=== PATIENT | female | born 1975 | race Hispanic/Latino ===

== ENCOUNTER 2017-12-01 17:04 | Emergency (ER) | payer BC ==
[2017-12-01] MEDS ORDERED: LIDOCAINE 1% MPF 5 ML VIAL ONE (17:57)
--- NOTE | 2017-12-01 18:20 | ER ---
Nurse's Notes 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 Transition of care: patient was not received from another setting of care. Complicating Factors: There are no complicating factors for this patient. Onset of symptoms was December 01, 2017. Care prior to arrival: None. 17:15 Method Of Arrival: Ambulatory 17:15 Acuity: EILEEN 4 hb Triage Assessment: 17:40 General: Appears in no apparent distress. rk2 17:40 General: Behavior is calm, cooperative. Pain: Complains of pain in 2nd finger left rk2 hand. Neuro: Level of Consciousness is alert, obeys commands, Oriented to person, place, time, situation. Respiratory: Reports Airway is patent Respiratory effort is even, unlabored. Derm: Skin is pink, warm \T\ dry. Injury Description: Laceration sustained to left hand. 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 - Social history:: Smoking status: Patient/guardian denies using tobacco. Screenin:40 Abuse screen: Denies threats or abuse. rk2 17:40 Nutritional screening: No deficits noted. Tuberculosis screening: No symptoms or risk rk2 factors identified. Fall Risk None identified. Assessment: 17:40 Injury Description: Laceration is clean, not bleeding. rk2 17:40 Musculoskeletal: No deficits noted. rk2 Vital Signs: 17:13 BP 178 / 99; Pulse 88; Resp 16; Temp 98.1; Pulse Ox 96% on R/A; Weight 98.88 kg; Height hb 5 ft. (152.40 cm); Pain 6/10; 17:13 Body Mass Index 42.57 (98.88 kg, 152.40 cm) hb ED Course: 17:06 Patient arrived in ED. as 17:15 Arm band placed on right wrist. hb 17:16 Triage completed. hb 17:27 Yousif Johnson PA is PHCP. jr8 17:27 Willi Raymond MD is Attending Physician. jr8 17:38 Shruti Talbert, SYMONE is Primary Nurse. rk2 17:40 Patient has correct armband on for positive identification. Bed in low position. Call rk2 light in reach. 18:48 No provider procedures requiring assistance completed. Patient did not have IV access rk2 during this emergency room visit. 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 Exp: rk2 01/18/2020. Lot #: [id number]. } Route: IM; Site: right deltoid; Outcome: 18:19 Discharge ordered by . jr8 18:48 Discharged to home ambulatory. rk2 18:48 Condition: good 18:48 Discharge instructions given to patient. 19:08 Patient left the ED. rk2 Signatures: Ofelia Ma as Yousif Johnson PA PA [facility] Sarah Contreras, RN RN Shruti Talbert, SYMONE RN rk2
--- NOTE | 2017-12-01 18:20 | EDPHYS ---
Physician Documentation [facility] Name: Alesia De Souza Age: 42 yrs Sex: Female : 1975 Arrival Date: 12/01/2017 Time: 17:06 Bed 20 Private MD: ED Physician Willi Raymond HPI: 12/01 17:37 This 42 yrs old Female presents to ER via Ambulatory with complaints of jr8 Laceration - Finger. 17:37 Onset: The symptoms/episode began/occurred acutely, today. Associated signs and jr8 symptoms: The patient has no apparent associated signs or symptoms. Severity of symptoms: At their worst the symptoms were mild, in the emergency department the symptoms are unchanged. The patient has not experienced similar symptoms in the past. The patient has not recently seen a physician. Patient stated that she accidently cut finger . 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 - Social history:: Smoking status: Patient/guardian denies using tobacco. ROS: 17:37 Eyes: Negative for injury, pain, redness, and discharge, ENT: Negative for injury, jr8 pain, and discharge, Neck: Negative for injury, pain, and swelling, Cardiovascular: Negative for chest pain, palpitations, and edema, Respiratory: Negative for shortness of breath, cough, wheezing, and pleuritic chest pain, Abdomen/GI: Negative for abdominal pain, nausea, vomiting, diarrhea, and constipation, Back: Negative for injury and pain, MS/Extremity: Negative for injury and deformity, Neuro: Negative for headache, weakness, numbness, tingling, and seizure. 17:37 Skin: Positive for laceration(s), of the left index finger. Exam: 17:37 Cardiovascular: Regular rate and rhythm with a normal S1 and S2. No gallops, murmurs, jr8 or rubs. Normal PMI, no JVD. No pulse deficits. Respiratory: Lungs have equal breath sounds bilaterally, clear to auscultation and percussion. No rales, rhonchi or wheezes noted. No increased work of breathing, no retractions or nasal flaring. MS/ Extremity: Pulses equal, no cyanosis. Neurovascular intact. Full, normal range of motion. Neuro: Awake and alert, GCS 15, oriented to person, place, time, and situation. Cranial nerves II-XII grossly intact. Motor strength 5/5 in all extremities. Sensory grossly intact. Cerebellar exam normal. Normal gait. 17:37 Skin: injury, laceration(s), the wound is approximately 2 cm(s), with a depth of .5 cm(s), of the left index finger, that can be described as no foreign body, irregular, with mild bleeding. Vital Signs: 17:13 BP 178 / 99; Pulse 88; Resp 16; Temp 98.1; Pulse Ox 96% on R/A; Weight 98.88 kg; Height hb 5 ft. (152.40 cm); Pain 6/10; 17:13 Body Mass Index 42.57 (98.88 kg, 152.40 cm) hb Laceration: 18:17 Wound Repair of 2cm ( 0.8in ) subcutaneous laceration to left index finger. Irregularly jr8 shaped.. Minimal bleeding noted.. Distal neuro/vascular/tendon intact. Anesthesia: Local anesthetic administered with 2 mls of 1% lidocaine. Wound prep: Extensive cleansing with hibiclenz, Wound explored extensively. Skin closed with 8 4-0 Prolene using interrupted sutures and sterile technique. Patient tolerated well. MDM: 17:27 Patient medically screened. jr8 18:17 Data reviewed: vital signs, nurses notes, and as a result, I will discharge patient. jr8 Data interpreted: Pulse oximetry: on room air is 96 %. Interpretation: normal. Counseling: I had a detailed discussion with the patient and/or guardian regarding: the historical points, exam findings, and any diagnostic results supporting the discharge/admit diagnosis, the need for outpatient follow up, a family practitioner, to return to the emergency department if symptoms worsen or persist or if there are any questions or concerns that arise at home. 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 Exp: rk2 01/18/2020. Lot #: [id number]. } Route: IM; Site: right deltoid; Disposition: 12/01/17 18:19 Discharged to Home. Impression: Laceration without foreign body of finger without damage to nail. - Condition is Stable. - Discharge Instructions: Laceration Care, Adult. - Medication Reconciliation Form, Thank You Letter, Antibiotic Education, Prescription Opioid Use form. - Follow up: Private Physician; When: 7 - 10 days; Reason: Wound Recheck, Recheck today's complaints, Continuance of care, Staple/Suture removal, Re-evaluation by your physician. - Problem is new. - Symptoms have improved. Addendum: 12/03/2017 07:56 Co-signature as Attending Physician, Willi Raymond MD I agree with the assessment and c redding plan of care. Signatures: Willi Raymond MD MD cha Roszak, Josh, PA PA jr8 Sarah Contreras RN Shruti Dobbins RN RN rk2
[2017-12-01] MEDS ORDERED: TETANUS & DIPHTHERIA TOX,ADULT 0.5 ML VIAL ONE (18:53)
[2017-12-01 19:19] VITALS: BP 178/99; TEMP 98.1; O2SAT 96
== END 2017-12-01 19:08 | disposition home or self-care (01) ==
LOC: ER 17:04
PROC: 0JQK0ZZ Repair Left Hand Subcutaneous Tissue and Fascia, Open Approach (ICD-10-PCS; principal; 2017-12-01)
DX: S61.211A Laceration without foreign body of left index finger without damage to nail, initial encounter (principal); I10 Essential (primary) hypertension; E11.9 Type 2 diabetes mellitus without complications; W45.8XXA Other foreign body or object entering through skin, initial encounter; Y93.9 Activity, unspecified; Y92.009 Unspecified place in unspecified non-institutional (private) residence as the place of occurrence of the external cause
CPT/HCPCS: 90714; 99283

== ENCOUNTER 2018-06-22 10:16 | Emergency (ER) | payer BC, SELFPAY ==
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
[2018-06-22 12:29] VITALS: TEMP 98.7; O2SAT 100
[2018-06-22 12:30] VITALS: BP 125/85
== END 2018-06-22 12:24 | disposition home or self-care (01) ==
LOC: ER 10:16
DX: S43.402A Unspecified sprain of left shoulder joint, initial encounter (principal); V43.52XA Car driver injured in collision with other type car in traffic accident, initial encounter; Y93.9 Activity, unspecified; Y92.410 Unspecified street and highway as the place of occurrence of the external cause; E11.9 Type 2 diabetes mellitus without complications; I10 Essential (primary) hypertension
CPT/HCPCS: 99283

== ENCOUNTER 2018-08-06 07:32 | Day surgery (SDC) | payer BC ==
[2018-08-06 07:48] LABS: Specific Gravity >= 1.030 (1.005-1.030)
[2018-08-06] MEDS ORDERED: NA CHLORIDE 0.9% 1,000 ML ONE ×2 (07:52→10:28)
[2018-08-06] MEDS ORDERED: FENTANYL CITR 250 MCG/5 ML ONE (08:02)
[2018-08-06] MEDS ORDERED: ROCURONIUM 50 MG/5 ML VIAL IV ONE (08:02)
[2018-08-06] MEDS ORDERED: LIDOCAINE 2% MPF 5 ML VIAL ONE (08:02)
[2018-08-06] MEDS ORDERED: PROPOFOL 200 MG/20 ML VIAL IV ONE (08:02)
[2018-08-06] MEDS ORDERED: ONDANSETRON HCL 40 MG/20 ML VIAL ONE (08:03)
[2018-08-06] MEDS ORDERED: MIDAZOLAM HCL 2 MG/2 ML INJ ONE (08:03)
[2018-08-06] MEDS: CEFAZOLIN/SWI 2gm 2 GM/20 ML SYR IV SCH ×2 (08:14→08:40)
[2018-08-06] MEDS ORDERED: FENTANYL CITR 100 MCG/2 ML ONE (10:36)
[2018-08-06] MEDS ORDERED: KETOROLAC 30 MG/ML INJ ONE (10:38)
[2018-08-06] MEDS ORDERED: HYDROCODONE/APAP 5/325 MG TAB ONE (12:32)
[2018-08-06] MEDS ORDERED: ONDANSETRON 4 MG/2 ML VIAL ONE (12:32)
[2018-08-06 13:27] VITALS: BP 154/84; TEMP 97.6; O2SAT 100
--- NOTE | 2018-08-13 13:05 | OP ---
Date of Procedure: 08/06/2018 Surgeon: Carla Yo MD Harness Maker: Paulie. Preoperative Diagnoses: Heavy menstrual bleeding, bloating, and desired sterilization. Postoperative Diagnoses: Heavy menstrual bleeding, bloating, desired sterilization, extensive omenta l adhesions, bladder adhesions and omental adhesions to the anterior abdominal wall as well as the en tire uterus. Procedures Performed: Diagnostic hysteroscopy followed by endometrial ablation, incomplete ablation with hydrothermal ablation system, but ablation was completed with the help of the NovaSure device. Then, diagnostic laparoscopy, extensive lysis of adhesions, which took more than 50% of the case, and then bilateral salpingectomy. Estimated Blood Loss: Minimal. Complications: No complications. Drains: No drains. Specimens: bilateral tube . Condition: The patient's condition stable. Findings: There were extensive bowel adhesions, omental adhesions anterior abdominal wall and laterally to the omentum and right round ligament omentum to the left adne xa. After all the adhesions were taken down, the tubes were removed completely. ablation, the cervix was extremely elongated , which was about the length of the cavity . Description Of Procedure: After informed consent was verified, she was taken back to the OR, placed in a supine fashion on the operating table. General anesthesia was given. She was placed in a dorsa l lithotomy position using Babatunde stirrups. Pelvic exam performed and abdomen, vulva, vagina, and per ineum were prepped and draped in a sterile fashion. 2 g of Ancef were given preop and SCDs were star geoff. Speculum was placed to expose the cervix both anteriorly and posteriorly, difficulty finding the cerv ix . Anterior lip was grasped with 2 Allis clamps, I was able to pull help of 2 Dasilva speculums and was introduced. The entire length of the cavity was well visualized, however, the HTA sheath entered all the way to the . There was no further lengt h for the HTA sheath to pass through. After priming the device, cavity integrity test was done 4 fidel es by making different adjustments, clamping the cervix. There was no evidence of any leak at any po int. However, once on the fourth attempt after adjusting the device in the uterus, I was able to do the 1 minute heating cycle, . So, once the machine shut off for the third time, we did cav ity integrity test and with drainage of fluid and the procedure was aborted. NovaSure device was taken and a stitch with 0 Vicryl was placed in a [id number] fashion on the _ helpful to keep the occlusion for the NovaSure device. The device was then introduced, amando nded to 11 cm. The cervix was measured directly with the help of the scope to 5.5 cm. Cavity length was set at 5.5 cm. The width of the cavity appeared to be very narrow and with 2 different deployme nts, the cavity only opened to 2 cm with the max 61 butler of power, time 1 minute 56 seconds for abla tion. Once removed and deployed and checked and there was good renetta on the mesh. Diagnostic hysteroscopy was performed. There was good and the scope was removed. Diagnos tic VCare was introduced and fixed in place. The Dukes was placed and drained. This area was draped . A 1 cm infraumbilical incision was made with a scalpel using open laparoscopy technique. Fascia was incised and peritoneum was entered after tagged. 0-Vicryl sutures were placed. S retractors were pl aced entering into the patient's left next to the umbilicus. Once this was obtained, gas was insufflated. Site of entry was checked and was unremarkable. There were adhesions from the ante rior posterior wall. A 5 mm left lower quadrant port was placed without any problems. en, after taking all the adhesions tubes. The tubes were removed 5 mm right lo wer quadrant incision was placed with retraction. Once thorough irrigation and suction done thorough irrigation and suction were performed o f desufflation. Gas was removed. Gas was removed through the abdominal cavity. Then, the stitch wa s closed as well. Then, we went on to finish the diagnostic laparoscopy. After everything was done, there were Vicryl sutures to close the small incision 0 Vicryl suture and subc utaneous incisions closed with the help of 4-0 Monocryl. Dukes, VCare removed. Instrumen t, needle, and sponge counts were done and were correct. At the end of the case, the patient tolerat ed the procedure well. EBL was minimal. She will follow up with me in 1 week. SANJEEV/LISETH Voice ID: [id number] Report ID: [id number]
== END 2018-08-06 13:25 | disposition home or self-care (01) ==
LOC: OR 07:32
PROVIDERS: ATTEND Obstetrics & Gynecology
PROC: 0DNU4ZZ Release Omentum, Percutaneous Endoscopic Approach (ICD-10-PCS; 2018-08-06)
PROC: 0UT74ZZ Resection of Bilateral Fallopian Tubes, Percutaneous Endoscopic Approach (ICD-10-PCS; 2018-08-06)
PROC: 0U5B8ZZ Destruction of Endometrium, Via Natural or Artificial Opening Endoscopic (ICD-10-PCS; principal; 2018-08-06 08:30)
DX: N92.0 Excessive and frequent menstruation with regular cycle (principal); Z30.2 Encounter for sterilization; K66.0 Peritoneal adhesions (postprocedural) (postinfection); N32.89 Other specified disorders of bladder; R14.0 Abdominal distension (gaseous); I10 Essential (primary) hypertension; Z82.49 Family history of ischemic heart disease and other diseases of the circulatory system; Z82.62 Family history of osteoporosis
CPT/HCPCS: 81025; 82962; 88302; J0690; J2250; J2405; J2704; J3010; J7030

== ENCOUNTER 2020-08-08 02:17 | Emergency (ER) | payer BC ==
--- OUTSIDE RECORDS SUMMARY | 2020-08-08 02:19 | XMS REPORT | Continuity of Care Document ---
:1975 Author Organization [facility] t Address [address] [place] [address] Care Team Providers Name Role Phone DR SADIQ Attending Clinician Unavailable Summer RN Attending Clinician Unavailable Pob1, [facility] Attending Clinician Unavailable DR SADIQ Admitting Clinician Unavailable Problems This patient has no known problems. Allergies, Adverse Reactions, Alerts This patient has no known allergies or adverse reactions. Medications This patient has no known medications. Procedures This patient has no known procedures. Encounters Start End Encounter Admission Attending Care Care Encounter Source Date/Time Date/Time Type Type Clinicians Facility Department ID 2020-07-30 2020-07-30 Outpatient Johanny [facility]ABC[facility] [id number] 06:30[facility]00 [facility] 2020-01-17 2020-01-17 Telephone DARRION Wheeler [id number] 00:00:00 00:00:00 Vanda BECK [id number] [facility] [id number] 2020-01-16 2020-01-16 Urgent Pob1, Acute [facility] [id number] 15:27:32 15:47:32 [facility] [id number] [place] [id number] [facility] [phone] nal 0[address] One Results Test Description Test Time Test Comments Results Result Comments Source GLUCOMETER GLUCOSE- LAB USE ONLY 2020-07-30 07:30:00 Test Item Value Reference Range Interpretation Comme nts GLUCOMETER (test code = GMG) 167 mg/dL 70-100 H Meter ID: [id number]: [id number] BACILIO KRISHNAN GLUCOMETER GLUCOSE- LAB USE [id number] 07:30:00 Test Item Value Reference Range Interpretation Comments GLUCOMETER (test code = 178 mg/dL 70-100 H Mete r ID: GMG) [id number] tor: [id number] BECKI SID URINE MONOCLONALFB2020-07-30 04:32:00 Test Item Value Reference Range Interpretation Comments PREG UR (test code = PGU) NEGATIVE NEGATIVE
[2020-08-08] MEDS ORDERED: ONDANSETRON 4 MG/2 ML VIAL ONE (02:47)
[2020-08-08] MEDS ORDERED: MORPHINE 4 MG/ML SYR ONE (02:47)
[2020-08-08] MEDS ORDERED: NA CHLORIDE 0.9% 1,000 ML ONE (02:47)
[2020-08-08] MEDS ORDERED: FAMOTIDINE 20 MG/2 ML VIAL IV ONE (02:47)
[2020-08-08 03:03] LABS: Urine Blood NEGATIVE (NEG); Urine Glucose NEGATIVE (NEG); Urine Protein NEGATIVE (NEG); Urine pH 8.5 (5.0-7.0)
[2020-08-08 03:17] LABS: Basophils % 0.6 % (0-1.3); Hematocrit 38.2 % (36.0-45.0); Lymphocytes % 38.5 % (15.3-44.8); MPV 9.2 fL (7.6-11.3); RBC Red Blood Cell Count 4.39 M/uL (3.86-4.86)
[2020-08-08 03:39] LABS: ALT/SGPT 51 U/L (12-78); AST/SGOT 37 U/L (15-37); Albumin 3.4 g/dL (3.4-5.0); Alkaline Phosphatase 124 U/L (45-117); BUN Blood Urea Nitrogen 9 mg/dL (7-18); Bicarbonate 28 mmol/L (21-32); Bilirubin Direct < 0.1 mg/dL (0-0.2); Bilirubin Total 0.2 mg/dL (0.2-1.0); Glucose Level 151 mg/dL (74-106); Lipase 212 U/L (73-393); Potassium 3.4 mmol/L (3.5-5.1); Protein, Total 8.6 g/dL (6.4-8.2); Sodium Level 138 mmol/L (136-145); Troponin (Emerg Dept Use Only) < 0.02 ng/mL (0.0-0.045)
--- NOTE | 2020-08-08 06:00 | EDPHYS ---
Physician Documentation [facility] Name: Alesia De Souza Age: 45 yrs Sex: Female : 1975 Arrival Date: 08/08/2020 Time: 02:18 Bed 5 Private MD: Wenceslao Garland R ED Physician Arden Adrian HPI: 08/08 02:35 This 45 yrs old Female presents to ER via Ambulatory with complaints of mh7 Abdominal Pain. 02:35 The patient presents with abdominal pain in the epigastric area. Onset: The mh7 symptoms/episode began/occurred 2 day(s) ago. 02:36 The symptoms do not radiate. Associated signs and symptoms:. mh7 02:37 Associated signs and symptoms: Pertinent positives: nausea, Pertinent negatives: mh7 anorexia, blood in stools, chest pain, constipation, diarrhea, dysuria, fever, headache, hematuria, palpitations, shortness of breath, vaginal discharge, vomiting, vomiting blood. The symptoms are described as intermittent, vague, waxing/waning. Modifying factors: The symptoms are alleviated by nothing, the symptoms are aggravated by nothing. Severity of pain: At its worst the pain was moderate last night, in the emergency department the pain is unchanged. 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 - Social history:: Smoking status: Patient reports the use of cigarette tobacco products, denies chronic smoking, but will smoke occasionally, Patient uses alcohol, occasionally. Patient/guardian denies using street drugs. ROS: 02:37 Constitutional: Negative for fever, chills, and weight loss, Eyes: Negative for injury, mh7 pain, redness, and discharge, ENT: Negative for injury, pain, and discharge, Neck: Negative for injury, pain, and swelling, Cardiovascular: Negative for chest pain, palpitations, and edema, Respiratory: Negative for shortness of breath, cough, wheezing, and pleuritic chest pain, Back: Negative for injury and pain, : Negative for injury, bleeding, discharge, and swelling, MS/Extremity: Negative for injury and deformity, Skin: Negative for injury, rash, and discoloration, Neuro: Negative for headache, weakness, numbness, tingling, and seizure, Psych: Negative for depression, anxiety, suicide ideation, homicidal ideation, and hallucinations, Allergy/Immunology: Negative for hives, rash, and allergies, Endocrine: Negative for neck swelling, polydipsia, polyuria, polyphagia, and marked weight changes, Hematologic/Lymphatic: Negative for swollen nodes, abnormal bleeding, and unusual bruising. Exam: 02:37 Head/Face: Normocephalic, atraumatic. Eyes: Pupils equal round and reactive to light, mh7 extra-ocular motions intact. Lids and lashes normal. Conjunctiva and sclera are non-icteric and not injected. Cornea within normal limits. Periorbital areas with no swelling, redness, or edema. Neck: Trachea midline, no thyromegaly or masses palpated, and no cervical lymphadenopathy. Supple, full range of motion without nuchal rigidity, or vertebral point tenderness. No Meningismus. Chest/axilla: Normal chest wall appearance and motion. Nontender with no deformity. No lesions are appreciated. Cardiovascular: Regular rate and rhythm with a normal S1 and S2. No gallops, murmurs, or rubs. Normal PMI, no JVD. No pulse deficits. Respiratory: Lungs have equal breath sounds bilaterally, clear to auscultation and percussion. No rales, rhonchi or wheezes noted. No increased work of breathing, no retractions or nasal flaring. 02:37 Back: No spinal tenderness. No costovertebral tenderness. Full range of motion. Skin: Warm, dry with normal turgor. Normal color with no rashes, no lesions, and no evidence of cellulitis. MS/ Extremity: Pulses equal, no cyanosis. Neurovascular intact. Full, normal range of motion. Neuro: Awake and alert, GCS 15, oriented to person, place, time, and situation. Cranial nerves II-XII grossly intact. Motor strength 5/5 in all extremities. Sensory grossly intact. Cerebellar exam normal. Normal gait. Psych: Awake, alert, with orientation to person, place and time. Behavior, mood, and affect are within normal limits. 02:37 Constitutional: The patient appears in no acute distress, alert, awake, uncomfortable. 02:37 Abdomen/GI: Inspection: obese Bowel sounds: normal, in all quadrants, Palpation: moderate abdominal tenderness, in the epigastric area, right upper quadrant and left upper quadrant, Rectal exam: the exam is deferred, because of patient request, Indicators: McBurney's point is not tender, Suresh's sign is negative, Rovsing's sign is negative, Obturator sign is negative, Psoas sign is negative, Liver: no appreciated palpable abnormalities, Hernia: not appreciated. Vital Signs: 02:25 BP 169 / 106; Pulse 71; Resp 19; Pulse Ox 99% ; Weight 94.8 kg; Height 5 ft. (152.40 rr5 cm); Pain 10/10; 02:31 Temp 97.7; ea 03:30 BP 161 / 95; Pulse 70; Resp 17; Pulse Ox 99% ; Pain 3/10; rr5 04:20 BP 136 / 70; Pulse 73; Resp 16; Pulse Ox 100% ; rr5 05:00 BP 145 / 85; Pulse 79; Resp 16; Pulse Ox 98% ; rr5 05:43 BP 114 / 69; Pulse 71; Resp 18; Pulse Ox 99% ; rr5 06:07 BP 116 / 62; Pulse 70; Resp 16; Pulse Ox 99% ; rr5 02:25 Body Mass Index 40.82 (94.80 kg, 152.40 cm) rr5 MDM: 05:56 Differential diagnosis: bowel obstruction, diverticulitis, gastritis, non-specific abd mh7 pain, pancreatitis, Peritonitis. Data reviewed: vital signs, nurses notes, lab test result(s), cardiac enzymes, CBC, electrolytes, urinalysis, EKG, radiologic studies, CT scan. Data interpreted: Pulse oximetry: on room air is 99 %. Interpretation: normal. Counseling: I had a detailed discussion with the patient and/or guardian regarding: the historical points, exam findings, and any diagnostic results supporting the discharge/admit diagnosis, lab results, radiology results, the need for outpatient follow up, to return to the emergency department if symptoms worsen or persist or if there are any questions or concerns that arise at home. Response to treatment: the patient's symptoms have resolved after treatment, the patient's blood pressure is in an acceptable range, mental status has returned to baseline, the patient no longer shows bradycardia, the patient is not short of breath, the patient is not tachycardic, the patient's pain is gone, the patient's temperature has normalized. 06:[address] [facility] 08/08 02:30 Order name: Basic Metabolic Panel; Complete Time: 04:07 [facility] 08/08 02:30 Order name: CBC with Diff; Complete Time: 03:26 [facility] 08/08 02:30 Order name: Hepatic Function; Complete Time: 04:07 [facility] 08/08 02:30 Order name: Lipase; Complete Time: 04:07 [facility] 08/08 02:30 Order name: Troponin (emerg Dept Use Only); Complete Time: 04:07 [facility] 08/08 02:59 Order name: Urine --Ancillary (enter results); Complete Time: 03:14 [facility] 08/08 02:30 Order name: IV Saline Lock; Complete Time: 02:34 [facility] 08/08 02:59 Order name: Urine Dipstick--Ancillary (enter results); Complete Time: 03:14 [facility] 08/08 04:09 Order name: CT Abd/Pelvis - IV Contrast Only [facility] 08/08 04:09 Order name: CT Chest For PE Angio [facility] 08/08 02:30 Order name: Labs collected and sent; Complete Time: 02:34 [facility] 08/08 02:30 Order name: Urine Dipstick-Ancillary (obtain specimen); Complete Time: 02:41 [facility] 08/08 02:30 Order name: Urine Test (obtain specimen); Complete Time: 02:41 [facility] Administered Medications: 02:40 Drug: NS 0.9% 1000 ml Route: IV; Rate: 1000 ml; Site: left antecubital; rr5 04:00 Follow up: Response: No adverse reaction; IV Status: Completed infusion; IV Intake: rr5 1000ml 02:40 Drug: Zofran (Ondansetron) 4 mg Route: IVP; Site: left antecubital; rr5 03:40 Follow up: Response: No adverse reaction rr5 02:42 Drug: Pepcid 20 mg Route: IVP; Site: left antecubital; rr5 03:40 Follow up: Response: No adverse reaction rr5 02:45 Drug: morphine 4 mg Route: IVP; Site: left antecubital; rr5 03:45 Follow up: Response: No adverse reaction; Pain is decreased; RASS: Alert and Calm (0) rr5 Disposition: 08/08/20 06:00 Discharged to Home. Impression: Upper abdominal pain, unspecified, Diverticulosis. - Condition is Stable. - Discharge Instructions: Diverticulosis, Abdominal Pain, Adult, [id number]. - Prescriptions for Zofran ODT 4 mg Oral tablet,disintegrating - place 1 tablet by TRANSLINGUAL route every 8 hours As needed; 6 tablet. Bentyl 20 mg Oral Tablet - take 1 tablet by ORAL route every 6 hours As needed; 20 tablet. Pepcid 20 mg Oral Tablet - take 1 tablet by ORAL route every 12 hours for 5 days; 10 tablet. - Medication Reconciliation Form, Thank You Letter, Antibiotic Education, Prescription Opioid Use form. - Follow up: Private Physician; When: 1 - 2 days; Reason: Worsening of condition, Recheck today's complaints, Continuance of care, Re-evaluation by your physician. - Problem is new. - Symptoms have improved. Signatures: Dispatcher [employer] EDJoseph Nagel RN RN rr5 Arden Adrian MD MD mh7 Corrections: (The following items were deleted from the chart) 06:08 06:00 08/08/2020 06:00 Discharged to Home. Impression: Upper abdominal pain, rr5 unspecified; Diverticulosis. Condition is Stable. Forms are Medication Reconciliation Form, Thank You Letter, Antibiotic Education, Prescription Opioid Use. Follow up: Private Physician; When: 1 - 2 days; Reason: Worsening of condition, Recheck today's complaints, Continuance of care, Re-evaluation by your physician. Problem is new. Symptoms have improved. mh7
--- NOTE | 2020-08-08 06:00 | ER ---
Nurse's Notes [facility] Name: Alesia De Souza Age: 45 yrs Sex: Female : 1975 Arrival Date: 08/08/2020 Time: 02:18 Bed 5 Private MD: Wenceslao Garland R Diagnosis: Upper abdominal pain, unspecified;Diverticulosis Presentation: 08/08 02:25 Chief complaint: Patient states: I have this epigastric pain started couple of days rr5 ago. I took kishan seltzer and milk of magnesia but it did not work it got worse and worse. 02:25 Coronavirus screen: Client denies travel out of the [place] in the last 14 days. At this rr5 time, the client does not indicate any symptoms associated with coronavirus-19. Ebola Screen: Patient negative for fever greater than or equal to 101.5 degrees Fahrenheit, and additional compatible Ebola Virus Disease symptoms Patient denies exposure to infectious person. Patient denies travel to an Ebola-affected area in the 21 days before illness onset. Initial Sepsis Screen: Does the patient meet any 2 criteria? No. Patient's initial sepsis screen is negative. Does the patient have a suspected source of infection? No. Patient's initial sepsis screen is negative. Risk Assessment: Do you want to hurt yourself or someone else? Patient reports no desire to harm self or others. Onset of symptoms was August 08, 2020. 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 - Social history:: Smoking status: Patient reports the use of cigarette tobacco products, denies chronic smoking, but will smoke occasionally, Patient uses alcohol, occasionally. Patient/guardian denies using street drugs. Screenin:20 Abuse screen: Denies threats or abuse. Denies injuries from another. Nutritional rr5 screening: No deficits noted. Tuberculosis screening: No symptoms or risk factors identified. Fall Risk IV access (20 points). Total Johnson Fall Scale indicates No Risk (0-24 pts). Assessment: 02:20 General: Appears in no apparent distress. uncomfortable, Behavior is calm, cooperative, rr5 appropriate for age. 02:20 Pain: Complains of pain in epigastric area Pain radiates to back Pain currently is 10 rr5 out of 10 on a pain scale. Quality of pain is described as aching, Pain began gradually, Is intermittent. Neuro: Level of Consciousness is awake, alert, obeys commands, Oriented to person, place, time, situation. Cardiovascular: Capillary refill < 3 seconds Patient's skin is warm and dry. Respiratory: Airway is patent Respiratory effort is even, labored, Respiratory pattern is regular, symmetrical. GI: Reports upper abdominal pain, Patient currently denies nausea, vomiting. : No signs and/or symptoms were reported regarding the genitourinary system. EENT: No signs and/or symptoms were reported regarding the EENT system. Derm: Skin is intact, is healthy with good turgor, Skin temperature is warm. Musculoskeletal: Circulation, motion, and sensation intact. Capillary refill < 3 seconds. 03:30 Reassessment: Patient appears in no apparent distress at this time. Patient is alert, rr5 oriented x 3, equal unlabored respirations, skin warm/dry/pink. awaiting for results. 04:30 Reassessment: Patient appears in no apparent distress at this time. Patient is alert, rr5 oriented x 3, equal unlabored respirations, skin warm/dry/pink. awaiting for review Patient states symptoms have improved. 05:44 Reassessment: Patient appears in no apparent distress at this time. Patient is alert, rr5 oriented x 3, equal unlabored respirations, skin warm/dry/pink. resting eyes closed on side lying position breathing spontaneously at room air. 06:07 Reassessment: Patient appears in no apparent distress at this time. Patient is alert, rr5 oriented x 3, equal unlabored respirations, skin warm/dry/pink. discharge instruction given and explained without complaints made. Vital Signs: 02:25 BP 169 / 106; Pulse 71; Resp 19; Pulse Ox 99% ; Weight 94.8 kg; Height 5 ft. (152.40 rr5 cm); Pain 10/10; 02:31 Temp 97.7; ea 03:30 BP 161 / 95; Pulse 70; Resp 17; Pulse Ox 99% ; Pain 3/10; rr5 04:20 BP 136 / 70; Pulse 73; Resp 16; Pulse Ox 100% ; rr5 05:00 BP 145 / 85; Pulse 79; Resp 16; Pulse Ox 98% ; rr5 05:43 BP 114 / 69; Pulse 71; Resp 18; Pulse Ox 99% ; rr5 06:07 BP 116 / 62; Pulse 70; Resp 16; Pulse Ox 99% ; rr5 02:25 Body Mass Index 40.82 (94.80 kg, 152.40 cm) rr5 ED Course: 02:18 Patient arrived in ED. am2 02:18 Wenceslao Garland MD is Private Physician. am2 02:18 Joseph Moore RN is Primary Nurse. rr5 02:18 Arden Adrian MD is Attending Physician. mh7 02:20 Patient has correct armband on for positive identification. Bed in low position. Call rr5 light in reach. Pulse ox on. NIBP on. 02:29 Triage completed. rr5 02:30 Inserted saline lock: 20 gauge in left antecubital area, using aseptic technique. Blood ds4 collected. 02:31 Arm band placed on right wrist. rr5 04:00 No provider procedures requiring assistance completed. Patient maintains SpO2 rr5 saturation greater than 95% on room air. 04:57 CT Abd/Pelvis - IV Contrast Only In Process Unspecified. EDMS 04:57 CT Chest For PE Angio In Process Unspecified. EDMS 06:08 IV discontinued, intact, bleeding controlled, No redness/swelling at site. Pressure rr5 dressing applied. Administered Medications: 02:40 Drug: NS 0.9% 1000 ml Route: IV; Rate: 1000 ml; Site: left antecubital; rr5 04:00 Follow up: Response: No adverse reaction; IV Status: Completed infusion; IV Intake: rr5 1000ml 02:40 Drug: Zofran (Ondansetron) 4 mg Route: IVP; Site: left antecubital; rr5 03:40 Follow up: Response: No adverse reaction rr5 02:42 Drug: Pepcid 20 mg Route: IVP; Site: left antecubital; rr5 03:40 Follow up: Response: No adverse reaction rr5 02:45 Drug: morphine 4 mg Route: IVP; Site: left antecubital; rr5 03:45 Follow up: Response: No adverse reaction; Pain is decreased; RASS: Alert and Calm (0) rr5 Intake: 04:00 IV: 1000ml; Total: 1000ml. rr5 Outcome: 06:00 Discharge ordered by MD. hinojosa 06:08 Discharged to home ambulatory. rr5 06:08 Condition: improved 06:08 Discharge instructions given to patient, Instructed on discharge instructions, follow up and referral plans. medication usage, Demonstrated understanding of instructions, follow-up care, medications, Prescriptions given X 3. 06:08 Patient left the ED. rr5 Signatures: Dispatcher [employer] EDMS Darrel Robert ds4 Alexandra Morgan am2 Deedee Ledesma, Joseph Mott RN, ea, RN RN rr5 Arden Adrian MD MD 7
[2020-08-08 08:54] VITALS: TEMP 97.7
[2020-08-08 09:05] VITALS: O2SAT 99
[2020-08-08 09:06] VITALS: BP 116/62
--- NOTE | 2020-08-09 09:56 | RAD REPORT ---
EXAM DESCRIPTION: CT - Chest For Pe Angio - 08/08/2020 5:32 am CLINICAL HISTORY: Pain. COMPARISON: None. TECHNIQUE: Axial CT imaging of the thorax utilizing intravenous contrast. Reformatted multiplanar im ages obtained including reconstructed maximum intensity projection images. This exam was performed according to our departmental dose-optimization program which includes automa geoff exposure control, adjustment of the mA and/or kV according to patient size and/or use of iterativ e reconstruction technique FINDINGS: PULMONARY ARTERIES: Normal caliber main pulmonary artery. There is no pulmonary artery filling defect to suggest embolism. HEART/GREAT VESSELS: Heart is normal in size. Normal caliber thoracic aorta. There is a bovine b ranch pattern of the arch vessels. MEDIASTINUM/TK: No adenopathy. Normal central airways. Normal esophagus. LUNGS/PLEURA: Lungs are clear. No pneumothorax. No pleural fluid. Lung volumes are low. CHEST WALL/SOFT TISSUES: Unremarkable thyroid. No axillary adenopathy. The sternum is intact. Mild thoracic spondylosis. UPPER ABDOMEN: There is moderate fatty liver infiltration. Unremarkable spleen, pancreas, and imag ed stomach. Left adrenal gland appears normal. IMPRESSION: 1. No pulmonary embolism. No acute cardia pulmonary finding. 2. Moderate fatty liver infiltration. 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 The interpreting r adiologist is fully responsible for the content of the report.
--- NOTE | 2020-08-09 10:49 | RAD REPORT ---
EXAM DESCRIPTION: CT - Abdomen Pelvis W Contrast - 08/08/2020 6:58 am CLINICAL HISTORY: Epigastric pain for 2 to 3 days. COMPARISON: CT abdomen and pelvis with contrast 11/14/2016. TECHNIQUE: Axial CT imaging of the abdomen and pelvis performed with intravenous contrast. Reformatt ed coronal and sagittal images reviewed. A dose reduction technique was utilized with automated exposure control according to patient size. FINDINGS: Clear lung bases. Heart is normal in size. Liver is enlarged to greater than 22 cm. No liver mass or biliary dilatation. Gallbladder has bee n resected. Normal spleen. There is fatty atrophy of the pancreas. Unremarkable adrenal glands and kidneys. Normal caliber aorta and inferior vena cava. No retroperitoneal lymphadenopathy. M esenteric vessels appear normal. Unremarkable stomach. Small bowel loops are unremarkable. Normal appendix in the right lower quad rant. Numerous fluid levels within the ascending and transverse colon. Mild descending and sigmoi d colon diverticulosis. No diverticulitis. No ascites or free air. No mesenteric adenopathy. Normal appearance of the bladder and uterus. Small left ovarian follicles. There is a 3.2 cm righ t ovarian follicle. No pelvic free fluid or adenopathy. Moderate lower thoracic spondylosis. No rmal lumbosacral alignment. Intact bony pelvis. Normal hips. IMPRESSION: 1. Marked hepatomegaly with moderate steatosis. 2. Fluid levels within the colon suggestive of mild enteritis. 3. Mild descending and sigmoid colon diverticulosis without diverticulitis. 4. 3.2 cm right ovarian follicle. Electronically signed by: Dayana Rousseau DO 08/08/2020 5:45 AM LABORER [employer]ROLE[employer] REFINERY Due to temporary technical issues with the PACS/Fluency reporting system, reports are being signed by the in house radiologist without review as a courtesy to ensure prompt reporting. The interpreting r adiologist is fully responsible for the content of the report.
== END 2020-08-08 06:08 | disposition home or self-care (01) ==
LOC: ER 02:17
DX: K57.30 Diverticulosis of large intestine without perforation or abscess without bleeding (principal); I10 Essential (primary) hypertension; E11.9 Type 2 diabetes mellitus without complications; Z72.0 Tobacco use
CPT/HCPCS: 96361; 93005; 85025; 80048; 36415; 81025; 80076; 81003; 84484; 83690; 71275; 74177; 96375; 96374; 99284; Q9967; J7030; J2405

== ENCOUNTER 2020-08-10 01:12 | Emergency (ER) | payer BC ==
[2020-08-10] MEDS ORDERED: LIDOCAINE VISCOUS 2% SOLN 15 ML UDC PO ONE (01:13)
--- OUTSIDE RECORDS SUMMARY | 2020-08-10 01:13 | XMS REPORT | Continuity of Care Document ---
:1975 Author Organization [facility] t Address [address] [place] [address] Care Team Providers Name Role Phone DR SADIQ Attending Clinician Unavailable Summer RN Attending Clinician Unavailable Pob1, [facility] Attending Clinician Unavailable DR [...] Department ID 2020-07-30 2020-07-30 Outpatient Johanny [facility]ABCOCK [facility] [id number] 06[facility]30[facility]00 [facility] 2020-01-17 2020-01-17 Telephone DARRION Wheeler [id number] 00:00:00 00:00:00 Vanda BECK [id number] [facility] [id number] 2020-01-16 2020-01-16 Urgent Pob1, Acute [facility] [id number] 15:27:32 15:47:32 [facility] [id number] [place] [id number] [facility] [phone] nal 0[address] One Results Test Description Test Time Test Comments Results Result Comments Source GLUCOMETER GLUCOSE- LAB USE ONLY 2020-07-30 07:30:00 Test Item Value Reference Range Interpretation Comme nts GLUCOMETER (test code = GMG) 167 mg/dL 70-100 H Meter ID: [id number]: [id number] BACILIO KRISHNAN GLUCOMETER GLUCOSE- LAB USE [id number] 07:30:00 Test Item Value Reference Range Interpretation Comments GLUCOMETER (test code = 178 mg/dL 70-100 H Mete r ID: GMG) [id number] tor: [id number] BECKI SID URINE MONOCLONALFB2020-07-30 04:32:00 Test Item Value Reference Range Interpretation Comments PREG UR (test code = PGU) NEGATIVE NEGATIVE
[2020-08-10] MEDS ORDERED: ONDANSETRON 4 MG/2 ML VIAL ONE (02:23)
[2020-08-10] MEDS ORDERED: HYDROMORPHONE HCL 1 MG/ML INJ ONE (02:23)
[2020-08-10] MEDS ORDERED: MAGNES/ALUMIN/SIMET 30ML UCUP ONE (02:23)
[2020-08-10] MEDS ORDERED: FAMOTIDINE 20 MG/2 ML VIAL IV ONE (02:23)
[2020-08-10 02:44] LABS: Absolute Lymphocytes (CBC) 3.5 K/uL (0.7-4.9); Hematocrit 36.7 % (36.0-45.0); Lymphocytes % 32.9 % (15.3-44.8); MPV 9.1 fL (7.6-11.3); RBC Red Blood Cell Count 4.22 M/uL (3.86-4.86)
[2020-08-10 02:54] LABS: ALT/SGPT 53 U/L (12-78); AST/SGOT 36 U/L (15-37); Albumin 3.2 g/dL (3.4-5.0); Alkaline Phosphatase 113 U/L (45-117); BUN Blood Urea Nitrogen 13 mg/dL (7-18); Bicarbonate 26 mmol/L (21-32); Bilirubin Direct < 0.1 mg/dL (0-0.2); Bilirubin Total 0.2 mg/dL (0.2-1.0); Glucose Level 194 mg/dL (74-106); Lipase 267 U/L (73-393); Potassium 3.9 mmol/L (3.5-5.1); Sodium Level 137 mmol/L (136-145)
[2020-08-10] MEDS ORDERED: CEFTRIAXONE/SWI 1gm 1 GM/10 ML SYR ONE (03:11)
[2020-08-10] MEDS ORDERED: METRONIDAZOLE 500mg IVPB 500 MG/100 ML BAG IV ONE (03:11)
[2020-08-10] MEDS ORDERED: NA CHLORIDE 0.9% 1,000 ML ONE (03:42)
--- NOTE | 2020-08-10 04:36 | EDPHYS ---
Physician Documentation [facility] Name: Alesia De Souza Age: 45 yrs Sex: Female : 1975 Arrival Date: 08/10/2020 Time: 01:14 Bed 4 Private MD: ED Physician Fredrick Vazquez HPI: 08/10 02:16 This 45 yrs old Female presents to ER via Ambulatory with complaints of abd ma2 pain. 02:16 The patient or guardian reports chest pain that is located primarily in the upper ma2 abdomin. Onset: gradually, 1 week(s) ago. Associated signs and symptoms: Pertinent negatives: cough, dizziness, lower extremity pain, nausea, syncope, vomiting. Severity of pain: At its worst the pain was moderate in the emergency department the pain is unchanged. 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 - Social history:: Smoking status: unknown Patient/guardian denies using alcohol, street drugs, The patient lives with family. - Family history:: not pertinent. ROS: 02:16 Constitutional: Negative for fever, chills, and weight loss. ma2 02:16 All other systems are negative. Exam: 02:16 Constitutional: This is a well developed, well nourished patient who is awake, alert, ma2 and in no acute distress. Head/Face: Normocephalic, atraumatic. Eyes: Pupils equal round and reactive to light, extra-ocular motions intact. Lids and lashes normal. Conjunctiva and sclera are non-icteric and not injected. Cornea within normal limits. Periorbital areas with no swelling, redness, or edema. ENT: Nares patent. No nasal discharge, no septal abnormalities noted. Tympanic membranes are normal and external auditory canals are clear. Oropharynx with no redness, swelling, or masses, exudates, or evidence of obstruction, uvula midline. Mucous membranes moist. Neck: Trachea midline, no thyromegaly or masses palpated, and no cervical lymphadenopathy. Supple, full range of motion without nuchal rigidity, or vertebral point tenderness. No Meningismus. Chest/axilla: Normal chest wall appearance and motion. Nontender with no deformity. No lesions are appreciated. Cardiovascular: Regular rate and rhythm with a normal S1 and S2. No gallops, murmurs, or rubs. Normal PMI, no JVD. No pulse deficits. Respiratory: Lungs have equal breath sounds bilaterally, clear to auscultation and percussion. No rales, rhonchi or wheezes noted. No increased work of breathing, no retractions or nasal flaring. Abdomen/GI: Soft, non-tender, with normal bowel sounds. No distension or tympany. No guarding or rebound. No evidence of tenderness throughout. Skin: Warm, dry with normal turgor. Normal color with no rashes, no lesions, and no evidence of cellulitis. MS/ Extremity: Pulses equal, no cyanosis. Neurovascular intact. Full, normal range of motion. Neuro: Awake and alert, GCS 15, oriented to person, place, time, and situation. Cranial nerves II-XII grossly intact. Motor strength 5/5 in all extremities. Sensory grossly intact. Cerebellar exam normal. Normal gait. Vital Signs: 01:20 BP 193 / 90; Pulse 80; Resp 20; Temp 98.6; Pulse Ox 99% on R/A; rr5 01:20 Weight 94.8 kg; Height 5 ft. 2 in. (157.48 cm); Pain 10/10; rr5 02:30 BP 139 / 71; Pulse 68; Resp 18; Pulse Ox 95% on R/A; wh 03:24 BP 133 / 75; Pulse 84; Resp 19; Pulse Ox 99% ; rr5 04:46 BP 121 / 80; Pulse 80; Resp 16; Pulse Ox 99% ; rr5 01:20 Body Mass Index 38.23 (94.80 kg, 157.48 cm) rr5 MDM: 01:18 Patient medically screened. ma2 02:16 Differential diagnosis: gastroesophageal reflux disease (GERD), pancreatitis, pleurisy, ma2 pneumonia. Data reviewed: vital signs, nurses notes. Counseling: I had a detailed discussion with the patient and/or guardian regarding: the historical points, exam findings, and any diagnostic results supporting the discharge/admit diagnosis, the presence of at least one elevated blood pressure reading (>120/80) during this emergency department visit. 04:33 ED course: ct shows simple diverticulitis, she was here 2 days ago and was given ma2 prescription of antibiotics, however she did not take them as she was getting dental work and was told to stay npo, npw patient feels better, all symptoms resolved, vs wnl and blood work wnl . 08/10 02:09 Order name: Basic Metabolic Panel; Complete Time: 03:37 ma2 08/10 02:09 Order name: CBC with Diff; Complete Time: 03:37 ma2 08/10 02:09 Order name: Hepatic Function; Complete Time: 03:37 ma2 08/10 02:09 Order name: Lipase; Complete Time: 03:37 ma2 08/10 02:09 Order name: CT Abd/Pelvis - IV Contrast Only ma2 08/10 01:43 Order name: EKG - Nurse/Tech; Complete Time: 01:43 rr5 08/10 02:09 Order name: IV Saline Lock; Complete Time: 02:16 ma2 08/10 02:09 Order name: Labs collected and sent; Complete Time: 02:16 ma2 Administered Medications: 02:13 Drug: GI Cocktail without - (Maalox Suspension 30 ml, Lidocaine Liquid 2 % 15 rr5 ml) Route: PO; 03:22 Follow up: Response: No adverse reaction; Pain is decreased 02:14 Drug: Pepcid 20 mg Route: IVP; Site: left antecubital; rr5 03:22 Follow up: Response: No adverse reaction 02:15 Drug: Zofran (Ondansetron) 4 mg Route: IVP; Site: left antecubital; rr5 03:23 Follow up: Response: No adverse reaction 02:16 Drug: NS 0.9% 1000 ml Route: IV; Rate: 1 bolus; Site: left antecubital; rr5 03:23 Follow up: Response: No adverse reaction; IV Status: Completed infusion 02:18 Drug: Dilaudid 1 mg {Note: rass 0.} Route: IVP; Site: left antecubital; rr5 03:23 Follow up: Response: No adverse reaction; Pain is decreased; RASS: Alert and Calm (0) 03:20 Drug: Rocephin 1 grams Route: IV; Rate: calculated rate; Site: left antecubital; 03:45 Follow up: Response: No adverse reaction; IV Status: Completed infusion; IV Intake: [id number] 03:22 Drug: Flagyl 500 mg Volume: 100 ml; Route: IVPB; Rate: 200 ml/hr; Infused Over: 30 wh mins; Site: left antecubital; 04:05 Follow up: Response: No adverse reaction; IV Status: Completed infusion; IV Intake: rr5 100ml Disposition: 08/10/20 04:35 Discharged to Home. Impression: Diverticulitis of intestine, part unspecified, without perforation or abscess without bleeding. - Condition is Stable. - Discharge Instructions: Diverticulitis. - Prescriptions for Zofran 4 mg Oral Tablet - take 1 tablet by ORAL route every 12 hours As needed; 20 tablet. Pepcid 20 mg Oral Tablet - take 1 tablet by ORAL route once daily for 10 days; 10 tablet. - Medication Reconciliation Form, Thank You Letter, Antibiotic Education, Prescription Opioid Use form. - Follow up: Private Physician; When: Tomorrow; Reason: Continuance of care. Signatures: Dispatcher [employer] EDMS Tootie Blanco Frerdick Vazquez MD MD ma2 Joseph Moore RN RN rr5 Corrections: (The following items were deleted from the chart) 04:47 04:35 08/10/2020 04:35 Discharged to Home. Impression: Diverticulitis of intestine, rr5 part unspecified, without perforation or abscess without bleeding. Condition is Stable. Prescriptions for Zofran 4 mg Oral Tablet - take 1 tablet by ORAL route every 12 hours As needed; 20 tablet, Pepcid 20 mg Oral Tablet - take 1 tablet by ORAL route once daily for 10 days; 10 tablet. and Forms are Medication Reconciliation Form, Thank You Letter, Antibiotic Education, Prescription Opioid Use. Follow up: Private Physician; When: Tomorrow; Reason: Continuance of care. uday
--- NOTE | 2020-08-10 04:36 | ER ---
Nurse's Notes [facility] Name: Alesia De Souza Age: 45 yrs Sex: Female : 1975 Arrival Date: 08/10/2020 Time: 01:14 Bed 4 Private MD: Diagnosis: Diverticulitis of intestine, part unspecified, without perforation or abscess without bleeding Presentation: 08/10 01:20 Chief complaint: Patient states: having this chest pain going to my back. the pain is rr5 same as before when I came here. 01:20 Coronavirus screen: Client denies travel out of the [place] in the last 14 days. At this rr5 time, the client does not indicate any symptoms associated with coronavirus-19. Ebola Screen: Patient negative for fever greater than or equal to 101.5 degrees Fahrenheit, and additional compatible Ebola Virus Disease symptoms Patient denies exposure to infectious person. Patient denies travel to an Ebola-affected area in the 21 days before illness onset. 01:20 Method Of Arrival: Ambulatory rr5 01:20 Initial Sepsis Screen: Does the patient meet any 2 criteria? No. Patient's initial rr5 sepsis screen is negative. Does the patient have a suspected source of infection? No. Patient's initial sepsis screen is negative. Risk Assessment: Do you want to hurt yourself or someone else? Patient reports no desire to harm self or others. 01:20 Acuity: EILEEN 3 rr5 01:20 Onset of symptoms was August 09, 2020 at 18:00. 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 - Social history:: Smoking status: unknown Patient/guardian denies using alcohol, street drugs, The patient lives with family. - Family history:: not pertinent. Screenin:19 Abuse screen: Denies threats or abuse. Denies injuries from another. Nutritional rr5 screening: No deficits noted. Tuberculosis screening: No symptoms or risk factors identified. Fall Risk IV access (20 points). Total Johnson Fall Scale indicates No Risk (0-24 pts). Assessment: 01:30 General: Appears in no apparent distress. uncomfortable, Behavior is calm, cooperative, wh appropriate for age. Pain: Complains of pain in right upper quadrant and left upper quadrant Pain does not radiate. Pain began 2-3 days ago. Neuro: Level of Consciousness is awake, alert, obeys commands, Oriented to person, place, time, situation, Appropriate for age. Cardiovascular: Heart tones S1 S2. Respiratory: Airway is patent Respiratory effort is even, unlabored, Respiratory pattern is regular, symmetrical, Breath sounds are clear bilaterally. GI: Abdomen is flat, non-distended, Abd is soft and non tender X 4 quads. Reports upper abdominal pain. : No signs and/or symptoms were reported regarding the genitourinary system. EENT: No signs and/or symptoms were reported regarding the EENT system. Derm: Skin is intact, is healthy with good turgor, Skin is pink, warm \T\ dry. normal. Musculoskeletal: Circulation, motion, and sensation intact. 02:25 Reassessment: Patient appears in no apparent distress at this time. No changes from previously documented assessment. Patient and/or family updated on plan of care and expected duration. Pain level reassessed. Patient is alert, oriented x 3, equal unlabored respirations, skin warm/dry/pink. 03:24 Reassessment: Patient appears in no apparent distress at this time. Patient is alert, rr5 oriented x 3, equal unlabored respirations, skin warm/dry/pink. back from CTscan. 03:40 Reassessment: Patient appears in no apparent distress at this time. Patient is alert, rr5 oriented x 3, equal unlabored respirations, skin warm/dry/pink. awaiting for CT result Patient states feeling better. Patient states symptoms have improved. 04:45 Reassessment: Patient appears in no apparent distress at this time. Patient is alert, rr5 oriented x 3, equal unlabored respirations, skin warm/dry/pink. discharge instruction given and explained without complaints made Patient states feeling better. Patient states symptoms have improved. Vital Signs: 01:20 BP 193 / 90; Pulse 80; Resp 20; Temp 98.6; Pulse Ox 99% on R/A; rr5 01:20 Weight 94.8 kg; Height 5 ft. 2 in. (157.48 cm); Pain 10/10; rr5 02:30 BP 139 / 71; Pulse 68; Resp 18; Pulse Ox 95% on R/A; wh 03:24 BP 133 / 75; Pulse 84; Resp 19; Pulse Ox 99% ; rr5 04:46 BP 121 / 80; Pulse 80; Resp 16; Pulse Ox 99% ; rr5 01:20 Body Mass Index 38.23 (94.80 kg, 157.48 cm) rr5 ED Course: 01:14 Patient arrived in ED. cl3 01:17 Joseph Moore, RN is Primary Nurse. rr5 01:18 Fredrick Vazquez MD is Attending Physician. ma2 01:30 Patient maintains SpO2 saturation greater than 95% on room air. wh 01:30 EKG done, by ED staff, reviewed by Fredrick Vazquez MD. rr5 01:30 Patient has correct armband on for positive identification. Placed in gown. Bed in low wh position. Call light in reach. Side rails up X 1. stitcher set up operator automatic on. Pulse ox on. NIBP on. 01:34 Inserted saline lock: 20 gauge in left antecubital area, using aseptic technique. Blood jb5 collected. 01:40 Triage completed. rr5 01:40 Arm band placed on right wrist. rr5 03:43 CT Abd/Pelvis - IV Contrast Only In Process Unspecified. EDMS 04:46 No provider procedures requiring assistance completed. IV discontinued, intact, rr5 bleeding controlled, No redness/swelling at site. Pressure dressing applied. Administered Medications: 02:13 Drug: GI Cocktail without - (Maalox Suspension 30 ml, Lidocaine Liquid 2 % 15 rr5 ml) Route: PO; 03:22 Follow up: Response: No adverse reaction; Pain is decreased 02:14 Drug: Pepcid 20 mg Route: IVP; Site: left antecubital; rr5 03:22 Follow up: Response: No adverse reaction 02:15 Drug: Zofran (Ondansetron) 4 mg Route: IVP; Site: left antecubital; rr5 03:23 Follow up: Response: No adverse reaction 02:16 Drug: NS 0.9% 1000 ml Route: IV; Rate: 1 bolus; Site: left antecubital; rr5 03:23 Follow up: Response: No adverse reaction; IV Status: Completed infusion 02:18 Drug: Dilaudid 1 mg {Note: rass 0.} Route: IVP; Site: left antecubital; rr5 03:23 Follow up: Response: No adverse reaction; Pain is decreased; RASS: Alert and Calm (0) 03:20 Drug: Rocephin 1 grams Route: IV; Rate: calculated rate; Site: left antecubital; 03:45 Follow up: Response: No adverse reaction; IV Status: Completed infusion; IV Intake: [id number] 03:22 Drug: Flagyl 500 mg Volume: 100 ml; Route: IVPB; Rate: 200 ml/hr; Infused Over: 30 wh mins; Site: left antecubital; 04:05 Follow up: Response: No adverse reaction; IV Status: Completed infusion; IV Intake: rr5 100ml Intake: 03:45 IV: 10ml; Total: 10ml. rr5 04:05 IV: 100ml; Total: 110ml. rr5 Outcome: 04:35 Discharge ordered by . ma2 04:46 Discharged to home ambulatory. rr5 04:46 Condition: stable 04:46 Discharge instructions given to patient, Instructed on discharge instructions, follow up and referral plans. medication usage, Demonstrated understanding of instructions, follow-up care, medications, Prescriptions given X 2. 04:47 Patient left the ED. rr5 Signatures: Dispatcher [employer] EDMS Portia Dixon jbTootie Oliver Fredrick Vazquez MD MD ma2 Joseph Moore, RN RN rr5 Bela Nunn cl3
[2020-08-10 04:58] VITALS: TEMP 98.6
[2020-08-10 05:01] VITALS: O2SAT 99
[2020-08-10 05:03] VITALS: BP 121/80
--- NOTE | 2020-08-10 13:28 | RAD REPORT ---
EXAM DESCRIPTION: CT - Abdomen Pelvis W Contrast - 08/10/2020 6:52 am CLINICAL HISTORY: ABD PAIN TECHNIQUE: Contiguous axial images obtained through the abdomen and pelvis following the uneventful administration of IV contrast. Coronal and sagittal reformatted images were provided. This exam was performed according to our departmental dose-optimization program, which includes autom ated exposure control, adjustment of the mA and/or kV according to patient size and/or use of iterati ve reconstruction technique. COMPARISON: 08/08/2020 FINDINGS: Lung bases: Clear Liver: The liver is enlarged and diffusely low in density compatible with steatosis. Gallbladder and biliary system: Prior cholecystectomy. Pancreas: Mild fatty replacement of the pancreas. Spleen: Unremarkable Adrenals: Unremarkable Kidneys: Normal renal cortical enhancement. Punctate calculi bilaterally. No hydronephrosis. Bowel: Duodenal diverticulum. Colonic diverticula are present. Subtle infiltrative changes adjacent t o a diverticulum at the proximal sigmoid colon. No obstruction. Appendix: Normal caliber appendix. No findings to suggest acute appendicitis. Urinary bladder: The urinary bladder is partially decompressed Reproductive: 3.5 cm right ovarian cyst, similar to the prior. The uterus and left ovary are unremark able as visualized. Lymph nodes: No pathologically enlarged lymph nodes. Peritoneum: No focal fluid collection. No free air. Vessels: No abdominal aortic aneurysm. Abdominal wall: Small fat-containing periumbilical hernia.. Bones: Multilevel spondylosis. No acute fracture. IMPRESSION: 1. Questionable early acute diverticulitis at the proximal sigmoid colon. 2. Other findings as above. Electronically signed by: Risa Ferrell MD 08/10/2020 3:56 AM SUPERVISOR CLAIMS Due to temporary technical issues with the PACS/Fluency reporting system, reports are being signed by the in house radiologists without review as a courtesy to insure prompt reporting. The interpreting radiologist is fully responsible for the content of the report.
--- NOTE | 2020-08-11 06:09 | EKG ---
Test Date: 2020-08-10 Test Time: 01:23:30 Seed Technician: CORINE MEASUREMENT RESULTS: Intervals: Rate: 67 IL: 140 QRSD: 88 QT: 406 QTc: 429 [place]ama: P: 39 IL: 140 QRS: 2 T: 49 INTERPRETIVE STATEMENTS: Normal sinus rhythm Cannot rule out Anterior infarct, age undetermined Abnormal ECG Compared to ECG 08/08/2020 02:25:17 Sinus bradycardia no longer present Myocardial infarct finding still present Electronically Signed On 08-11-20 06:08:58 PRIMARY CARE MD by Leonardo Mccoy
== END 2020-08-10 04:47 | disposition home or self-care (01) ==
LOC: ER 01:12
DX: K57.32 Diverticulitis of large intestine without perforation or abscess without bleeding (principal); I10 Essential (primary) hypertension; E11.9 Type 2 diabetes mellitus without complications
CPT/HCPCS: 93005; 85025; 80048; 36415; 80076; 83690; 74177; Q9967; J1170; J0696; J7030; J2405; 96361; 96365; 96375; 99285

== ENCOUNTER 2020-08-11 18:16 | Emergency (ER) | payer BC ==
--- OUTSIDE RECORDS SUMMARY | 2020-08-11 18:19 | XMS REPORT | Continuity of Care Document ---
:1975 Author Organization [facility] t Address [address] [place] [address] Care Team Providers Name Role Phone DR SADIQ Attending Clinician Unavailable Summer RN Attending Clinician Unavailable Pob1, [facility] Attending Clinician Unavailable DR SADIQ [...] Department ID 2020-07-30 2020-07-30 Outpatient Johanny BABCOCK [facility] [id number] 04:00:00 06:30:00 [facility] 2020-01-17 2020-01-17 Telephone DARRION Wheeler [id number] 00:00:00 00:00:00 Vanda BECK [id number] [facility] [id number] 2020-01-16 2020-01-16 Urgent Pob1, Acute [facility] [id number] 15:27:32 15:47:32 [facility] [id number] [place] [id number] [phone] [address] Results Test Description Test Time Test Comments Results Result Comments Source GLUCOMETER GLUCOSE- LAB USE ONLY 2020-07-30 07:30:00 Test Item Value Reference Range Interpretation Comme nts GLUCOMETER (test code = GMG) 167 mg/dL 70-100 H Meter ID: [id number]: [id number] BACILIO KRISHNAN GLUCOMETER GLUCOSE- LAB USE [id number] 07:30:00 Test Item Value Reference Range Interpretation Comments GLUCOMETER (test code = 178 mg/dL 70-100 H Mete r ID: [id number]) [id number] tor: [id number] BECKI SID URINE MONOCLONALFB2020-07-30 04:32:00 Test Item Value Reference Range Interpretation Comments PREG UR (test code = PGU) NEGATIVE NEGATIVE
[2020-08-11] MEDS ORDERED: MAGNES/ALUMIN/SIMET 30ML UCUP ONE (20:32)
[2020-08-11] MEDS ORDERED: LIDOCAINE VISCOUS 2% SOLN 15 ML UDC ONE (20:32)
[2020-08-11] MEDS ORDERED: FAMOTIDINE 20 MG/2 ML VIAL IV ONE (20:32)
[2020-08-11 20:49] LABS: Absolute Lymphocytes (CBC) 3.3 K/uL (0.7-4.9); Basophils % 1.1 % (0-1.3); Hematocrit 37.7 % (36.0-45.0); Lymphocytes % 34.4 % (15.3-44.8); RBC Red Blood Cell Count 4.36 M/uL (3.86-4.86)
[2020-08-11 21:03] LABS: ALT/SGPT 57 U/L (12-78); AST/SGOT 46 U/L (15-37); Albumin 3.6 g/dL (3.4-5.0); Alkaline Phosphatase 111 U/L (45-117); BUN Blood Urea Nitrogen 10 mg/dL (7-18); Bicarbonate 30 mmol/L (21-32); Bilirubin Direct < 0.1 mg/dL (0-0.2); Bilirubin Total 0.3 mg/dL (0.2-1.0); Glucose Level 117 mg/dL (74-106); Lipase 117 U/L (73-393); Potassium 3.5 mmol/L (3.5-5.1); Protein, Total 8.7 g/dL (6.4-8.2); Sodium Level 137 mmol/L (136-145)
--- NOTE | 2020-08-11 22:14 | ER ---
Nurse's Notes [facility] Name: Alesia De Souza Age: 45 yrs Sex: Female : 1975 Arrival Date: 08/11/2020 Time: 18:17 Bed 8 Private MD: Wenceslao Garland R Diagnosis: Diverticulitis Presentation: 08/11 18:20 Chief complaint: Patient states: Chest pain started Sunday afternoon. Was here Sunday ca1 at 0200 in the morning, they gave me Pepcid, Zofran, Morphine. Then I went home, was fine Sunday. At Sunday at 0100, chest pain came back here in the ER. and they gave me the same medication. This pain started at 1100 this morning, same type of pain. It's like pressure and martinez in the middle of my chest and goes to the back and feels like something is choking me and hard to breathe. Denies fever, reports sweaty and clammy with the pain this morning. Reports occasional cough with the chest pain. Coronavirus screen: Client denies travel out of the [place] in the last 14 days. At this time, the client does not indicate any symptoms associated with coronavirus-19. Ebola Screen: Patient negative for fever greater than or equal to 101.5 degrees Fahrenheit, and additional compatible Ebola Virus Disease symptoms Patient denies exposure to infectious person. Patient denies travel to an Ebola-affected area in the 21 days before illness onset. No symptoms or risks identified at this time. Initial Sepsis Screen: Does the patient meet any 2 criteria? No. Patient's initial sepsis screen is negative. Does the patient have a suspected source of infection? No. Patient's initial sepsis screen is negative. Risk Assessment: Do you want to hurt yourself or someone else? Patient reports no desire to harm self or others. Onset of symptoms was August 11, 2020. 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 - Social history:: Smoking status: Patient reports the use of cigarette tobacco products, denies chronic smoking, but will smoke occasionally. Screenin:45 Abuse screen: Denies threats or abuse. Denies injuries from another. Nutritional rv screening: No deficits noted. Tuberculosis screening: No symptoms or risk factors identified. Fall Risk None identified. Assessment: 20:00 General: Appears comfortable, Behavior is calm, cooperative. rv 20:00 Pain: Complains of pain in back and chest Pain does not radiate. Pain Pain began 2-3 rv days ago. Neuro: Level of Consciousness is awake, alert, obeys commands, Oriented to person, place, time, situation. Cardiovascular: Patient's skin is warm and dry. Rhythm is regular. Respiratory: Airway is patent Respiratory effort is even, unlabored, Breath sounds are clear bilaterally. GI: Reports diarrhea. Derm: Skin is intact. 22:21 Reassessment: Patient and/or family updated on plan of care and expected duration. Pain ea level reassessed. Patient is alert, oriented x 3, equal unlabored respirations, skin warm/dry/pink. Discharge instruction given to patient, verbalized the understanding of instruction. Pt left ED ambulatory accompanied by family. Pt tolerating well. Patient states feeling better. Vital Signs: 18:20 BP 147 / 90; Pulse 73; Resp 18 S; Temp 97.9(TE); Pulse Ox 99% on R/A; Weight 94.8 kg ca1 (R); Height 5 ft. 0 in. (152.40 cm); Pain 6/10; 20:46 BP 126 / 67; Pulse 76; Resp 16; Pulse Ox 97% on R/A; rv 22:21 BP 126 / 76; Pulse 76; Resp 18; Pulse Ox 98% ; ea 18:20 Body Mass Index 40.82 (94.80 kg, 152.40 cm) ca1 ED Course: 18:17 Patient arrived in ED. ag5 18:18 Wenceslao Garland MD is Private Physician. ag5 18:25 Triage completed. ca1 18:26 Arm band placed on right wrist. ca1 18:42 EKG completed in triage. Results shown to MD. ca1 19:22 Mack Abdi, RN is Primary Nurse. rv 19:23 Arden Adrian MD is Attending Physician. mh7 20:10 Initial lab(s) drawn, by me, sent to lab. Inserted saline lock: 20 gauge in right rv forearm, using aseptic technique. Blood collected. 20:39 Chest Single View XRAY In Process Unspecified. EDMS 20:45 Patient has correct armband on for positive identification. Placed in gown. Bed in low rv position. Call light in reach. Side rails up X 1. quality assurance monitor on. Pulse ox on. NIBP on. 20:45 Patient maintains SpO2 saturation greater than 95% on room air. rv 22:12 Peyman Mendez MD is Referral Physician. 7 22:20 IV discontinued, intact, bleeding controlled, No redness/swelling at site. Pressure ea dressing applied. 22:20 No provider procedures requiring assistance completed. ea Administered Medications: 20:25 Drug: GI Cocktail without - (Maalox Suspension 30 ml, Lidocaine Liquid 2 % 15 ea ml) Route: PO; 21:21 Follow up: Response: No adverse reaction ea 20:25 Drug: Pepcid 20 mg Route: IVP; Site: right antecubital; ea 21:21 Follow up: Response: No adverse reaction ea Outcome: 22:12 Discharge ordered by . 7 22:21 Discharged to home ambulatory, with family. ea 22:21 Condition: stable 22:21 Discharge instructions given to patient, Instructed on discharge instructions, follow up and referral plans. medication usage, Demonstrated understanding of instructions, follow-up care, medications, Prescriptions given X 2. 22:22 Patient left the ED. rv Signatures: Dispatcher [employer] EDDE Deedee Ledesma RN RN ea Vicente, Ronaldo, SYMONE ASHBY rv Bria Villa RN RN ca1 Gaskin, Ajare ag5 Arden Adrian MD MD [facility]
--- NOTE | 2020-08-11 22:14 | EDPHYS ---
Physician Documentation [facility] Name: Alesia De Souza Age: 45 yrs Sex: Female : 1975 Arrival Date: 08/11/2020 Time: 18:17 Bed 8 Private MD: Wenceslao Garland R ED Physician Arden Adrian HPI: 08/11 20:12 This 45 yrs old Female presents to ER via Ambulatory with complaints of Chest mh7 Pain, Back Pain, Breathing Difficulty. 20:14 The patient presents with abdominal pain in the epigastric area. Onset: The mh7 symptoms/episode began/occurred 3 day(s) ago. 20:15 The symptoms radiate to back. mh7 20:15 Associated signs and symptoms: Pertinent positives: constipation, Pertinent negatives: mh7 nausea and vomiting, anorexia, blood in stools, chest pain, diarrhea, dysuria, fever, headache, hematuria, nausea, palpitations, shortness of breath, vaginal discharge, vomiting, vomiting blood. The symptoms are described as burning, intermittent, waxing/waning. Modifying factors: The symptoms are alleviated by nothing, the symptoms are aggravated by nothing. Severity of pain: At its worst the pain was moderate today, in the emergency department the pain has improved markedly. The patient has experienced similar episodes in the past, several times. The patient has been recently seen at the [facility] Emergency Department, this week. 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 - Social history:: Smoking status: Patient reports the use of cigarette tobacco products, denies chronic smoking, but will smoke occasionally. ROS: 20:15 Constitutional: Negative for fever, chills, and weight loss, Eyes: Negative for injury, mh7 pain, redness, and discharge, ENT: Negative for injury, pain, and discharge, Neck: Negative for injury, pain, and swelling, Cardiovascular: Negative for chest pain, palpitations, and edema, Respiratory: Negative for shortness of breath, cough, wheezing, and pleuritic chest pain, : Negative for injury, bleeding, discharge, and swelling, MS/Extremity: Negative for injury and deformity, Skin: Negative for injury, rash, and discoloration, Neuro: Negative for headache, weakness, numbness, tingling, and seizure, Psych: Negative for depression, anxiety, suicide ideation, homicidal ideation, and hallucinations, Allergy/Immunology: Negative for hives, rash, and allergies, Endocrine: Negative for neck swelling, polydipsia, polyuria, polyphagia, and marked weight changes, Hematologic/Lymphatic: Negative for swollen nodes, abnormal bleeding, and unusual bruising. Exam: 18:50 ECG was reviewed by the Attending Physician. kdr 20:15 Constitutional: This is a well developed, well nourished patient who is awake, alert, mh7 and in no acute distress. Head/Face: Normocephalic, atraumatic. Eyes: Pupils equal round and reactive to light, extra-ocular motions intact. Lids and lashes normal. Conjunctiva and sclera are non-icteric and not injected. Cornea within normal limits. Periorbital areas with no swelling, redness, or edema. Neck: Trachea midline, no thyromegaly or masses palpated, and no cervical lymphadenopathy. Supple, full range of motion without nuchal rigidity, or vertebral point tenderness. No Meningismus. Chest/axilla: Normal chest wall appearance and motion. Nontender with no deformity. No lesions are appreciated. Cardiovascular: Regular rate and rhythm with a normal S1 and S2. No gallops, murmurs, or rubs. Normal PMI, no JVD. No pulse deficits. Respiratory: Lungs have equal breath sounds bilaterally, clear to auscultation and percussion. No rales, rhonchi or wheezes noted. No increased work of breathing, no retractions or nasal flaring. 20:15 Back: No spinal tenderness. No costovertebral tenderness. Full range of motion. Skin: Warm, dry with normal turgor. Normal color with no rashes, no lesions, and no evidence of cellulitis. MS/ Extremity: Pulses equal, no cyanosis. Neurovascular intact. Full, normal range of motion. Neuro: Awake and alert, GCS 15, oriented to person, place, time, and situation. Cranial nerves II-XII grossly intact. Motor strength 5/5 in all extremities. Sensory grossly intact. Cerebellar exam normal. Normal gait. Psych: Awake, alert, with orientation to person, place and time. Behavior, mood, and affect are within normal limits. 20:15 Abdomen/GI: Inspection: obese Bowel sounds: normal, in all quadrants, Palpation: mild abdominal tenderness, in the epigastric area, Rectal exam: the exam is deferred, because of patient request, Indicators: McBurney's point is not tender, Suresh's sign is negative, Rovsing's sign is negative, Obturator sign is negative, Psoas sign is negative, Liver: no appreciated palpable abnormalities, Hernia: not appreciated. Vital Signs: 18:20 BP 147 / 90; Pulse 73; Resp 18 S; Temp 97.9(TE); Pulse Ox 99% on R/A; Weight 94.8 kg ca1 (R); Height 5 ft. 0 in. (152.40 cm); Pain 6/10; 20:46 BP 126 / 67; Pulse 76; Resp 16; Pulse Ox 97% on R/A; rv 22:21 BP 126 / 76; Pulse 76; Resp 18; Pulse Ox 98% ; ea 18:20 Body Mass Index 40.82 (94.80 kg, 152.40 cm) ca1 MDM: 22:10 Differential diagnosis: bowel obstruction, cholecystitis, Cholelithiasis, mh7 diverticulitis, gastritis, gastroesophageal reflux disease, non-specific abd pain, pancreatitis, Pyelonephritis, Ureterolithiasis, urinary tract infection. Data reviewed: vital signs, nurses notes, old medical records, lab test result(s), cardiac enzymes, CBC, electrolytes, urinalysis, EKG, radiologic studies, plain films. Data interpreted: Pulse oximetry: on room air is 97 %. Interpretation: normal. Counseling: I had a detailed discussion with the patient and/or guardian regarding: the historical points, exam findings, and any diagnostic results supporting the discharge/admit diagnosis, lab results, radiology results, the need for outpatient follow up, to return to the emergency department if symptoms worsen or persist or if there are any questions or concerns that arise at home. Response to treatment: the patient's symptoms have resolved after treatment, the patient's blood pressure is in an acceptable range, mental status has returned to baseline, the patient no longer shows bradycardia, the patient is not short of breath, the patient is not tachycardic, the patient's pain is gone, the patient's temperature has normalized, the patient's condition has returned to base line, the patient is now symptom free, patient is well hydrated. 22:12 Patient medically screened. [facility] 08/11 19:53 Order name: Basic Metabolic Panel; Complete Time: 21:16 [facility] 08/11 19:53 Order name: CBC with Diff; Complete Time: 20:53 [facility] 08/11 19:53 Order name: Hepatic Function; Complete Time: 21:16 [facility] 08/11 19:53 Order name: Lipase; Complete Time: 21:16 [facility] 08/11 22:06 Order name: Urine --Ancillary (enter results) [facility] 08/11 22:06 Order name: Urine Dipstick--Ancillary (enter results) [facility] 08/11 18:36 Order name: EKG; Complete Time: 18:37 [facility] 08/11 18:36 Order name: EKG - Nurse/Tech; Complete Time: 18:36 [facility] 08/11 19:53 Order name: IV Saline Lock; Complete Time: 20:09 [facility] 08/11 19:53 Order name: Labs collected and sent; Complete Time: 20:10 [facility] 08/11 19:53 Order name: Urine Dipstick-Ancillary (obtain specimen); Complete Time: 20:09 [facility] 08/11 20:13 Order name: Chest Single View XRAY [facility] EC:50 Rate is 70 beats/min. Rhythm is regular, Sinus Rhythm with No ectopy. QRS [place] is kdr Normal. [place] interval is normal. QRS interval is normal. QT interval is normal. No Q waves. Clinical impression: Normal ECG. Administered Medications: 20:25 Drug: GI Cocktail without - (Maalox Suspension 30 ml, Lidocaine Liquid 2 % 15 ea ml) Route: PO; 21:21 Follow up: Response: No adverse reaction ea 20:25 Drug: Pepcid 20 mg Route: IVP; Site: right antecubital; ea 21:21 Follow up: Response: No adverse reaction ea Disposition: 08/11/20 22:12 Discharged to Home. Impression: Diverticulitis. - Condition is Stable. - Discharge Instructions: Diverticulitis, [id number]. - Prescriptions for Flagyl 500 mg Oral Tablet - take 1 tablet by ORAL route every 8 hours for 10 days; 30 tablet. Cipro 500 mg Oral Tablet - take 1 tablet by ORAL route every 12 hours for 10 days; 20 tablet. - Medication Reconciliation Form, Thank You Letter, Antibiotic Education, Prescription Opioid Use form. - Follow up: Private Physician; When: 1 - 2 days; Reason: Worsening of condition, Recheck today's complaints, Continuance of care, Re-evaluation by your physician. Follow up: Peyman Mendez MD; When: 1 - 2 days; Reason: Worsening of condition, Recheck today's complaints. - Problem is an ongoing problem. - Symptoms have improved. Signatures: Dispatcher [employer] EDMS Vikas Suazo MD MD [facility] Deedee Ledesma RN RN ea Vicente, Ronaldo, RN RN rv Acob, Cheryl, RN RN ca1 Holmes, Maurice, MD MD mh7 Corrections: (The following items were deleted from the chart) 22:22 22:12 08/11/2020 22:12 Discharged to Home. Impression: Diverticulitis. Condition is rv Stable. Forms are Medication Reconciliation Form, Thank You Letter, Antibiotic Education, Prescription Opioid Use. Follow up: Private Physician; When: 1 - 2 days; Reason: Worsening of condition, Recheck today's complaints, Continuance of care, Re-evaluation by your physician. Follow up: Peyman Menedz; When: 1 - 2 days; Reason: Worsening of condition, Recheck today's complaints. Problem is an ongoing problem. Symptoms have improved. mh7
[2020-08-11 23:21] LABS: Urine Blood NEGATIVE (NEG); Urine Glucose NEGATIVE (NEG); Urine Protein NEGATIVE (NEG)
--- NOTE | 2020-08-12 06:08 | EKG ---
Test Date: 2020-08-11 Test Time: 18:38:13 Janitor And Cleaner: OSIRIS MEASUREMENT RESULTS: Intervals: Rate: 70 [place]: 136 QRSD: 88 QT: 404 QTc: 436 [place]: P: 32 [place]: 136 QRS: 42 T: 30 INTERPRETIVE STATEMENTS: Normal sinus rhythm Normal ECG Compared to ECG 08/10/2020 01:23:30 Myocardial infarct finding no longer present Electronically Signed On 08-12-20 06:07:17 MINIATURE SET BUILDER by Leonardo Mccoy
--- NOTE | 2020-08-12 07:16 | RAD REPORT ---
EXAM DESCRIPTION: RAD - Chest Single View - 08/11/2020 8:42 pm CLINICAL HISTORY: hypertensive, chest pain, cough COMPARISON: May 2008 portable chest, August 08, 2020 CT chest TECHNIQUE: AP portable chest image was obtained 08/11/2020 8:42 pm . FINDINGS: No focal mass or consolidation. Heart and vasculature are normal. No measurable pleural ef fusion and no pneumothorax. No acute bony abnormality seen. No acute aortic findings suspected. IMPRESSION: No acute cardiopulmonary process.
== END 2020-08-11 22:22 | disposition home or self-care (01) ==
LOC: ER 18:16
DX: K57.92 Diverticulitis of intestine, part unspecified, without perforation or abscess without bleeding (principal); I10 Essential (primary) hypertension; E11.9 Type 2 diabetes mellitus without complications; F17.210 Nicotine dependence, cigarettes, uncomplicated
CPT/HCPCS: 36415; 71045; 80048; 80076; 81003; 81025; 83690; 85025; 93005; 96374; 99285

== ENCOUNTER 2021-02-07 14:08 | Emergency (ER) | payer BC ==
--- OUTSIDE RECORDS SUMMARY | 2021-02-07 14:10 | XMS REPORT | Continuity of Care Document ---
:1975 [facility] t Address [address] [place] [address] Care Team Providers Name Role Phone DR SADIQ Attending Clinician Unavailable Summer RN Attending Clinician Unavailable Pob1, Care [facility] Attending Clinician Unavailable DR SADIQ Admitting [...] Department ID 2020-07-30 2020-07-30 Outpatient Johanny BABCOCK Johanny [facility] [id number] 04:00:00 06:30:00 [facility] 2020-01-17 2020-01-17 Telephone DARRION Wheeler [id number] 00:00:00 00:00:00 Vanda BECK [id number] [facility] [id number] [id number] 2020-01-16 2020-01-16 Urgent Pob1, Acute [facility] [id number] 15:27:32 15:47:32 [facility] [id number] [place] [id number] [facility] [phone] [address] [address] Results Test Description Test Time Test Comments Results Result Comments Source GLUCOMETER GLUCOSE- LAB USE ONLY 2020-07-30 07:30:00 Test Item Value Reference Range Interpretation Comme nts GLUCOMETER (test code = GMG) 167 mg/dL 70-100 H Meter ID: [id number]: [id number] BACILIO KRISHNAN GLUCOMETER GLUCOSE- LAB USE [id number] 07:30:00 Test Item Value Reference Range Interpretation Comments GLUCOMETER (test code = 178 mg/dL 70-100 H Mete r ID: GMG) [id number] tor: [id number] BECKI SID URINE MONOCLONALFB2020-07-30 04:32:00 Test Item Value Reference Range Interpretation Comments PREG UR (test code = PGU) NEGATIVE NEGATIVE
--- NOTE | 2021-02-07 15:18 | RAD REPORT ---
EXAM DESCRIPTION: RAD - Chest Pa And Lat (2 Views) - 02/07/2021 2:47 pm CLINICAL HISTORY: chest burning, cough COMPARISON: Portable August 2020 TECHNIQUE: Frontal and lateral views of the chest were obtained. FINDINGS: The lungs are clear of a peripheral mass or consolidation. No findings considered suspicio us for bacterial pneumonia. Perihilar interstitial markings are increased compared to the prior study. This is more pronounced in the left infrahilar region. Mild peribronchial thickening changes are seen. Trachea is midline. Hea rt size is normal and central vasculature is within normal limits. No pleural effusion or pneumothor ax seen. No acute bony finding noted. No aortic abnormality. IMPRESSION: Mild viral infiltrate pattern is seen. No focal consolidation to suspect bacterial pneumonia.
[2021-02-07] MEDS ORDERED: IBUPROFEN 200 MG TAB PO ONE (17:16)
[2021-02-07] MEDS ORDERED: HYDROCODONE/CHLORPHEN 5 ML/OSYR ONE (17:16)
[2021-02-07 18:26] LABS: SARS-COV-2 RT PCR NEGATIVE (NEGATIVE)
--- NOTE | 2021-02-07 19:27 | ER ---
Nurse's Notes [facility] Name: Alesia De Souza Age: 45 yrs Sex: Female : 1975 Arrival Date: 02/07/2021 Time: 14:12 Bed 15 Private MD: Diagnosis: Bronchitis, not specified as acute or chronic Presentation: 02/07 14:17 Chief complaint: Patient states: Cough, feels hot, tired, fatigue since Sunday night. ll1 Chest started burning with deep breathing yesterday. No N/V/D. No appetite. Coronavirus screen: Client denies travel out of the [place] in the last 14 days. chills, congestion, cough unrelated to allergies, difficulty breathing, fatigue, fever, headache, muscle pain, runny nose, shaking with chills, shortness of breath, Client presents with at least one sign or symptom that may indicate coronavirus-19. Standard/surgical mask placed on the client. Ebola Screen: Patient denies travel to an Ebola-affected area in the 21 days before illness onset. Initial Sepsis Screen: Does the patient meet any 2 criteria? HR > 90 bpm. No. Patient's initial sepsis screen is negative. Does the patient have a suspected source of infection? Yes: Productive cough/pneumonia. Risk Assessment: Do you want to hurt yourself or someone else? Patient reports no desire to harm self or others. Onset of symptoms was February 05, 2021. 14:17 Method Of Arrival: Ambulatory ll1 14:17 Acuity: EILEEN 3 ll1 MEDICAL LEADER: 19:46 LMP N/A - Post-menopause jm8 Historical: - Allergies: 14:20 No Known Allergies; ll1 - PMHx: 14:13 Diabetes - NIDDM; Hypertension; ll1 - PSHx: 14:13 ; Cholecystectomy; ll1 14:20 Tubal ligation; ll1 - Immunization history:: Client reports receiving the 2nd dose of the Covid vaccine, Flu vaccine is not up to date. - Social history:: Smoking status: Patient reports the use of cigarette tobacco products, denies chronic smoking, but will smoke occasionally. Screenin:04 Abuse screen: Denies threats or abuse. Nutritional screening: No deficits noted. vg1 Tuberculosis screening: No symptoms or risk factors identified. Fall Risk No fall in past 12 months (0 pts). No secondary diagnosis (0 pts). No IV (0 pts). Ambulatory Aid- None/Bed Rest/Nurse Assist (0 pts). Gait- Normal/Bed Rest/Wheelchair (0 pts) Mental Status- Oriented to own ability (0 pts). Total Johnson Fall Scale indicates No Risk (0-24 pts). Assessment: 14:21 Reassessment: Received VO from Dr Cannon for CXR. sv 17:02 General: Appears in no apparent distress. comfortable, Behavior is calm, cooperative. vg1 Pain: Complains of pain in head and body Pain currently is 6 out of 10 on a pain scale. Pain began 2-3 days ago. Neuro: Level of Consciousness is awake, alert, obeys commands, Oriented to person, place, time, situation. Cardiovascular: Patient's skin is warm and dry. Respiratory: Airway is patent Respiratory effort is even, unlabored. GI: Patient currently denies diarrhea, nausea, vomiting. : No signs and/or symptoms were reported regarding the genitourinary system. EENT: No signs and/or symptoms were reported regarding the EENT system. Derm: Skin is intact, is healthy with good turgor. Musculoskeletal: Circulation, motion, and sensation intact. 18:00 Reassessment: Patient appears in no apparent distress at this time. No changes from vg1 previously documented assessment. Patient and/or family updated on plan of care and expected duration. Pain level reassessed. Patient is alert, oriented x 3, equal unlabored respirations, skin warm/dry/pink. Vital Signs: 14:17 BP 156 / 87; Pulse 92; Resp 20; Temp 98.1; Pulse Ox 96% ; Weight 92.99 kg; Height 5 ft. ll1 0 in. (152.40 cm); Pain 7/10; 17:04 BP 139 / 69; Pulse 92; Resp 20; Pulse Ox 97% on R/A; vg1 18:01 BP 129 / 60; Pulse 93; Resp 14; Pulse Ox 97% ; vg1 19:46 BP 145 / 63; Pulse 84; Resp 16; Pulse Ox 97% on R/A; jm8 14:17 Body Mass Index 40.04 (92.99 kg, 152.40 cm) ll1 ED Course: 14:12 Patient arrived in ED. bp1 14:13 Arm band placed on. ll1 14:19 Triage completed. ll1 14:46 Chest Pa And Lat (2 Views) XRAY In Process Unspecified. EDMS 16:10 Patient placed in an exam room, on a stretcher. ll1 16:15 Hitesh Suggs NP is PHCP. pm1 16:15 Av Cannon MD is Attending Physician. pm1 16:38 Fang Amaro, RN is Primary Nurse. vg1 17:04 Patient has correct armband on for positive identification. Bed in low position. Call 1 light in reach. Side rails up X 1. 18:23 Flu Sent. sv 18:23 COVID-19 : Document "Date of Symptom Onset" if Symptomatic. Sent. sv 19:46 No provider procedures requiring assistance completed. Patient did not have IV access jm8 during this emergency room visit. Administered Medications: 17:01 Drug: Tussionex Pennkinetic ER (chlorpheniramine-hydrocodone) 5 ml Route: PO; vg1 19:46 Follow up: Response: No adverse reaction jm8 17:02 Drug: Ibuprofen 600 mg Route: PO; vg1 19:45 Follow up: Response: No adverse reaction 8 Outcome: 19:27 Discharge ordered by MD. pm1 19:47 Discharged to home ambulatory, with family. jm8 19:47 Condition: good 19:47 Discharge instructions given to patient, family, Instructed on discharge instructions, follow up and referral plans. medication usage, Demonstrated understanding of instructions, follow-up care, medications. 19:47 Patient left the ED. jm8 Signatures: Dispatcher [employer] EDVT Mai Guajardo RN RN Hitesh Suggs NP EMERGENCY ROOM SPECIALIST pm1 Fang Amaro, SYMONE ASHBY 1 Radha Nunn RN RN 1 Marilu Cox Joseph RN RN jm8
--- NOTE | 2021-02-07 19:27 | EDPHYS ---
Physician Documentation [facility] Name: Alesia De Souza Age: 45 yrs Sex: Female : 1975 Arrival Date: 02/07/2021 Time: 14:12 Bed 15 Private MD: ED Physician Av Cannon HPI: 02/07 16:23 This 45 yrs old Female presents to ER via Ambulatory with complaints of Chest pm1 Burn, Fever, Cough. 16:23 The patient or guardian reports cough, with no sputum. Onset: The symptoms/episode pm1 began/occurred 2 day(s) ago. Severity of symptoms: in the emergency department the symptoms are actually worse. Modifying factors: The symptoms are alleviated by nothing, the symptoms are aggravated by nothing. Associated signs and symptoms: Pertinent positives: chest pain, fever, Pertinent negatives: shortness of breath. The patient has not recently seen a physician. multiple family members in her house have similar symptoms. They all tested negative for covid and flu. 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 - Social history:: Smoking status: Patient reports the use of cigarette tobacco products, denies chronic smoking, but will smoke occasionally. ROS: 16:23 Eyes: Negative for injury, pain, redness, and discharge, ENT: Negative for injury, pm1 pain, and discharge, Neck: Negative for injury, pain, and swelling. 16:23 Abdomen/GI: Negative for abdominal pain, nausea, vomiting, diarrhea, and constipation, Back: Negative for injury and pain, MS/Extremity: Negative for injury and deformity, Skin: Negative for injury, rash, and discoloration, Neuro: Negative for headache, weakness, numbness, tingling, and seizure. 16:23 Constitutional: Positive for body aches, fever, Negative for poor PO intake. 16:23 Cardiovascular: Positive for chest pain, with cough. 16:23 Respiratory: Positive for cough, Negative for shortness of breath, sputum production, wheezing. Exam: 16:23 Constitutional: This is a well developed, well nourished patient who is awake, alert, pm1 and in no acute distress. Head/Face: Normocephalic, atraumatic. 16:23 Back: No spinal tenderness. No costovertebral tenderness. Full range of motion. Skin: Warm, dry with normal turgor. Normal color with no rashes, no lesions, and no evidence of cellulitis. MS/ Extremity: Pulses equal, no cyanosis. Neurovascular intact. Full, normal range of motion. 16:23 Eyes: Exam is negative for acute changes, Extraocular movements: no acute changes, Conjunctiva: normal. 16:23 ENT: Exam is negative for External ear(s): are unremarkable, Ear canal(s): are normal, TM's: are normal, Mouth: Lips: normal, Oral mucosa: normal, pink and intact, moist. 16:23 Cardiovascular: Rate: normal, Rhythm: regular, Pulses: no pulse deficits are appreciated, Edema: is not appreciated. 16:23 Respiratory: Exam negative for acute changes, respiratory distress, shortness of breath, Breath sounds: are clear throughout. 16:23 Neuro: Exam negative for acute changes, Orientation: is normal, Mentation: is normal, Motor: is normal, moves all fours. Vital Signs: 14:17 BP 156 / 87; Pulse 92; Resp 20; Temp 98.1; Pulse Ox 96% ; Weight 92.99 kg; Height 5 ft. ll1 0 in. (152.40 cm); Pain 7/10; 17:04 BP 139 / 69; Pulse 92; Resp 20; Pulse Ox 97% on R/A; vg1 18:01 BP 129 / 60; Pulse 93; Resp 14; Pulse Ox 97% ; vg1 19:46 BP 145 / 63; Pulse 84; Resp 16; Pulse Ox 97% on R/A; jm8 14:17 Body Mass Index 40.04 (92.99 kg, 152.40 cm) ll1 MDM: 16:24 Patient medically screened. pm1 19:25 Data reviewed: vital signs. Data interpreted: Pulse oximetry: on room air is 97 %. pm1 Interpretation: normal. Counseling: I had a detailed discussion with the patient and/or guardian regarding: the historical points, exam findings, and any diagnostic results supporting the discharge/admit diagnosis, lab results, radiology results, the need for outpatient follow up, to return to the emergency department if symptoms worsen or persist or if there are any questions or concerns that arise at home. 19:29 ED course: [employer] aware reviewed. Last narcotic prescription 08/2020. pm1 02/07 16:23 Order name: COVID-19 : Document "Date of Symptom Onset" if Symptomatic. pm1 02/07 16:23 Order name: Flu pm1 02/07 16:23 Order name: Strep; Complete Time: 18:00 pm1 02/07 17:59 Order name: Throat Culture EDMS 02/07 14:21 Order name: Chest Pa And Lat (2 Views) XRAY; Complete Time: 16:15 sv 02/07 18:26 Order name: COVID-19/FLU A+B; Complete Time: 18:34 EDMS Administered Medications: 17:01 Drug: Tussionex Pennkinetic ER (chlorpheniramine-hydrocodone) 5 ml Route: PO; vg1 19:46 Follow up: Response: No adverse reaction [facility] 17:02 Drug: Ibuprofen 600 mg Route: PO; vg1 19:45 Follow up: Response: No adverse reaction jm8 Disposition: 02/08 19:09 Co-signature as Attending Physician, Av Cannon MD. rn Disposition: 02/07/21 19:27 Discharged to Home. Impression: Bronchitis, not specified as acute or chronic. - Condition is Stable. - Discharge Instructions: Acute Bronchitis, Adult, How to Use an Inhaler. - Prescriptions for Medrol (Tim) 4 mg Oral Tablets, Dose Pack - take 1 tablet by ORAL route as directed - follow package instructions; 1 packet. Albuterol Sulfate 90 mcg/actuation - inhale 1-2 puff by INHALATION route every 4-6 hours; 1 Inhaler. Guaifenesin AC 10- 100 mg/5 mL Oral Liquid - take 10 milliliter by ORAL route every 4 hours As needed; 240 milliliter. - Medication Reconciliation Form, Thank You Letter, Antibiotic Education, Prescription Opioid Use, Work release form form. - Follow up: Emergency Department; When: As needed; Reason: Worsening of condition. Follow up: Private Physician; When: 2 - 3 days; Reason: Recheck today's complaints, Continuance of care, Re-evaluation by your physician. - Problem is new. - Symptoms have improved. Signatures: Dispatcher [employer] [facility] Av Cannon MD MD rn Hitesh Suggs, GLOBAL ANALYTICS HEAD GLOBAL ANALYTICS HEAD pm1 Fang Amaro RN RN vg1 Radha Nunn RN RN ll1 Gary Muhammad RN RN jm8 Corrections: (The following items were deleted from the chart) 02/07 17:32 16:24 CORONAVIRUS ordered. [facility] 17:32 16:24 Influenza Screen (A ordered. [facility] 19:47 19:27 02/07/2021 19:27 Discharged to Home. Impression: Bronchitis, not specified as jm8 acute or chronic. Condition is Stable. Forms are Medication Reconciliation Form, Thank You Letter, Antibiotic Education, Prescription Opioid Use. Follow up: Emergency Department; When: As needed; Reason: Worsening of condition. Follow up: Private Physician; When: 2 - 3 days; Reason: Recheck today's complaints, Continuance of care, Re-evaluation by your physician. Problem is new. Symptoms have improved. pm1
[2021-02-07 20:11] VITALS: TEMP 98.1
[2021-02-07 20:12] VITALS: O2SAT 97
[2021-02-07 20:15] VITALS: BP 145/63
== END 2021-02-07 19:47 | disposition home or self-care (01) ==
LOC: ER 14:08
DX: J40 Bronchitis, not specified as acute or chronic (principal); I10 Essential (primary) hypertension; F17.210 Nicotine dependence, cigarettes, uncomplicated; Z20.822 Contact with and (suspected) exposure to COVID-19
CPT/HCPCS: 87070; 87081; 0240U; 71046; 99284

== ENCOUNTER 2021-02-21 20:06 | Emergency (ER) | payer BC ==
[2021-02-21 20:45] LABS: Absolute Lymphocytes (CBC) 2.9 K/uL (0.7-4.9); Basophils % 0.9 % (0-1.3); Hematocrit 33.4 % (36.0-45.0); Lymphocytes % 32.2 % (15.3-44.8); MPV 9.3 fL (7.6-11.3); RBC Red Blood Cell Count 3.86 M/uL (3.86-4.86)
[2021-02-21 20:58] LABS: Protime INR 0.94
[2021-02-21 21:10] LABS: ALT/SGPT 37 U/L (12-78); AST/SGOT 20 U/L (15-37); Albumin 2.9 g/dL (3.4-5.0); Alkaline Phosphatase 144 U/L (45-117); BUN Blood Urea Nitrogen 12 mg/dL (7-18); Bicarbonate 26 mmol/L (21-32); Bilirubin Direct < 0.1 mg/dL (0-0.2); Bilirubin Total 0.1 mg/dL (0.2-1.0); Glucose Level 286 mg/dL (74-106); NT PRO-BNP 32 pg/mL (<125); Potassium 3.6 mmol/L (3.5-5.1); Protein, Total 7.1 g/dL (6.4-8.2); Sodium Level 138 mmol/L (136-145); Troponin (Emerg Dept Use Only) < 0.02 ng/mL (0.0-0.045)
--- NOTE | 2021-02-21 21:12 | RAD REPORT ---
EXAM DESCRIPTION: RAD - Chest Single View - 02/21/2021 8:42 pm CLINICAL HISTORY: CHEST PAIN COMPARISON: Two view chest February 07 TECHNIQUE: AP portable chest image was obtained 02/21/2021 8:42 pm . FINDINGS: Lungs are clear. Heart and vasculature are normal. No measurable pleural effusion and no p neumothorax. No acute bony abnormality seen. No acute aortic findings suspected. IMPRESSION: No acute cardiopulmonary process.
--- NOTE | 2021-02-21 22:45 | EDPHYS ---
Physician Documentation [facility] Name: Alesia De Souza Age: 45 yrs Sex: Female : 1975 Arrival Date: 02/21/2021 Time: 20:11 Bed 19 Private MD: ED Physician Earle Leon HPI: 02/22 07:10 This 45 yrs old Female presents to ER via Ambulatory with complaints of tw4 Palpitations, Chest Pain. 07:10 The patient presents with a history of irregular heart beat. Context: The symptoms tw4 occur at rest. Onset: The symptoms/episode began/occurred today. Duration: The patient or guardian reports multiple episodes, that are intermittent, that wax and wane, the episodes last approximately 10 second(s). Modifying factors: The symptoms are aggravated by nothing. The symptoms are alleviated by nothing. Severity of symptoms: At their worst the symptoms were moderate in the emergency department the symptoms are unchanged. The patient has experienced similar episodes in the past, a few times. 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 - Social history:: Smoking status: Patient reports the use of cigarette tobacco products, denies chronic smoking, but will smoke occasionally. ROS: 02/22 07:10 Constitutional: Negative for fever, chills, and weight loss, Eyes: Negative for injury, tw4 pain, redness, and discharge, Respiratory: Negative for shortness of breath, cough, wheezing, and pleuritic chest pain, Abdomen/GI: Negative for abdominal pain, nausea, vomiting, diarrhea, and constipation. MS/Extremity: Negative for injury and deformity, Skin: Negative for injury, rash, and discoloration, Neuro: Negative for headache, weakness, numbness, tingling, and seizure. Cardiovascular: Positive for chest pain, Negative for edema, orthopnea, palpitations, paroxysmal nocturnal dyspnea. Exam: 07:10 Constitutional: This is a well developed, well nourished patient who is awake, alert, tw4 and in no acute distress. Head/Face: Normocephalic, atraumatic. Chest/axilla: Normal chest wall appearance and motion. Nontender with no deformity. No lesions are appreciated. Cardiovascular: Regular rate and rhythm with a normal S1 and S2. No gallops, murmurs, or rubs. Normal PMI, no JVD. No pulse deficits. Respiratory: Lungs have equal breath sounds bilaterally, clear to auscultation and percussion. No rales, rhonchi or wheezes noted. No increased work of breathing, no retractions or nasal flaring. Abdomen/GI: Soft, non-tender, with normal bowel sounds. No distension or tympany. No guarding or rebound. No evidence of tenderness throughout. Back: No spinal tenderness. No costovertebral tenderness. Full range of motion. Skin: Warm, dry with normal turgor. Normal color with no rashes, no lesions, and no evidence of cellulitis. MS/ Extremity: Pulses equal, no cyanosis. Neurovascular intact. Full, normal range of motion. Neuro: Awake and alert, GCS 15, oriented to person, place, time, and situation. Cranial nerves II-XII grossly intact. Motor strength 5/5 in all extremities. Sensory grossly intact. Cerebellar exam normal. Normal gait. Vital Signs: 02/21 20:17 BP 122 / 70; Pulse 74; Resp 18; Temp 98.2; Pulse Ox 100% ; Weight 90.72 kg; Height 5 vg1 ft. 1 in. (154.94 cm); Pain 0/10; 22:45 BP 120 / 68; Pulse 70; Resp 18; Pulse Ox 98% ; ea 20:17 Body Mass Index 37.79 (90.72 kg, 154.94 cm) vg1 MDM: 20:35 Patient medically screened. tw4 02/22 07:11 Data reviewed: vital signs, nurses notes. Data interpreted: Pulse oximetry: tw4 Interpretation: normal. Counseling: I had a detailed discussion with the patient and/or guardian regarding: the historical points, exam findings, and any diagnostic results supporting the discharge/admit diagnosis. Special discussion: I discussed with the patient/guardian in detail that at this point there is no indication for admission to the hospital. It is understood, however, that if the symptoms persist or worsen the patient needs to return immediately for re-evaluation. 02/21 20:20 Order name: Basic Metabolic Panel 02/21 20:20 Order name: CBC with Diff; Complete Time: 22:39 02/21 22:39 Interpretation: Normal except: HGB 11.6; HCT 33.4. 02/21 20:20 Order name: LFT's 02/21 20:20 Order name: Magnesium; Complete Time: 22:39 02/21 22:39 Interpretation: Within normal limits: MG 2.0. 02/21 20:20 Order name: NT PRO-BNP; Complete Time: 22:39 02/21 22:39 Interpretation: Within normal limits: NT PRO-BNP 32. 02/21 20:20 Order name: PT-INR; Complete Time: 22:39 02/21 20:20 Order name: Troponin (emerg Dept Use Only); Complete Time: 22:39 02/21 22:40 Interpretation: Within normal limits: TROPED < 0.02. 02/21 20:20 Order name: XRAY Chest (1 view); Complete Time: 22:39 02/21 20:20 Order name: EKG; Complete Time: 20:21 02/21 20:20 Order name: Cardiac monitoring; Complete Time: 21:08 02/21 20:20 Order name: EKG - Nurse/Tech; Complete Time: 21:08 02/21 20:20 Order name: IV Saline Lock; Complete Time: 21:08 02/21 20:21 Order name: Basic Metabolic Panel; Complete Time: 22:39 EDMS 02/21 22:39 Interpretation: Normal except: GLUC 286; GFR 75. 02/21 20:21 Order name: Liver (Hepatic) Function; Complete Time: 22:39 EDMS 02/21 22:39 Interpretation: Normal except: ALK 144; BILIT 0.1; ALB 2.9; GLOB 4.2; A/G 0.7. [facility] 02/21 20:20 Order name: Labs collected and sent; Complete Time: 21:08 02/21 20:20 Order name: O2 Per Protocol; Complete Time: 21:08 ea 02/21 20:20 Order name: O2 Sat Monitoring; Complete Time: : ea EC:10 Rhythm is regular. QRS [place] is Normal. CT interval is normal. QRS interval is normal. tw4 QT interval is normal. No Q waves. T waves are Normal. No ST changes noted. Clinical impression: Normal ECG. Interpreted by me. Reviewed by me. Administered Medications: No medications were administered Disposition: 02/21/21 22:44 Discharged to Home. Impression: Palpitations. - Condition is Stable. - Discharge Instructions: Holter Monitoring, Palpitations. - Medication Reconciliation Form, Thank You Letter, Antibiotic Education, Prescription Opioid Use form. - Follow up: Private Physician; When: Upon discharge from the Emergency Department; Reason: Recheck today's complaints, Continuance of care, Re-evaluation by your physician. Follow up: Leonardo Mccoy MD; When: Upon discharge from the Emergency Department; Reason: Recheck today's complaints, Continuance of care, Re-evaluation by your physician. Follow up: Nasir Germain MD; When: Upon discharge from the Emergency Department; Reason: Recheck today's complaints, Continuance of care, Re-evaluation by your physician. - Problem is new. - Symptoms have improved. Signatures: Dispatcher [employer] EDDeedee Gay, RN RN Earle Gaspar MD MD tw4 Fang Amaro RN RN vg1 Corrections: (The following items were deleted from the chart) 02/21 22:48 22:44 02/21/2021 22:44 Discharged to Home. Impression: Palpitations. Condition is tw4 Stable. Forms are Medication Reconciliation Form, Thank You Letter, Antibiotic Education, Prescription Opioid Use. Follow up: Private Physician; When: Upon discharge from the Emergency Department; Reason: Recheck today's complaints, Continuance of care, Re-evaluation by your physician. Problem is new. Symptoms have improved. tw4 22:52 22:48 02/21/2021 22:44 Discharged to Home. Impression: Palpitations. Condition is ea Stable. Discharge Instructions: Holter Monitoring, Palpitations. Forms are Medication Reconciliation Form, Thank You Letter, Antibiotic Education, Prescription Opioid Use. Follow up: Private Physician; When: Upon discharge from the Emergency Department; Reason: Recheck today's complaints, Continuance of care, Re-evaluation by your physician. Follow up: Leonardo Mccoy; When: Upon discharge from the Emergency Department; Reason: Recheck today's complaints, Continuance of care, Re-evaluation by your physician. Follow up: Nasir Germain; When: Upon discharge from the Emergency Department; Reason: Recheck today's complaints, Continuance of care, Re-evaluation by your physician. Problem is new. Symptoms have improved. tw4
--- NOTE | 2021-02-21 22:45 | ER ---
Nurse's Notes [facility] Name: Alesia De Souza Age: 45 yrs Sex: Female : 1975 Arrival Date: 02/21/2021 Time: 20:11 Bed 19 Private MD: Diagnosis: Palpitations Presentation: 02/21 20:17 Chief complaint: Patient states: "Chest pain began yesterday afternoon, it comes and vg1 goes and I feel my heart fluttering at times too." Pt c/o Shortness of breath on exertion as well. Coronavirus screen: Client denies travel out of the [place] in the last 14 days. Ebola Screen: Patient negative for fever greater than or equal to 101.5 degrees Fahrenheit, and additional compatible Ebola Virus Disease symptoms. Initial Sepsis Screen: Does the patient meet any 2 criteria? No. Patient's initial sepsis screen is negative. Does the patient have a suspected source of infection? No. Patient's initial sepsis screen is negative. Risk Assessment: Do you want to hurt yourself or someone else? Patient reports no desire to harm self or others. Onset of symptoms was February 20, 2021. 20:17 Method Of Arrival: Ambulatory vg1 20:17 Acuity: EILEEN 3 vg1 Triage Assessment: 20:20 General: Appears in no apparent distress. comfortable, Behavior is calm, cooperative. vg1 Pain: Denies pain. Cardiovascular: Patient's skin is warm and dry. 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 - Social history:: Smoking status: Patient reports the use of cigarette tobacco products, denies chronic smoking, but will smoke occasionally. Screenin:06 Abuse screen: Denies threats or abuse. Nutritional screening: No deficits noted. ea Tuberculosis screening: No symptoms or risk factors identified. Fall Risk None identified. Assessment: 20:20 General: Appears in no apparent distress. Behavior is calm, cooperative, appropriate ea for age. Pain: Complains of pain in chest. Neuro: Level of Consciousness is awake, alert, obeys commands, Oriented to person, place, time. Cardiovascular: Patient's skin is warm and dry. Respiratory: Airway is patent Respiratory effort is even, unlabored, Respiratory pattern is regular, symmetrical. Derm: Skin is pink, warm \\T\\ dry. 21:34 Reassessment: Patient and/or family updated on plan of care and expected duration. Pain ea level reassessed. Patient is alert, oriented x 3, equal unlabored respirations, skin warm/dry/pink. 22:22 Reassessment: Patient and/or family updated on plan of care and expected duration. Pain ea level reassessed. Patient is alert, oriented x 3, equal unlabored respirations, skin warm/dry/pink. Vital Signs: 20:17 BP 122 / 70; Pulse 74; Resp 18; Temp 98.2; Pulse Ox 100% ; Weight 90.72 kg; Height 5 vg1 ft. 1 in. (154.94 cm); Pain 0/10; 22:45 BP 120 / 68; Pulse 70; Resp 18; Pulse Ox 98% ; ea 20:17 Body Mass Index 37.79 (90.72 kg, 154.94 cm) vg1 ED Course: 20:11 Patient arrived in ED. cf2 20:15 EKG done, by ED staff. mb4 20:19 Triage completed. vg1 20:19 Deedee Ledesma, RN is Primary Nurse. ea 20:20 Arm band placed on. vg1 20:35 Earle Leon MD is Attending Physician. tw4 20:42 XRAY Chest (1 view) In Process Unspecified. EDMS 21:06 Inserted saline lock: 20 gauge in left antecubital area, using aseptic technique. Blood ea collected. Patient maintains SpO2 saturation greater than 95% on room air. 21:07 Patient has correct armband on for positive identification. Bed in low position. Call ea light in reach. monitor worker on. Pulse ox on. NIBP on. 22:48 Leonardo Mccoy MD is Referral Physician. tw4 22:48 Nasir Germain MD is Referral Physician. tw4 22:51 No provider procedures requiring assistance completed. IV discontinued, intact, john paul bleeding controlled, No redness/swelling at site. Pressure dressing applied. Administered Medications: No medications were administered Outcome: :44 Discharge ordered by . [facility] 22:51 Discharged to home ambulatory, with family. john paul 22:51 Condition: stable 22:51 Discharge instructions given to patient, Instructed on discharge instructions, follow up and referral plans. Demonstrated understanding of instructions, follow-up care. 22:52 Patient left the ED. ea Signatures: Dispatcher [employer] EDDeedee Gay, RN RN Earle Gaspar MD MD tw4 Lissett Contreras mb4 Baljinder Martin 2 Fang Amaro, RN RN vg1
--- NOTE | 2021-02-22 10:27 | EKG ---
Test Date: 2021-02-21 Test Time: 20:16:56 Paraplanner: STACEY MEASUREMENT RESULTS: Intervals: Rate: 72 RI: 142 QRSD: 94 QT: 388 QTc: 424 Reading: P: 33 RI: 142 QRS: 5 T: 30 INTERPRETIVE STATEMENTS: Normal sinus rhythm Possible Inferior infarct, age undetermined Abnormal ECG Compared to ECG 08/11/2020 18:38:13 Myocardial infarct finding now present Electronically Signed On 02-22-21 10:25:40 CDT by Leonardo Mccoy
== END 2021-02-21 22:52 | disposition home or self-care (01) ==
LOC: ER 20:06
DX: R00.2 Palpitations (principal); F17.210 Nicotine dependence, cigarettes, uncomplicated; I10 Essential (primary) hypertension; E11.9 Type 2 diabetes mellitus without complications
CPT/HCPCS: 36415; 71045; 80048; 80076; 83735; 83880; 84484; 85025; 85610; 93005; 99285

== ENCOUNTER 2021-05-25 01:40 | Emergency (ER) | payer BC ==
--- OUTSIDE RECORDS SUMMARY | 2021-05-25 01:43 | XMS REPORT | Continuity of Care Document ---
:1975 Author Organization [facility] t Address [address] [place] [address] Care Team Providers Name Role Phone Jose R CONTRERAS, R Primary Care Physician Shreya ASHBY, T Attending Clinician Unavailable Only, Db Test Attending Clinician Unavailable Ebrahim COMPLEX MANAGER Attending Clinician DR SADIQ Attending Clinician Unavailable Summer ASHBY Attending Clinician Unavailable Pob[facility], [facility] Attending Clinician Unavailable DR SADIQ Admitting Clinician Unavailable Payers Payer Name Policy Type Policy Number Effective Date Expiration Date S ource Problems Condition Condition Condition Status Onset Resolution Last Treating Co mments Source Name Details Category Date Date Treatment Clinician Date No known No known Disease Unive rs active active ity of problems problems [facility] Allergies, Adverse Reactions, Alerts This patient has no known allergies or adverse reactions. Social History Social Habit Start Date Stop Date Quantity Comments Source Exposure to Not sure [facility] SARS-CoV-2 (event) [facility] Tobacco use and 2021-02-21 2021-02-21 Never used [facility] exposure 00:00:00 00:00:00 [facility] Sex Ass[birth year] [facility] 00:00:00 00:00:00 [facility] Smoking Status Start Date Stop Date Source Light tobacco smoker 2021-02-21 00:00:00 [facility] ity [facility] Medications Ordered Filled Start Stop Current Ordering Indication Dosage Frequency Signature Comments Components Source Medication Medication Date Date Medication? Clinician (SIG) Name Name losartan-hy Yes Univer s drochloroth 5-08 ity of iazide 00:00: [place] 100-25 mg 00 Medical per tablet Branch metFORMIN 2019-0 Yes [facility] 500 mg 5-08 ity of tablet 00:00: [facility] pravastatin 0 Yes Univer s 40 mg 5-08 ity of tablet 00:00: [facility] losartan-hy 2019-0 Yes Univer s drochloroth 5-08 ity of iazide 00:00: [place] 100-25 mg 00 Medical per tablet Branch metFORMIN 2019-0 Yes [facility] 500 mg 5-08 ity of tablet 00:00: [facility] pravastatin 0 Yes Univer s 40 mg 5-08 ity of tablet 00:00: [place] [facility] Procedures This patient has no known procedures. Encounters Start End Encounter Admission Attending Care Care Encounter Source Date/Time Date/Time Type Type Clinicians Facility Department ID 2021-05-12 2021-05-12 Letter DARRION Cash [id number] [facility] 00:00:00 00:00:00 (Out) Linda BECK [id number] it y of HOSPITAL [id number] Robert as [id number] [facility] [address] 2021-05-10 2021-05-10 Laboratory Only, Ang Db Test [facility] 1.2.8 [id number] [facility] 11:29:32 11:39:32 [facility] [id number] ity of [place] [id number] Robert as Tan?Blea [id number] Al [address] [facility] 2020-07-30 2020-07-30 Outpatient Johanny BABCOCK [facility] [id number] 04:00:00 06:30:00 YASMIN [facility] 2020-01-17 2020-01-17 Telephone DARRION Wheeler [id number] 00:00:00 00:00:00 Vanda BECK [id number] [facility] [id number] 2020-01-16 2020-01-16 Urgent Pob1, Acute [facility] [id number] 15:27:32 15:47:32 [facility] [id number] [place] [id number] [place] [id number] nal [address] One Results Test Description Test Time Test Comments Results Result Comments Source GLUCOMETER GLUCOSE- LAB USE ONLY 2020-07-30 07:30:00 Test Item Value Reference Range Interpretation Comme nts GLUCOMETER (test code = GMG) 167 mg/dL 70-100 H Meter ID: [id number]: [id number] BACILIO ARIELLA GLUCOMETER GLUCOSE- LAB USE [id number] 07:30:00 Test Item Value Reference Range Interpretation Comments GLUCOMETER (test code = 178 mg/dL 70-100 H Mete r ID: GMG) [id number] tor: [id number] BECKI SID URINE MONOCLONALFB2020-07-30 04:32:00 Test Item Value Reference Range Interpretation Comments PREG UR (test code = PGU) NEGATIVE NEGATIVE
[2021-05-25 02:27] LABS: Urine Blood 3+ (Negative); Urine Glucose 2+ (Negative); Urine Protein 1+ (Negative); Urine Specific Gravity 1.025 (1.005-1.030); Urine pH 5.5 (5.0-7.0)
[2021-05-25 02:56] LABS: Absolute Lymphocytes (CBC) 1.3 K/uL (0.7-4.9); Barbiturates NEGATIVE (NEGATIVE); Basophils % 0.7 % (0-1.3); Benzodiazepines NEGATIVE (NEGATIVE); Cocaine POSITIVE (NEGATIVE); Hematocrit 40.1 % (36.0-45.0); Lymphocytes % 18.2 % (15.3-44.8); METHAMPHETAM POSITIVE (NEGATIVE); MPV 8.9 fL (7.6-11.3); Methadone NEGATIVE (NEGATIVE); Opiates NEGATIVE (NEGATIVE); Phencyclidine NEGATIVE (NEGATIVE); RBC Red Blood Cell Count 4.51 M/uL (3.86-4.86); THC Cannibis NEGATIVE (NEGATIVE)
[2021-05-25 02:57] LABS: Protime INR 0.95
[2021-05-25 03:02] LABS: ALT/SGPT 44 U/L (12-78); AST/SGOT 28 U/L (15-37); Albumin 3.6 g/dL (3.4-5.0); Alkaline Phosphatase 115 U/L (45-117); BUN Blood Urea Nitrogen 9 mg/dL (7-18); Bicarbonate 22 mmol/L (21-32); Bilirubin Direct < 0.1 mg/dL (0-0.2); Bilirubin Total 0.2 mg/dL (0.2-1.0); Glucose Level 293 mg/dL (74-106); Potassium 3.3 mmol/L (3.5-5.1); Protein, Total 8.5 g/dL (6.4-8.2); Sodium Level 139 mmol/L (136-145)
[2021-05-25 03:17] LABS: Urine Specific Gravity/Preg 1.025 (1.005-1.030)
[2021-05-25 03:42] LABS: Creatine Phosphokinase 56 U/L (26-192); Troponin (Emerg Dept Use Only) < 0.02 ng/mL (0.0-0.045)
--- NOTE | 2021-05-25 05:04 | ER ---
Nurse's Notes [facility] Name: Alesia De Souza Age: 46 yrs Sex: Female : 1975 Arrival Date: 05/25/2021 Time: 01:41 Bed 19 Private MD: Diagnosis: Alcohol use, unspecified with intoxication;Methamphetamine Abuse;Cocaine Abuse Presentation: 05/25 01:42 Chief complaint: EMS states: EMS stated they were called to patient's residence and wg found her dressed in the bathtub. said the patient had drank a "bottle of whisky" in a short period of time. Stated patient doesn't normally drink. Pt is diabetic and EMS obtained a BG of 335. Pt vomited x2 and was mostly unresponsive. 22gIV NS in L hand. to come to ED. Initial Sepsis Screen: Does the patient meet any 2 criteria? No. Patient's initial sepsis screen is negative. Does the patient have a suspected source of infection? No. Patient's initial sepsis screen is negative. Risk Assessment: Do you want to hurt yourself or someone else? Unable to obtain. Onset of symptoms was May 25, 2021 at 01:00. 01:42 Method Of Arrival: EMS: [facility] 01:42 Acuity: EILEEN 3 02:34 Coronavirus screen:. Ebola Screen: Patient negative for fever greater than or equal to bc5 101.5 degrees Fahrenheit, and additional compatible Ebola Virus Disease symptoms Patient denies exposure to infectious person. Patient denies travel to an Ebola-affected area in the 21 days before illness onset. No symptoms or risks identified at this time. 02:47 Risk Assessment: Do you want to hurt yourself or someone else? Patient reports no bc5 desire to harm self or others. Triage Assessment: 01:46 General: Appears unkempt, well developed, well nourished, Behavior is Pt responsive to verbal stimuli. otherwise sleeping and incoherent. . Pain: Unable to use pain scale. EENT: No deficits noted. Neuro: No deficits noted. Cardiovascular: No deficits noted. Respiratory: No deficits noted. GI: Pt is actively vomiting undigested food. : No deficits noted. Derm: No deficits noted. Musculoskeletal: No deficits noted. Historical: - Allergies: 01:46 No Known Allergies; wg - PMHx: 01:46 Diabetes - NIDDM; Hypertension; wg - Immunization history:: Client reports having NOT received the Covid vaccine. - Social history:: Smoking status: unknown. Screenin:32 Abuse screen: Denies threats or abuse. Denies injuries from another. Nutritional bc5 screening: No deficits noted. Tuberculosis screening: No symptoms or risk factors identified. Fall Risk No fall in past 12 months (0 pts). No secondary diagnosis (0 pts). Ambulatory Aid- None/Bed Rest/Nurse Assist (0 pts). Gait- Normal/Bed Rest/Wheelchair (0 pts) Mental Status- Oriented to own ability (0 pts). Assessment: 02:34 Reassessment: Pt responsive to voice and follows simple commands, straight cathed bc5 patient using sterile technique pt tolerated well. 05:21 Reassessment: attempted to call x 2 to pick paitnet up, No answer and not bc5 accpeting voicemail at this time. Vital Signs: 01:42 BP 117 / 74; Pulse 94; Resp 24; Temp 96.9; Pulse Ox 96% on R/A; Weight 90.72 kg; Height 5 ft. 3 in. (160.02 cm); 03:21 BP 102 / 63; Pulse 82; Resp 15; Pulse Ox 96% on R/A; Pain 0/10; bc5 05:17 BP 131 / 90; Pulse 87; Resp 18; Temp 97.8(O); Pulse Ox 98% on R/A; Pain 0/10; bc5 01:42 Body Mass Index 35.43 (90.72 kg, 160.02 cm) ED Course: 01:41 Patient arrived in ED. wg 01:43 Arden Adrian MD is Attending Physician. [facility] 01:46 Triage completed. 01:46 Arm band placed on right wrist. wg 01:53 Sharlene Palacio, SYMONE is Primary Nurse. bc5 02:30 Acetaminophen Sent. bc5 02:30 Basic Metabolic Panel Sent. bc5 02:30 CBC with Diff Sent. bc5 02:33 No provider procedures requiring assistance completed. Inserted saline lock: 22 gauge bc5 in right hand, using aseptic technique. 02:34 Patient has correct armband on for positive identification. Fall risk band placed. bc5 Placed in gown. Bed in low position. Call light in reach. Side rails up X2. 02:36 CT Head C Spine In Process Unspecified. EDMS 02:44 documentation writer on. Pulse ox on. NIBP on. bc5 06:26 IV discontinued, intact, bleeding controlled, No redness/swelling at site. bc5 Administered Medications: 02:30 Drug: NS 0.9% 1000 ml Route: IV; Rate: 1000 ml; Site: right hand; bc5 05:05 Follow up: IV Status: Completed infusion bc5 Outcome: 02:33 Condition: stable bc5 05:03 Discharge ordered by . [facility] 06:26 Discharged to home ambulatory, with friend. bc5 06:26 Discharge instructions given to patient, Instructed on discharge instructions, follow up and referral plans. 06:28 Patient left the ED. bc5 Signatures: Dispatcher [employer] Arden Ramirez MD MD [facility] Juan C Montes, RN Sharlene Palacio RN RN 5 Corrections: (The following items were deleted from the chart) 05:53 05:17 BP 131 / 90; Pulse 87bpm; Resp 88bpm; Pulse Ox 98% RA; Temp 97.8F Oral; Pain bc5 0/10; bc5
--- NOTE | 2021-05-25 05:04 | EDPHYS ---
Physician Documentation [facility] Name: Alesia De Souza Age: 46 yrs Sex: Female : 1975 Arrival Date: 05/25/2021 Time: 01:41 Bed 19 Private MD: ED Physician Arden Adrian HPI: 05/25 01:50 This 46 yrs old Female presents to ER via EMS with complaints of Alcohol mh7 Intoxication. Altered Mental Status. 01:50 The patient presents with decreased mental status, decreased responsiveness. Onset: The mh7 symptoms/episode began/occurred today. Possible causes: alcohol, Drinking alcohol tonight. Associated signs and symptoms: Pertinent negatives: shortness of breath, vomiting, weakness. Current symptoms: In the emergency department the patient's symptoms are unchanged from the initial presentation, despite EMS interventions. According to EMS, patient family member reported she had drank alcohol tonight and has a decreased responsiveness.. Historical: - Allergies: 01:46 No Known Allergies; wg - PMHx: 01:46 Diabetes - NIDDM; Hypertension; wg - Immunization history:: Client reports having NOT received the Covid vaccine. - Social history:: Smoking status: unknown. ROS: 01:50 Unable to obtain ROS due to altered mental status. mh7 Exam: 01:50 Head/Face: Normocephalic, atraumatic. Eyes: Pupils equal round and reactive to light, mh7 extra-ocular motions intact. Lids and lashes normal. Conjunctiva and sclera are non-icteric and not injected. Cornea within normal limits. Periorbital areas with no swelling, redness, or edema. ENT: Nares patent. No nasal discharge, no septal abnormalities noted. Tympanic membranes are normal and external auditory canals are clear. Oropharynx with no redness, swelling, or masses, exudates, or evidence of obstruction, uvula midline. Mucous membranes moist. Neck: Trachea midline, no thyromegaly or masses palpated, and no cervical lymphadenopathy. Supple, full range of motion without nuchal rigidity, or vertebral point tenderness. No Meningismus. Chest/axilla: Normal chest wall appearance and motion. Nontender with no deformity. No lesions are appreciated. Cardiovascular: Regular rate and rhythm with a normal S1 and S2. No gallops, murmurs, or rubs. Normal PMI, no JVD. No pulse deficits. Respiratory: Lungs have equal breath sounds bilaterally, clear to auscultation and percussion. No rales, rhonchi or wheezes noted. No increased work of breathing, no retractions or nasal flaring. Abdomen/GI: Soft, non-tender, with normal bowel sounds. No distension or tympany. No guarding or rebound. No evidence of tenderness throughout. Back: No spinal tenderness. No costovertebral tenderness. Full range of motion. Skin: Warm, dry with normal turgor. Normal color with no rashes, no lesions, and no evidence of cellulitis. MS/ Extremity: Pulses equal, no cyanosis. Neurovascular intact. Full, normal range of motion. 01:50 Constitutional: The patient appears Somnolent but arousable to verbal stimuli 01:50 Neuro: Orientation: unable to test, the patient is clinically intoxicated, Mentation: unable to test, the patient is clinically intoxicated, Memory: unable to test, the patient is clinically intoxicated, Cranial nerves: unable to test, the patient is clinically intoxicated, Cerebellar function: unable to test, the patient is clinically intoxicated, Motor: unable to test, the patient is clinically intoxicated, Sensation: unable to test, the patient is clinically intoxicated, Gait: not tested. seizure activity, is not displayed by the patient, Abnormal movements: there are no abnormal movements. Vital Signs: 01:42 BP 117 / 74; Pulse 94; Resp 24; Temp 96.9; Pulse Ox 96% on R/A; Weight 90.72 kg; Height 5 ft. 3 in. (160.02 cm); 03:21 BP 102 / 63; Pulse 82; Resp 15; Pulse Ox 96% on R/A; Pain 0/10; bc5 05:17 BP 131 / 90; Pulse 87; Resp 18; Temp 97.8(O); Pulse Ox 98% on R/A; Pain 0/10; bc5 01:42 Body Mass Index 35.43 (90.72 kg, 160.02 cm) wg MDM: 05:01 Differential Diagnosis: CVA, electrolyte abnormality, alcohol intoxication, mh7 hypoglycemia, intracranial bleed, overdose, UTI, volume depletion. Data reviewed: vital signs, nurses notes, EMS record, lab test result(s), cardiac enzymes, CBC, drug level(s), alcohol, electrolytes, urinalysis, urine drug screen, UPT: negative EKG, radiologic studies, CT scan. Data interpreted: Pulse oximetry: on room air is 96 %. Interpretation: normal. Counseling: I had a detailed discussion with the patient and/or guardian regarding: the historical points, exam findings, and any diagnostic results supporting the discharge/admit diagnosis, lab results, radiology results, the need for outpatient follow up, to return to the emergency department if symptoms worsen or persist or if there are any questions or concerns that arise at home. Response to treatment: the patient's symptoms have resolved after treatment, the patient's blood pressure is in an acceptable range, mental status has returned to baseline, the patient no longer shows bradycardia, the patient is not short of breath, the patient is not tachycardic, the patient's pain is gone, the patient's temperature has normalized, the patient is now symptom free, patient is well hydrated. 05:03 Patient medically screened. [facility] 05:04 ED course: No acute distress, vital signs stable, no focal neurological deficits. [facility] Awake, alert, and oriented x 4 and answering questions appropriately. Discussed all test results and findings with the patient. She request to be discharged from the ED at this time.. 05/25 01:49 Order name: Acetaminophen [facility] 05/25 01:49 Order name: Basic Metabolic Panel [facility] 05/25 01:49 Order name: CBC with Diff [facility] 05/25 01:49 Order name: ETOH Level; Complete Time: 03:02 [facility] 05/25 01:49 Order name: Hepatic Function; Complete Time: 03:58 [facility] 05/25 01:49 Order name: PT-INR; Complete Time: 03:00 [facility] 05/25 01:49 Order name: Ptt, Activated; Complete Time: 03:00 [facility] 05/25 01:49 Order name: Salicylate; Complete Time: 03:00 [facility] 05/25 01:49 Order name: Urine Drug Screen; Complete Time: 03:00 [facility] 05/25 01:49 Order name: Acetaminophen Level; Complete Time: 03:58 [facility] 05/25 01:49 Order name: Basic Metabolic Panel; Complete Time: 03:58 [facility] 05/25 01:49 Order name: CBC with Automated Diff; Complete Time: 03:00 [facility] 05/25 02:26 Order name: Urine Dipstick-Ancillary; Complete Time: 02:28 EDMS 05/25 02:27 Order name: Urine --Ancillary (enter results) [facility] 05/25 01:49 Order name: EKG; Complete Time: 01:50 [facility] 05/25 01:49 Order name: EKG - Nurse/Tech; Complete Time: 02:30 [facility] 05/25 01:49 Order name: IV Saline Lock; Complete Time: 01:53 [facility] 05/25 01:49 Order name: Labs collected and sent; Complete Time: 02:30 [facility] 05/25 01:49 Order name: Suicide Screening ([place]) [facility] 05/25 01:49 Order name: Urine Dipstick-Ancillary (obtain specimen); Complete Time: 02:30 [facility] 05/25 01:49 Order name: Urine Test (obtain specimen); Complete Time: 02:30 [facility] 05/25 01:49 Order name: CT Head C Spine [facility] 05/25 02:27 Order name: Urine --Ancillary; Complete Time: 03:28 EDMS 05/25 03:00 Order name: Glucose, Ancillary Testing; Complete Time: 03:02 [facility] 05/25 03:09 Order name: Ketone, Serum; Complete Time: 03:28 [facility] 05/25 03:12 Order name: Creatine Phosphokinase; Complete Time: 03:58 EDMS 05/25 03:12 Order name: Troponin (Emerg Dept Use Only); Complete Time: 03:58 EDMS Administered Medications: 02:30 Drug: NS 0.9% 1000 ml Route: IV; Rate: 1000 ml; Site: right hand; [facility] 05:05 Follow up: IV Status: Completed infusion 5 Disposition Summary: 05/25/21 05:03 Discharge Ordered Location: Home [facility] Problem: new [facility] Symptoms: have improved [facility] Condition: Stable [facility] Diagnosis - Alcohol use, unspecified with intoxication 7 - Methamphetamine Abuse 7 - Cocaine Abuse [facility] Followup: [facility] - With: Private Physician - When: 2 - 3 days - Reason: Worsening of condition, Recheck today's complaints, Continuance of care, Re-evaluation by your physician Discharge Instructions: - Discharge Summary Sheet 7 - Cocaine Use Disorder 7 - Alcohol Intoxication, [id number] 7 - Methamphetamines Use Disorder [facility] Forms: - Medication Reconciliation Form 7 - Thank You Letter mh7 - Antibiotic Education 7 - Prescription Opioid Use [facility] Signatures: Dispatcher [employer] EDMS Arden Adrian MD MD mh7 Juan C Montes RN Sharlene Palacio RN RN bc5 Corrections: (The following items were deleted from the chart) 03:12 03:09 TROPONIN (EMERG DEPT USE ONLY)+C.LAB.BRZ ordered. EDMS EDMS 03:12 03:09 CREATINE PHOSPHOKINASE+C.LAB.BRZ ordered. EDMS EDMS
[2021-05-25 06:40] VITALS: BP 131/90; TEMP 97.8; O2SAT 98
--- NOTE | 2021-05-25 08:14 | EKG ---
Test Date: 2021-05-25 Test Time: 02:01:04 Television Script Writer: GUNNER MEASUREMENT RESULTS: Intervals: Rate: 79 PA: 156 QRSD: 96 QT: 402 QTc: 460 Diggs: P: 64 PA: 156 QRS: 54 T: 30 INTERPRETIVE STATEMENTS: Normal sinus rhythm Normal ECG Compared to ECG 02/21/2021 20:16:56 Myocardial infarct finding no longer present Electronically Signed On 05-25-21 08:14:05 CDT by Leonardo Mccoy
--- NOTE | 2021-05-25 10:58 | RAD REPORT ---
EXAM DESCRIPTION: CT - Head C Spine Mpr Wo Con - 05/25/2021 6:02 am CLINICAL HISTORY: AMS COMPARISON: None available TECHNIQUE: Axial CT of the head obtained from the skull apex to the skull base without contrast. Axi al CT images of the cervical spine obtained from the skull base through the thoracic inlet. Sagittal and coronal reformatted images available. This exam was performed according to our departmental dose- optimization program, which includes automated exposure control, adjustment of the mA and/or kV accor ding to patient size and/or use of iterative reconstruction technique. FINDINGS: CT head: No acute intracranial hemorrhage identified. No mass, mass effect, shift of the midline, abnormal ext ra-axial fluid collection or CT evidence of acute ischemic change identified. The ventricular system is unremarkable. No acute abnormalities of the supratentorial white matter, basal ganglia, cerebell um, or brainstem. The visualized paranasal sinuses and the mastoids are clear. No skull fracture identified. Visual ized orbits and globes are unremarkable. Cervical CT: Straightening of the cervical lordosis may be secondary to patient positioning. The atlantoaxial, a tlantodental, and occipitoatlantal intervals are preserved. No fracture identified. Vertebral body height preserved. Prevertebral soft tissues are unremarkable. Multilevel endplate spondylosis. Mild loss of intervertebral disc height at C5/6 and C6/7. Visualized skull base is intact. No fracture of the visualized facial bones. Visualized mastoid air c ells and paranasal sinuses are well aerated. Visualized thyroid is unremarkable. No cervical lymphadenopathy. No pneumothorax in the visualized lung apices. IMPRESSION: 1. No acute intracranial abnormality. 2. No acute fracture or subluxation of the cervical spine. 3. Mild degenerative change of the cervical spine. Electronically signed by: Junior Matute 05/25/2021 3:00 AM CDT
== END 2021-05-25 06:28 | disposition home or self-care (01) ==
LOC: ER 01:40
DX: F10.929 Alcohol use, unspecified with intoxication, unspecified (principal); F14.10 Cocaine abuse, uncomplicated; F15.10 Other stimulant abuse, uncomplicated; I10 Essential (primary) hypertension; E11.9 Type 2 diabetes mellitus without complications
CPT/HCPCS: 36415; 70450; 72125; 80048; 80076; 80307; 80320; 80329; 81003; 81025; 82010; 82550; 82947; 84484; 85025; 85610; 85730; 93005; 96360; 96361; 99284

== ENCOUNTER 2021-12-15 16:24 | Emergency (ER) | payer BC ==
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
[2021-12-15] MEDS ORDERED: FENTANYL CITR 100 MCG/2 ML ONE (16:50)
[2021-12-15 17:08] LABS: Absolute Lymphocytes (CBC) 1.2 K/uL (0.7-4.9); Hematocrit 38.5 % (36.0-45.0); MPV 8.5 fL (7.6-11.3); RBC Red Blood Cell Count 4.45 M/uL (3.86-4.86)
[2021-12-15 17:40] LABS: Potassium 3.4 mmol/L (3.5-5.1)
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
--- NOTE | 2021-12-15 18:09 | RAD REPORT ---
EXAM DESCRIPTION: CT - C Spine Wo Con - 12/15/2021 5:58 pm COMPARISON: None. TECHNIQUE: Axial 2 mm thick images of the cervical spine were obtained with sagittal and coronal rec onstruction images generated and reviewed. All CT scans are performed using dose optimization technique as appropriate and may include automated exposure control or mA/KV adjustment according to patient size. FINDINGS: Cervical body height and alignment are normal. Slight narrowing of C6-7 disc space noted. No fracture or acute bony abnormality. Mineralization along the posterior longitudinal ligament cause s slight narrowing of the central canal at C4 -C5 and C6. No significant degree of spinal stenosis se en. Findings are similar to comparison. No paraspinal mass or hematoma. Central canal detail is inherently limited on CT imaging. IMPRESSION: Negative CT cervical spine examination for acute or significant finding. No significant changes from May 2021.
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
[2021-12-15] MEDS ORDERED: POTASSIUM 25 MEQ EFFERV TAB ONE (20:13)
[2021-12-15] MEDS ORDERED: ACETAMINOPHEN 500 MG TAB ONE (20:13)
[2021-12-15] MEDS ORDERED: TETANUS & DIPHTHERIA TOX,ADULT 0.5 ML VIAL ONE (20:25)
[2021-12-15 23:41] VITALS: TEMP 98
[2021-12-15 23:45] VITALS: BP 143/88; O2SAT 98
== END 2021-12-15 20:55 | disposition home or self-care (01) ==
LOC: ER 16:24
DX: Z04.71 Encounter for examination and observation following alleged adult physical abuse (principal); S00.83XA Contusion of other part of head, initial encounter; M54.9 Dorsalgia, unspecified; I10 Essential (primary) hypertension; E11.9 Type 2 diabetes mellitus without complications; Z23 Encounter for immunization
CPT/HCPCS: 85025; 80048; 36415; 86900; 86850; 86901; 70450; 71250; 72125; 70486; 76377; 74176; 90471; 90714; 96374; 99284; J3010

== ENCOUNTER 2022-01-23 13:26 | Emergency (ER) | payer BC ==
--- OUTSIDE RECORDS SUMMARY | 2022-01-23 13:30 | XMS REPORT | Continuity of Care Document ---
:1975 Author Organization [facility] t Address [address] [place] [address] Care Team Providers Name Role Phone Jose R CONTRERAS, R Primary Care Physician Adonis CONTRERAS Attending Clinician ADONIS Attending Clinician Unavailable Doctor Unassigned, Name Attending Clinician Unavailable DR SADIQ Attending Clinician Unavailable Sumemr ASHBY Attending Clinician Unavailable Pob[facility], [facility] Attending Clinician Unavailable DR SADIQ Admitting Clinician Unavailable Payers Payer Name Policy Type Policy Number Effective Date Expiration Date S ource Problems Condition Condition Condition Status Onset Resolution Last Treating Co mments Source Name Details Category Date Date Treatment Clinician Date No known No known Disease Unive rs active active ity of problems problems [facility] Allergies, Adverse Reactions, Alerts Allergy Allergy Status Severity Reaction(s) Onset Inactive Treating Comm ents Source Name Type Date Date Clinician NO KNOWN Drug Active Univers ALLERGIE Class ity of S [facility] No Known DA Active [facility] s Social History Social Habit Start Date Stop Date Quantity Comments Source History of tobacco Cigarette Smoker University of use [facility] Alcohol intake 2021-08-26 2021-08-26 Current drinker Unive rsity of 00:00:00 00:00:00 of alcohol [facility] [place] [facility] (finding) [place] Tobacco use and 2020-01-16 2020-01-16 Never used Universit y of exposure 00:00:00 00:00:00 [facility] Cigarettes smoked 2020-01-16 2020-01-16 Univers ity of current (pack per 00:00:00 00:00:00 ) - Reported Branch Cigarette 2020-01-16 2020-01-16 University of pack-years 00:00:00 00:00:00 [facility] Sex Ass[birth year] At [birth year] Universit y of 00:00:00 00:00:00 [facility] Smoking Status Start Date Stop Date Source Light tobacco smoker 2020-01-16 00:00:00 Univers ity of [facility] Medications Ordered Filled Start Stop Current Ordering Indication Dosage Frequency Signature Comments Components Source Medication Medication Date Date Medication? Clinician (SIG) Name Name fluconazole 2021- No [id number] 150mg Take 1 Univers 150 mg -07 -12 tablet by ity of tablet 00:00: 05:59 mouth [place] 00 :00 every 72 Medical ([facility]) hours for 2 doses. fluconazole 2020-09- No [id number] 150mg Take 1 Univers (DIFLUCAN) 2-16 12-21 tablet by ity of 150 mg 00:00: 05:59 mouth [place] tablet 00 :00 every 72 Medical ([facility]) hours for 2 doses. fluconazole 2020-09- No [id number] 150mg Take 1 Univers (DIFLUCAN) 2-16 12-21 tablet by ity of 150 mg 00:00: 05:59 mouth [place] tablet 00 :00 every 72 Medical ([facility]) hours for 2 doses. losartan-hy 2020-0 Yes Univer s drochloroth 5-08 ity of iazide 00:00: [place] 100-25 mg 00 Medical per tablet Branch metFORMIN 2020-0 Yes Univers 500 mg 5-08 ity of tablet 00:00: [place] [facility] pravastatin 2020-0 Yes Univer s 40 mg 5-08 ity of tablet 00:00: [place] 00 [facility] Branch losartan-hy 2020-0 Yes Univer s drochloroth 5-08 ity of iazide 00:00: [place] 100-25 mg 00 Medical per tablet Branch metFORMIN 2020-0 Yes Univers 500 mg 5-08 ity of tablet 00:00: [place] [facility] pravastatin 2020-0 Yes Univer s 40 mg 5-08 ity of tablet 00:00: [facility] Branch losartan-hy 2020-0 Yes Univer s drochloroth 5-08 ity of iazide 00:00: [place] 100-25 mg 00 Medical per tablet Branch metFORMIN 2020-0 Yes Univers 500 mg 5-08 ity of tablet 00:00: [place] 00 Medical Branch pravastatin 2020-0 Yes Univer s 40 mg 5-08 ity of tablet 00:00: [place] 00 Medical Branch losartan-hy 2020-0 Yes Univer s drochloroth 5-08 ity of iazide 00:00: [place] 100-25 mg 00 Medical per tablet Branch metFORMIN 2020-0 Yes Univers 500 mg 5-08 ity of tablet 00:00: [place] 00 [facility] Branch pravastatin 2020-0 Yes Univer s 40 mg 5-08 ity of tablet 00:00: [place] 00 Medical Branch losartan-hy 2020-0 Yes Univer s drochloroth 5-08 ity of iazide 00:00: [place] 100-25 mg 00 Medical per tablet Branch metFORMIN 2020-0 Yes Univers 500 mg 5-08 ity of tablet 00:00: [address] Branch pravastatin 2020-0 Yes Univer s 40 mg 5-08 ity of tablet 00:00: [place] 00 Medical Branch losartan-hy 2020-0 Yes Univer s drochloroth 5-08 ity of iazide 00:00: [place] 100-25 mg 00 Medical per tablet Branch metFORMIN 2020-0 Yes Univers 500 mg 5-08 ity of tablet 00:00: [address] pravastatin 2020-0 Yes Univer s 40 mg 5-08 ity of tablet 00:00: [address] Immunizations Ordered Filled Immunization Date Status Comments [facility] [place] e Immunization Name Name SARS-COV-2 COVID-19 2020-12-30 Completed Unive rsity of PFIZER VACCINE 00:00:00 [facility] SARS-COV-2 COVID-19 2020-12-30 Completed Unive rsity of PFIZER VACCINE 00:00:00 [facility] SARS-COV-2 COVID-19 2020-12-30 Completed Unive rsity of PFIZER VACCINE 00:00:00 [facility] SARS-COV-2 COVID-19 2020-12-30 Completed Unive rsity of PFIZER VACCINE 00:00:00 [facility] SARS-COV-2 COVID-19 2020-12-30 Completed Unive rsity of PFIZER VACCINE 00:00:00 [facility] SARS-COV-2 COVID-19 2020-12-30 Completed Unive rsity of PFIZER VACCINE 00:00:00 [facility] SARS-COV-2 COVID-19 2020-12-09 Completed Unive rsity of PFIZER VACCINE 00:00:00 [facility] SARS-COV-2 COVID-19 2020-12-09 Completed Unive rsity of PFIZER VACCINE 00:00:00 [facility] SARS-COV-2 COVID-19 2020-12-09 Completed Unive rsity of PFIZER VACCINE 00:00:00 [facility] SARS-COV-2 COVID-19 2020-12-09 Completed Unive rsity of PFIZER VACCINE 00:00:00 [facility] SARS-COV-2 COVID-19 2020-12-09 Completed Unive rsity of PFIZER VACCINE 00:00:00 [facility] SARS-COV-2 COVID-19 2020-12-09 Completed Unive rsity of PFIZER VACCINE 00:00:00 [facility] Vital Signs Vital Name Observation Time Observation Value Comments Source BMI 2021-08-25 22:12:00 37.32 kg/m2 [facility] Systolic blood 2021-08-25 22:12:00 113 mm[Hg] Univer sity of pressure [facility] Diastolic blood 2021-08-25 22:12:00 78 mm[Hg] Unive rsity of pressure [facility] Heart rate 2021-08-25 22:12:00 96 /min [facility] Body temperature 2021-08-25 22:12:00 36.83 Hiral [facility] Res[facility] rate 2021-08-25 22:12:00 18 /min [facility] Body height 2021-08-25 22:12:00 152.4 cm [facility] Body weight 2021-08-25 22:12:00 86.682 kg [facility] Height 2020-07-30 04:10:00 152.4 CM Weight 2020-07-30 04:10:00 96.16 KG Height 2020-07-29 13:54:00 152.4 CM Weight 2020-07-29 13:54:00 94.8 KG Procedures Procedure Date / Time Performing Clinician Source Performed PAP SMEAR-LIQUID 2021-08-25 22:29:00 Fish, Sofy [facility] AUTHORIZATION TO RELEASE 2021-08-25 06:01:00 Doctor Unassigned, No [facility] PHI TO [facility] Name Medical Branch EXCISION OF LEFT FOOT 2020-07-30 00:00:00 Hortencia mccoy Medical TENDON OPEN Center Encounters Start End Encounter Admission Attending Care Care Encounter Source Date/Time Date/Time Type Type Clinicians Facility Department ID 2021-12-19 2021-12-19 Telephone Sofy Day ORDOTTY SILSBEE 1.2.840.11 [id number] Univers 00:00:00 00:00:00 [place] [id number] [id number] [id number] [address] 2021-09-16 2021-09-16 Telephone Sofy Day ORDOTTY SILSBEE 1.2.840.11 [id number] Univers 00:00:00 00:00:00 [place] [id number] [id number] [facility] [id number] [address] 2021-09-01 2021-09-01 Telephone Sofy Day [facility] 1.2.840.11 [id number] Univers 00:00:00 00:00:00 [place] [id number] [id number] [id number] [address] 2021-08-25 2021-08-25 Outpatient R SOFY DAY [facility] [id number] Univers 15:30:00 16:43:33 ity of [facility] 2021-08-25 2021-08-25 Office Sofy Day [facility] 1.2.840.114 [id number] Univers 15:30:00 16:43:33 Visit [place] [id number] [id number] [id number] [address] 2021-08-25 2021-08-25 Orders Doctor MAIER [id number] Univers 00:00:00 00:00:00 Only UnassEBONY wheeler [id number] ity of [facility] [id number] Robert as [id number] Medi devin 009 Branch 2020-07-30 2020-07-30 Outpatient Johanny [facility] [id number] [address] [place] 04:00:00 06:30:00 YASMIN Sullivana [facility] 2020-01-17 2020-01-17 Telephone DARRION Wheeler 1.2.840.114 [id number] 00:00:00 00:00:00 Vanda BECK [id number] [facility] [id number] [id number] 2020-01-16 2020-01-16 Urgent Pob1, Acute [facility] 1.2.840.114 [id number] 15:27:32 15:47:32 [facility] [id number] [place] [id number] Professio [id number] nal [address] One Results Test Description Test Time Test Comments Results Result Comments Source GLUCOMETER GLUCOSE- LAB USE ONLY 2020-07-30 07:30:00 Test Item Value Reference Range Interpretation Comme nts GLUCOMETER (test code = GMG) 167 mg/dL 70-100 H Meter ID: [id number]: [id number] BACILIO ARIELLA GLUCOMETER GLUCOSE- LAB USE [id number] 07:30:00 Test Item Value Reference Range Interpretation Comments GLUCOMETER (test code = 178 mg/dL 70-100 H Mete r ID: [id number]) [id number] tor: [id number] BECKI SID URINE MONOCLONALFB2020-07-30 04:32:00 Test Item Value Reference Range Interpretation Comments PREG UR (test code = PGU) NEGATIVE NEGATIVE
--- NOTE | 2022-01-23 17:08 | ER ---
Nurse's Notes [facility] Name: Alesia De Souza Age: 46 yrs Sex: Female : 1975 Arrival Date: 01/23/2022 Time: 13:29 Bed DIS2 Private MD: Wenceslao Garland R Diagnosis: Presentation: 01/23 13:44 Chief complaint: Patient states: Palpitations, weak, shaky, and L hand feels numb since ll1 1115 today. Fingerstick 97 in triage. Given juice and crackers since its low for her (150's normal). Coronavirus screen: Vaccine status: Patient reports receiving the 2nd dose of the covid vaccine. Client denies travel out of the [place] in the last 14 days. cough unrelated to allergies, diarrhea, fatigue, Client presents with at least one sign or symptom that may indicate coronavirus-19. Standard/surgical mask placed on the client. Ebola Screen: Patient denies travel to an Ebola-affected area in the 21 days before illness onset. No acute neurological deficit is noted. Initial Sepsis Screen: Does the patient meet any 2 criteria? No. Patient's initial sepsis screen is negative. Does the patient have a suspected source of infection? No. Patient's initial sepsis screen is negative. Risk Assessment: Do you want to hurt yourself or someone else? Patient reports no desire to harm self or others. Onset of symptoms was January 23, 2022. 13:44 Method Of Arrival: Ambulatory ll1 13:44 Acuity: EILEEN 3 ll1 Triage Assessment: 13:48 General: Appears uncomfortable, Behavior is cooperative, appropriate for age. Pain: ll1 Denies pain. Neuro: Reports numbness in left hand. Cardiovascular: Reports palpitations. Musculoskeletal: Reports weakness in generalized. Stroke Activation: Symptom onset < 3 hours Physician: Stroke Attending; Name: ; Notified At: ; Arrived At: Physician: Chief Stroke Resident; Name: ; Notified At: ; Arrived At: Physician: Stroke Resident; Name: ; Notified At: ; Arrived At: Physician: ED Attending; Name: ; Notified At: ; Arrived At: Physician: ED Resident; Name: ; Notified At: ; Arrived At: Historical: - Allergies: 13:47 No Known Allergies; ll1 - PMHx: 13:47 Diabetes - NIDDM; Hyperlipidemia; Hypertension; RA; ll1 - PSHx: 13:47 Cholecystectomy; section; wart removal; ll1 - Immunization history:: Client reports receiving the 2nd dose of the Covid vaccine, Flu vaccine status is unknown. - Social history:: Smoking status: Patient reports the use of cigarette tobacco products, denies chronic smoking, but will smoke occasionally. Vital Signs: 13:44 BP 113 / 68; Pulse 76; Resp 17; Temp 98.0; Pulse Ox 99% ; Weight 89.36 kg; Height 5 ft. ll1 1 in. (154.94 cm); Pain 7/10; 13:44 Body Mass Index 37.22 (89.36 kg, 154.94 cm) ll1 ED Course: 13:29 Patient arrived in ED. mr 13:29 Wenceslao Garland MD is Private Physician. mr 13:47 Triage completed. ll1 13:48 Arm band placed on. ll1 16:28 Willi Hedrick PA is PHCP. cp 16:28 Willi Raymond MD is Attending Physician. cp 17:06 Radha Nunn RN is Primary Nurse. ll1 Administered Medications: No medications were administered Outcome: 17:07 Patient left the ED. ll1 Signatures: Sirisha Ng mr Willi Hedrick PA PA cp Radha Nunn, RN RN ll1 Corrections: (The following items were deleted from the chart) 13:52 13:44 Coronavirus screen: Vaccine status: Patient reports receiving the 2nd dose of the ll1 covid vaccine. Client denies travel out of the [place] in the last 14 days. cough unrelated to allergies, diarrhea, fatigue, Client presents with at least one sign or symptom that may indicate coronavirus-19. Standard/surgical mask placed on the client. ll1 13:53 13:44 Chief complaint: Patient states: Palpitations, weak, shaky, and L hand feels numb ll1 since 1115 today. ll1
[2022-01-23 17:16] VITALS: BP 113/68; TEMP 98; O2SAT 99
--- NOTE | 2022-01-24 09:35 | EKG ---
Test Date: 2022-01-23 Test Time: 13:46:47 Splicer Apprentice: MARY MEASUREMENT RESULTS: Intervals: Rate: 71 UT: 130 QRSD: 90 QT: 414 QTc: 449 [place]: P: 47 UT: 130 QRS: 75 T: 25 INTERPRETIVE STATEMENTS: Normal sinus rhythm Nonspecific T wave abnormality Abnormal ECG Compared to ECG 05/25/2021 02:01:04 T-wave abnormality now present Electronically Signed On 01-24-22 09:32:24 CDT by Leonardo Mccoy
--- NOTE | 2022-01-24 17:08 | EDPHYS ---
Physician Documentation [facility] Name: Alesia De Souza Age: 46 yrs Sex: Female : 1975 Arrival Date: 01/23/2022 Time: 13:29 Bed DIS2 Private MD: Wneceslao Garland R ED Physician Willi Raymond Historical: - Allergies: 01/23 13:47 No Known Allergies; ll1 - PMHx: 13:47 Diabetes - NIDDM; Hyperlipidemia; Hypertension; RA; ll1 - PSHx: 13:47 Cholecystectomy; section; wart removal; ll1 - Immunization history:: Client reports receiving the 2nd dose of the Covid vaccine, Flu vaccine status is unknown. - Social history:: Smoking status: Patient reports the use of cigarette tobacco products, denies chronic smoking, but will smoke occasionally. Vital Signs: 13:44 BP 113 / 68; Pulse 76; Resp 17; Temp 98.0; Pulse Ox 99% ; Weight 89.36 kg; Height 5 ft. ll1 1 in. (154.94 cm); Pain 7/10; 13:44 Body Mass Index 37.22 (89.36 kg, 154.94 cm) ll1 MDM: 16:55 Patient medically screened. [facility] 17:00 ED course: Patient left ED prior to evaluation by provider. 01/23 14:04 Order name: Glucose, Ancillary Testing EDIL 01/23 13:48 Order name: EKG; Complete Time: 13:49 ll1 01/23 13:48 Order name: EKG - Nurse/Tech ll1 Administered Medications: No medications were administered Disposition Summary: 01/23/22 17:07 Eloped Disposition: post triage evaluation and consult ll1 Reason: unknown ll1 Signatures: Wlili Raymond MD MD cha Page, Corey PA PA Radha Jones, RN RN ll1
== END 2022-01-23 17:07 | disposition left against medical advice (07) ==
LOC: ER 13:26
DX: R00.2 Palpitations (principal); Z53.21 Procedure and treatment not carried out due to patient leaving prior to being seen by health care provider; I10 Essential (primary) hypertension; E78.5 Hyperlipidemia, unspecified; E11.9 Type 2 diabetes mellitus without complications
CPT/HCPCS: 82947; 93005; 99281

== ENCOUNTER 2022-06-02 20:57 | Emergency (ER) | payer BC ==
--- OUTSIDE RECORDS SUMMARY | 2022-06-02 21:00 | XMS REPORT | Continuity of Care Document ---
:1975 Author Organization [facility] t Address [address] [place] [address] Care Team Providers Name Role Phone BURKE ASPEN Chaya Primary Care Physician Unavailable SHERWIN AMBROSE Attending Clinician Unavailable Sofy Day MD Attending Clinician SOFY DAY Attending Clinician Unavailable Doctor Unassigned, [place] Attending Clinician Unavailable DR YASMIN BABCOCK Attending Clinician Unavailable Vanda Wheeler RN Attending Clinician Unavailable [facility] Attending Clinician Unavailable DR YASMIN BABCOCK Admitting Clinician Unavailable Payers Payer Name Policy Type Policy Number Effective Date Expiration Date Jane marcano [facility] [id number] 2017 00:00:00 SELECT Problems Condition Condition Condition Status Onset Resolution Last Treating Co mments Source Name Details Category Date Date Treatment Clinician Date No known No known Disease Unive rs active active ity of problems problems [facility] Allergies, Adverse Reactions, Alerts Allergy Allergy Status Severity Reaction(s) Onset Inactive Treating Comm ents Source Name Type Date Date Clinician No Known DA Active [facility] NO KNOWN Drug Active Univers ALLERGIE Class ity of S [facility] Social History Social Habit Start Date Stop Date Quantity Comments Source History of tobacco Cigarette Smoker University of use [facility] Alcohol intake 2021-08-26 2021-08-26 Current drinker Unive rsity of 00:00:00 00:00:00 of alcohol [facility] [place] Tobacco use and 2020-01-16 2020-01-16 Never used Universit y of exposure 00:00:00 00:00:00 [facility] Cigarettes smoked 2020-01-16 2020-01-16 Univers ity of current (pack per 00:00:00 00:00:00 [facility] ) - Reported Branch Cigarette 2020-01-16 2020-01-16 University of pack-years 00:00:00 00:00:00 [facility] Sex Ass[birth year] At [birth year] Universit y of 00:00:00 00:00:00 [facility] Smoking Status Start Date Stop Date Source Light tobacco smoker 2020-01-16 00:00:[address] [facility] Medications Ordered Filled Start Stop Current Ordering Indication Dosage Frequency Signature Comments Components Source Medication Medication Date Date Medication? Clinician (SIG) Name Name fluconazole 2021- No [id number] 150mg Take 1 Univers 150 mg 09-16-12 tablet by ity of tablet 00:00: 05:59 mouth [place] 00 :00 [facility] 72 [facility] for 2 doses. fluconazole 2020-09- No [id number] 150mg Take 1 Univers (DIFLUCAN) 2-16 12-21 tablet by ity of 150 mg 00:00: 05:59 mouth [place] tablet 00 :00 every 72 Medical ([facility] wo) hours for 2 doses. fluconazole 2020-09- No [id number] 150mg Take 1 Univers (DIFLUCAN) 2-16 12-21 tablet by ity of 150 mg 00:00: 05:59 mouth [place] tablet 00 :00 every 72 [facility] hours for 2 doses. losartan-hy 2020-0 Yes Univer s drochloroth 5-08 ity of iazide 00:00: [place] 100-25 mg 00 Medical per tablet Branch metFORMIN 2020-0 Yes Univers 500 mg 5-08 ity of tablet 00:00: [place] 00 [facility] pravastatin 2020-0 Yes Univer s 40 mg 5-08 ity of tablet 00:00: [place] 00 [facility] losartan-hy 2020-0 Yes Univer s drochloroth 5-08 ity of iazide 00:00: [place] 100-25 mg 00 Medical per tablet Branch metFORMIN 2020-0 Yes Univers 500 mg 5-08 ity of tablet 00:00: [place] [facility] pravastatin 2020-0 Yes Univer s 40 mg 5-08 ity of tablet 00:00: [place] 00 Medical Branch losartan-hy 2020-0 Yes Univer s drochloroth 5-08 ity of iazide 00:00: [place] 100-25 mg 00 Medical per tablet Branch metFORMIN 2020-0 Yes Univers 500 mg 5-08 ity of tablet 00:00: [place] 00 Medical Branch pravastatin 2020-0 Yes Univer s 40 mg 5-08 ity of tablet 00:00: [place] 00 [facility] losartan-hy 2020-0 Yes Univer s drochloroth 5-08 ity of iazide 00:00: [place] 100-25 mg 00 Medical per tablet Branch metFORMIN 2020-0 Yes Univers 500 mg 5-08 ity of tablet 00:00: [place] 00 [facility] pravastatin 2020-0 Yes Univer s 40 mg 5-08 ity of tablet 00:00: [place] 00 Medical Branch losartan-hy 2020-0 Yes Univer s drochloroth 5-08 ity of iazide 00:00: [place] 100-25 mg 00 Medical per tablet Branch metFORMIN 2020-0 Yes Univers 500 mg 5-08 ity of tablet 00:00: [place] 00 Medical Branch pravastatin 2020-0 Yes Univer s 40 mg 5-08 ity of tablet 00:00: [place] 00 Medical Branch losartan-hy 2020-0 Yes Univer s drochloroth 5-08 ity of iazide 00:00: [place] 100-25 mg 00 Medical per tablet Branch metFORMIN 2020-0 Yes Univers 500 mg 5-08 ity of tablet 00:00: [address] Branch pravastatin 2020-0 Yes Univer s 40 mg 5-08 ity of tablet 00:00: [address] Immunizations Ordered Filled Immunization Date Status Comments [facility] e Immunization Name Name SARS-COV-2 COVID-19 2020-12-30 Completed Unive rsity of PFIZER VACCINE 00:00:00 [facility] SARS-COV-2 COVID-19 2020-12-30 Completed Unive rsity of PFIZER VACCINE 00:00:00 [facility] SARS-COV-2 COVID-19 2020-12-30 Completed Unive rsity of PFIZER VACCINE 00:00:00 [facility] SARS-COV-2 COVID-19 2020-12-30 Completed Unive rsity of PFIZER VACCINE 00:00:00 [facility] SARS-COV-2 COVID-19 2020-12-30 Completed Unive rsity of PFIZER VACCINE 00:00:00 [facility] SARS-COV-2 COVID-19 2020-12-30 Completed Unive rsity of PFIZER VACCINE 00:00:00 [facility] SARS-COV-2 COVID-19 2020-12-09 Completed Unive rsity of PFIZER VACCINE 00:00:00 [facility] SARS-COV-2 COVID-19 2020-12-09 Completed Unive rsity of PFIZER VACCINE 00:00:00 [facility] SARS-COV-2 COVID-19 2020-12-09 Completed Unive rsity of PFIZER VACCINE 00:00:00 [facility] SARS-COV-2 COVID-19 2020-12-09 Completed Unive rsity of PFIZER VACCINE 00:00:00 [facility] SARS-COV-2 COVID-19 2020-12-09 Completed Unive rsity of PFIZER VACCINE 00:00:00 [facility] SARS-COV-2 COVID-19 2020-12-09 Completed Unive rsity of PFIZER VACCINE 00:00:00 [facility] Vital Signs Vital Name Observation Time Observation Value Comments Source BMI 2021-08-25 22:12:00 37.32 kg/m2 [facility] Systolic blood 2021-08-25 22:12:00 113 mm[Hg] Univer sity of pressure [facility] Diastolic blood 2021-08-25 22:12:00 78 mm[Hg] Unive rsity of pressure [facility] Heart rate 2021-08-25 22:12:00 96 /min [facility] Body temperature 2021-08-25 22:12:00 36.[address] [facility] Respiratory rate 2021-08-25 22:12:00 18 /min Univ ersity of [facility] Body height 2021-08-25 22:12:00 152.4 cm [facility] Body weight 2021-08-25 22:12:00 86.682 kg [facility] Height 2020-07-30 04:10:00 152.4 CM Weight 2020-07-30 04:10:00 96.16 KG Height 2020-07-29 13:54:00 152.4 CM Weight 2020-07-29 13:54:00 94.8 KG Procedures Procedure Date / Time Performing Clinician Source Performed PAP SMEAR-LIQUID 2021-08-25 22:29:00 Sofy Day [facility] AUTHORIZATION TO RELEASE 2021-08-25 06:01:00 Doctor Unassigned, No [facility] PHI TO [facility] Name [facility] EXCISION OF LEFT FOOT 2020-07-30 00:00:00 Hortencia mccoy [facility] TENDON OPEN Center Encounters Start End Encounter Admission Attending Care Care Encounter Source Date/Time Date/Time Type Type Clinicians Facility Department ID 2022-09-01 2022-09-01 Outpatient Chaya SHERWIN AMBROSE [facility] [id number] Univers 13:00:00 13:00:00 [id number] ity [facility] 2022-09-01 2022-09-01 Outpatient Chaya AMBROSE SHERWIN [facility] [id number] Univers 13:00:00 13:00:00 ity [facility] 2021-12-19 2021-12-19 Telephone AdonisSofy [facility] [id number] Univers 00:00:00 00:00:00 [place] [id number] it y of WOMEN'S [id number] [facility] [id number] [address] 2021-09-16 2021-09-16 Telephone Sofy Day [facility] [id number] Univers 00:00:00 00:00:00 [place] [id number] it y [place] [facility] [id number] [place] [facility] [id number] [address] 2021-09-01 2021-09-01 Telephone Sofy Day [facility] [id number] Univers 00:00:00 00:00:00 [place] [id number] it y of WOMEN'S [id number] [facility] [id number] [address] 2021-08-25 2021-08-25 Outpatient R SOFY DAY [facility] [id number] Univers 15:30:00 16:43:[address] [facility] 2021-08-25 2021-08-25 Office Sofy Day [facility] [id number] Univers 15:30:00 16:43:33 Visit [place] [id number] it y of WOMEN'S [id number] [facility] s HEALTH [id number] [facility] 134 Branch 2021-08-25 2021-08-25 Orders Doctor DARRION [id number] Univers 00:00:00 00:00:00 Only Unassigned, EBONY [id number] ity of [place] [facility] [id number] Robert as [id number] [facility] 009 Branch 2020-07-30 2020-07-30 Outpatient Johanny BABCOCK [facility] [id number]30[facility]00 [facility] 2020-01-17 2020-01-17 Telephone DARRION Wheeler [id number] 00:00:00 00:00:[id number] [facility] [id number] 2020-01-16 2020-01-16 Urgent Pob1, Acute [facility] [id number] 15:27:32 15:47:32 [facility] [id number] [place] [id number] Professio [id number] nal [address] One Results Test Description Test Time Test Comments Results Result Comments Source GLUCOMETER GLUCOSE- LAB USE ONLY 2020-07-30 07:30:00 Test Item Value Reference Range Interpretation Comme nts GLUCOMETER (test code = GMG) 167 mg/dL 70-100 H Meter ID: [id number]: [id number] BACILIO KRISHNAN GLUCOMETER GLUCOSE- LAB USE [id number] 07:30:00 Test Item Value Reference Range Interpretation Comments GLUCOMETER (test code = 178 mg/dL 70-100 H Mete r ID: GMG) [id number] tor: [id number] BECKI SID URINE MONOCLONALFB2020-07-30 04:32:00 Test Item Value Reference Range Interpretation Comments PREG UR (test code = PGU) NEGATIVE NEGATIVE
--- NOTE | 2022-06-02 21:34 | RAD REPORT ---
EXAM DESCRIPTION: RAD - Chest Single View - 06/02/2022 9:28 pm CLINICAL HISTORY: CHEST PAIN Chest pain. COMPARISON: Chest Single View dated 02/21/2021; Chest Pa And Lat (2 Views) dated 02/07/2021; Chest Sin gle View dated 08/11/2020; CHEST SINGLE VIEW dated 06/01/2008 FINDINGS: Portable technique limits examination quality. The lungs are grossly clear. The heart is normal in size. No displaced fractures. IMPRESSION: No acute intrathoracic process suspected.
[2022-06-02] MEDS ORDERED: MIDAZOLAM HCL 2 MG/2 ML INJ ONE (22:00)
[2022-06-02 22:01] LABS: Absolute Lymphocytes (CBC) 2.3 K/uL (0.7-4.9); Lymphocytes % 28.7 % (15.3-44.8); MPV 8.3 fL (7.6-11.3)
[2022-06-02 22:28] LABS: ALT/SGPT 46 U/L (12-78); AST/SGOT 20 U/L (15-37); Albumin 3.3 g/dL (3.4-5.0); Alkaline Phosphatase 122 U/L (45-117); Bilirubin Total 0.2 mg/dL (0.2-1.0); Lipase 125 U/L (73-393); Protein, Total 7.8 g/dL (6.4-8.2)
[2022-06-02 22:31] LABS: Magnesium 1.8 mg/dL (1.8-2.4); Potassium 3.2 mmol/L (3.5-5.1); Troponin High Sensitivity 4.1 pg/mL (<58.9)
[2022-06-02 22:33] LABS: Bilirubin Direct < 0.1 mg/dL (0-0.2)
--- NOTE | 2022-06-02 22:53 | RAD REPORT ---
EXAM DESCRIPTION: CTAbdomen Pelvis W Contrast - 06/02/2022 10:45 pm CLINICAL HISTORY: Abdominal pain. abdominal pain COMPARISON: Abdomen Pelvis W Contrast dated 08/10/2020; Abdomen Pelvis W Contrast dated 0; Abdomen Pelvis W Contrast dated 11/14/2016; Chest Pa And Lat (2 Views) dated 02/07/2021 TECHNIQUE: Biphasic CT imaging of the abdomen and pelvis was performed with 100 ml non-ionic IV cont rast. All CT scans are performed using dose optimization technique as appropriate and may include automated exposure control or mA/KV adjustment according to patient size. FINDINGS: The lung bases are clear. The liver demonstrates diffuse fatty infiltration. Cholecystectomy clips. Spleen, pancreas, adrenal g lands and kidneys are within normal limits. No bowel obstruction, free air, free fluid or abscess. Mild sigmoid diverticulosis coli is present. T here is subtle wall thickening in the sigmoid colon as well. The appendix is normal. No evidence of significant lymphadenopathy. No suspicious bony findings. IMPRESSION: Mild sigmoid diverticulosis coli is present mild wall thickening noted. No pericolonic i nflammation is seen. Suggest followup direct visualization of this region with colonoscopy if not rec ently performed. Diffuse fatty liver.
--- NOTE | 2022-06-02 23:50 | ER ---
Nurse's Notes [facility] Name: Alesia De Souza Age: 47 yrs Sex: Female : 1975 Arrival Date: 06/02/2022 Time: 20:58 Bed 23 Private MD: Diagnosis: Abdominal pain, unspecified;Chest pain, unspecified;Elevated blood-pressure reading, without diagnosis of hypertension Presentation: 06/02 21:04 Acuity: EILEEN 2 tw5 21:04 Chief complaint: Patient states: CP that started around 1330 today radiating to my ke1 back. Coronavirus screen: Vaccine status: Patient reports receiving the 2nd dose of the covid vaccine. Ebola Screen: No symptoms or risks identified at this time. 21:04 Method Of Arrival: Wheelchair [facility] 21:10 Initial Sepsis Screen: Does the patient meet any 2 criteria? No. Patient's initial ke1 sepsis screen is negative. Does the patient have a suspected source of infection? No. Patient's initial sepsis screen is negative. Risk Assessment: Do you want to hurt yourself or someone else? Patient reports no desire to harm self or others. Onset of symptoms was June 02, 2022 at 13:00. Triage Assessment: 21:08 General: Appears uncomfortable, Behavior is appropriate for age. Pain: Complains of ke1 pain in chest Pain radiates to back Pain currently is 10 out of 10 on a pain scale. at worst was 10 out of 10 on a pain scale. level that patient reports is acceptable is 4 out of 10 on a pain scale. Quality of pain is described as burning, Pain began gradually, 8 hours ago. 21:08 Cardiovascular: Capillary refill < 3 seconds Pulses are all present. Rhythm is sinus ke1 rhythm. Historical: - Allergies: 21:04 No Known Allergies; ke1 - PMHx: 21:04 Diabetes - NIDDM; Hyperlipidemia; Hypertension; RA; ke1 - PSHx: 21:04 section; Cholecystectomy; wart removal; ke1 - Immunization history:: Adult Immunizations Client reports receiving the 2nd dose of the Covid vaccine. - Social history:: Smoking status: Patient reports the use of cigarette tobacco products, denies chronic smoking, but will smoke occasionally. Screenin:11 Abuse screen: Denies threats or abuse. Nutritional screening: No deficits noted. ke1 Tuberculosis screening: No symptoms or risk factors identified. Fall Risk No fall in past 12 months (0 pts). No secondary diagnosis (0 pts). No IV (0 pts). Ambulatory Aid- None/Bed Rest/Nurse Assist (0 pts). Gait- Normal/Bed Rest/Wheelchair (0 pts) Mental Status- Oriented to own ability (0 pts). Total Johnson Fall Scale indicates No Risk (0-24 pts). Assessment: 21:50 Neuro: Calderon Agitation-Sedation Scale (RASS): 0 - Alert and Calm. ke1 23:09 Reassessment: Patient states feeling better. Patient states symptoms have improved. ke1 23:59 Reassessment: Patient states feeling better. Patient states symptoms have improved. ke1 Vital Signs: 21:10 BP 149 / 67; Pulse 78; Resp 19; Temp 98.3(O); Pulse Ox 100% on R/A; Weight 89.81 kg; ke1 Height 5 ft. 1 in. (154.94 cm); Pain 10/10; 21:58 BP 150 / 87; Pulse 73; Resp 20; Pulse Ox 96% on R/A; ke1 23:09 BP 142 / 76; Pulse 67; Resp 19; Temp 98.2; Pulse Ox 98% on R/A; Pain 2/10; ke1 21:10 Body Mass Index 37.41 (89.81 kg, 154.94 cm) ke1 ED Course: 20:58 Patient arrived in ED. ag3 21:01 Norma Zamora, RN is Primary Nurse. ke1 21:02 Austen Dasilva DO is Attending Physician. ms3 21:04 Triage completed. tw5 21:11 Arm band placed on right wrist. ke1 21:12 Bed in low position. Call light in reach. ke1 21:15 Client placed on continuous cardiac and pulse oximetry monitoring. NIBP monitoring ke1 applied. votator machine operator on. Pulse ox on. NIBP on. 21:30 XRAY Chest (1 view) In Process Unspecified. EDMS 21:47 Inserted saline lock: 22 gauge in right forearm, using aseptic technique. ke1 22:47 CT Abd/Pelvis - IV Contrast Only In Process Unspecified. EDMS 06/03 00:00 No provider procedures requiring assistance completed. IV discontinued. Patient ke1 maintains SpO2 saturation greater than 95% on room air. Administered Medications: 09/23 21:48 Not Given (Physician Discretion): Aspirin Chewable Tablet 324 mg PO once; 81 mg tablets ke1 x 4 21:56 Drug: Midazolam 1 mg Route: IVP; Site: right forearm; ke1 22:15 Follow up: Response: RASS: Alert and Calm (0) ke1 Medication: 06/03 00:00 VIS not applicable for this client. ke1 Outcome: 06/02 23:49 Discharge ordered by MD. [email or web address] 06/03 00:00 Discharged to home ambulatory. ke1 Condition: good Discharge instructions given to patient. 00:01 Patient left the ED. ke1 Signatures: Dispatcher [employer] EDMS Paris Matta ag3 Austen Dasilva DO DO ms3 Darlene Pearson tw5 Norma Zamora, RN RN ke1
--- NOTE | 2022-06-02 23:50 | EDPHYS ---
Physician Documentation [facility] [place] Name: Alesia De Souza Age: 47 yrs Sex: Female : 1975 Arrival Date: 06/02/2022 Time: 20:58 Bed 23 Private MD: ED Physician Austen Dasilva HPI: 06/02 23:49 This 47 yrs old Female presents to ER via Wheelchair with complaints of Chest ms3 Pain. 23:49 47-year-old female with past medical history of diabetes, hyperlipidemia, hypertension, ms3 rheumatoid arthritis presents for upper abdominal pain radiating to her chest. Patient states this began at 2 PM today. Patient has had intermittent pains for 2 weeks. Patient states her pain is 10/10 described as burning and pressure. Patient denies alleviating or inciting factors. Patient endorses nausea. Patient denies vomiting or diarrhea.. Historical: - Allergies: 21:04 No Known Allergies; ke1 - PMHx: 21:04 Diabetes - NIDDM; Hyperlipidemia; Hypertension; RA; ke1 - PSHx: 21:04 section; Cholecystectomy; wart removal; ke1 - Immunization history:: Adult Immunizations Client reports receiving the 2nd dose of the Covid vaccine. - Social history:: Smoking status: Patient reports the use of cigarette tobacco products, denies chronic smoking, but will smoke occasionally. ROS: 23:49 Constitutional: Negative for fever, and chills. Neck: Negative for injury, pain, and ms3 swelling, Cardiovascular: Negative for chest pain, and palpitations. Respiratory: Negative for shortness of breath, cough, wheezing, and pleuritic chest pain, Back: Negative for injury and pain, Skin: Negative for injury, rash, and discoloration. 23:49 Abdomen/GI: Positive for abdominal pain. 23:49 All other systems are negative. Exam: 21:17 ECG was reviewed by the Attending Physician. ms3 23:49 Constitutional: This is a well developed, well nourished patient who is awake, alert, ms3 and in no acute distress. Head/Face: Normocephalic, atraumatic. Neck: Trachea midline, no cervical lymphadenopathy. Supple, full range of motion without nuchal rigidity, or vertebral point tenderness. No Meningismus. Chest/axilla: Normal chest wall appearance and motion. Nontender with no deformity. Cardiovascular: Regular rate and rhythm with a normal S1 and S2. No gallops, murmurs, or rubs. Normal PMI, no JVD. No pulse deficits. Respiratory: Lungs have equal breath sounds bilaterally, clear to auscultation and percussion. No rales, rhonchi or wheezes noted. No increased work of breathing, no retractions or nasal flaring. 23:49 Back: No spinal tenderness. No costovertebral tenderness. Full range of motion. Skin: Warm, dry with normal turgor. Normal color with no rashes, no lesions, and no evidence of cellulitis. MS/ Extremity: Pulses equal, no cyanosis. Neurovascular intact. Full, normal range of motion. 23:49 Abdomen/GI: Inspection: abdomen appears normal, Bowel sounds: normal, Palpation: mild abdominal tenderness, in the epigastric area. Vital Signs: 21:10 BP 149 / 67; Pulse 78; Resp 19; Temp 98.3(O); Pulse Ox 100% on R/A; Weight 89.81 kg; ke1 Height 5 ft. 1 in. (154.94 cm); Pain 10/10; 21:58 BP 150 / 87; Pulse 73; Resp 20; Pulse Ox 96% on R/A; ke1 23:09 BP 142 / 76; Pulse 67; Resp 19; Temp 98.2; Pulse Ox 98% on R/A; Pain 2/10; ke1 21:10 Body Mass Index 37.41 (89.81 kg, 154.94 cm) ke1 MDM: 21:46 Patient medically screened. ms3 23:49 Differential diagnosis: abnormal EKG, acute myocardial infarction, coronary artery ms3 disease. 23:49 Data reviewed: vital signs, nurses notes, lab test result(s), EKG, radiologic studies, ms3 and as a result, I will discharge patient. Counseling: I had a detailed discussion with the patient and/or guardian regarding: the historical points, exam findings, and any diagnostic results supporting the discharge/admit diagnosis, lab results, radiology results, the need for outpatient follow up, to return to the emergency department if symptoms worsen or persist or if there are any questions or concerns that arise at home. Special discussion: I discussed with the patient/guardian in detail that at this point there is no indication for admission to the hospital. It is understood, however, that if the symptoms persist or worsen the patient needs to return immediately for re-evaluation. ED course: Discussed labs, and imaging with patient. Patient to follow-up with her anatomic pathology manager as discussed. All questions were answered. Return precautions discussed include worsening symptoms, or any other concerns. On reevaluation patient is alert and oriented x4, no apparent distress, nontoxic, ambulatory in emergency department. 06/02 21:03 Order name: Basic Metabolic Panel; Complete Time: 22:49 ms3 06/02 21:03 Order name: CBC with Diff; Complete Time: 22:49 ms3 06/02 21:03 Order name: Magnesium; Complete Time: 22:49 ms3 06/02 21:03 Order name: Troponin HS; Complete Time: 22:49 ms3 06/02 21:21 Order name: LFT's; Complete Time: 22:49 ms3 06/02 21:21 Order name: Lipase; Complete Time: 22:49 ms3 06/02 21:03 Order name: XRAY Chest (1 view); Complete Time: 22:49 ms3 06/02 21:03 Order name: EKG; Complete Time: 21:04 ms3 06/02 21:03 Order name: Cardiac monitoring; Complete Time: 21:48 ms3 06/02 21:03 Order name: EKG - Nurse/Tech; Complete Time: 21:48 ms3 06/02 21:21 Order name: CT Abd/Pelvis - IV Contrast Only; Complete Time: 23:44 ms3 06/02 22:38 Order name: CREATININE WHOLE BLOOD; Complete Time: 22:49 EDMS 06/02 21:03 Order name: IV Saline Lock; Complete Time: 21:48 ms3 06/02 21:03 Order name: Labs collected and sent; Complete Time: 21:48 ms3 06/02 21:03 Order name: O2 Per Protocol; Complete Time: 21:48 ms3 06/02 21:03 Order name: O2 Sat Monitoring; Complete Time: 21:48 ms3 EC:17 Rate is 67 beats/min. Rhythm is regular. QRS [place] is Normal. [place] interval is normal. QRS ms3 interval is normal. Clinical impression: NSR with Incomplete RBBB. Interpreted by me. Reviewed by me. Administered Medications: 21:48 Not Given (Physician Discretion): Aspirin Chewable Tablet 324 mg PO once; 81 mg tablets ke1 x 4 21:56 Drug: Midazolam 1 mg Route: IVP; Site: right forearm; ke1 22:15 Follow up: Response: RASS: Alert and Calm (0) ke1 Disposition Summary: 06/02/22 23:49 Discharge Ordered Location: Home ms3 Condition: Stable ms3 Diagnosis - Abdominal pain, unspecified ms3 - Chest pain, unspecified ms3 - Elevated blood-pressure reading, without diagnosis of hypertension ms3 Followup: ms3 - With: Private Physician - When: 2 - 3 days - Reason: Recheck today's complaints Discharge Instructions: - Discharge Summary Sheet ms3 - Abdominal Pain, Adult ms3 - Nonspecific Chest Pain, Adult ms3 Forms: - Medication Reconciliation Form ms3 - Thank You Letter ms3 - Antibiotic Education ms3 - Prescription Opioid Use ms3 Signatures: Dispatcher [employer] Austen Bee DO DO ms3 Norma Zamora RN RN ke1
[2022-06-04 16:18] VITALS: BP 142/76; TEMP 98.2; O2SAT 98
--- NOTE | 2022-06-05 14:12 | EKG ---
Test Date: 2022-06-02 Test Time: 21:17:01 Banjo Repairer: ARTEMIO MEASUREMENT RESULTS: Intervals: Rate: 67 HI: 142 QRSD: 98 QT: 398 QTc: 420 [place]: P: 51 HI: 142 QRS: 41 T: 47 INTERPRETIVE STATEMENTS: Normal sinus rhythm Incomplete right bundle branch block Possible Anterior infarct, age undetermined Abnormal ECG Compared to ECG 01/23/2022 13:46:47 Incomplete right bundle-branch block now present Myocardial infarct finding now present T-wave abnormality no longer present Electronically Signed On 06-05-22 14:09:44 CDT by Nasir Germain
== END 2022-06-03 00:01 | disposition home or self-care (01) ==
LOC: ER 20:57
DX: R07.89 Other chest pain (principal); R10.10 Upper abdominal pain, unspecified; I10 Essential (primary) hypertension; F17.210 Nicotine dependence, cigarettes, uncomplicated
CPT/HCPCS: 93005; 85025; 80048; 36415; 83735; 82565; 80076; 84484; 83690; 74177; 71045; 96374; 99285; Q9967; J2250

== ENCOUNTER 2022-08-07 05:27 | Emergency (ER) | payer BC ==
--- OUTSIDE RECORDS SUMMARY | 2022-08-07 05:30 | XMS REPORT | Continuity of Care Document ---
:1975 Author Organization [facility] t Address [address] [place] [address] [address]. [address]. [address] [place] [address] Care Team Providers Name Role Phone FRACISCOCOCONORMA ASPEN R Primary Care Physician Unavailable SHERWIN AMBROSE Attending Clinician Unavailable SOFY LAMB Attending Clinician Unavailable Damian Medina MD Attending Clinician Sofy Lamb MD Attending Clinician Doctor Unassigned, [place] Attending Clinician Unavailable Sarah Dale MA Attending Clinician Unavailable Linda Cash RN Attending Clinician Unavailable Only, Ang Db Test Attending Clinician Unavailable Malachi Aguayo Attending Clinician Willi Serrato RN Attending Clinician Unavailable DR YASMIN BABCOCK Attending Clinician Unavailable Vanda Wheeler RN Attending Clinician Unavailable Pob[facility], Acute [facility] Attending Clinician Unavailable Joana Gastelum Attending Clinician JOANA SCHOFIELD Attending Clinician Unavailable DR YASMIN BABCOCK Admitting Clinician Unavailable Payers Payer Name Policy Type Policy Number Effective Date Expiration Date Jane marcano [facility] [id number] 2017 00:00:00 SELECT Problems Condition Condition Condition Status Onset Resolution Last Treating Co mments Source Name Details Category Date Date Treatment Clinician Date No known No known Disease Unive rs active active ity of problems problems [facility] Allergies, Adverse Reactions, Alerts Allergy Allergy Status Severity Reaction(s) Onset Inactive Treating Comm ents Source Name Type Date Date Clinician No Known DA Active [facility] NO KNOWN Drug Active Univers ALLERGIE Class ity of S [facility] Social History Social Habit Start Date Stop Date Quantity Comments Source History of tobacco Cigarette Smoker University of use [facility] Alcohol intake 2021-08-26 2021-08-26 Current drinker Unive rsity of 00:00:00 00:00:00 of alcohol [facility] (finding) [place] Tobacco use and 2020-01-16 2020-01-16 Never used Universit y of exposure 00:00:00 00:00:00 [facility] Cigarettes smoked 2020-01-16 2020-01-16 Univers ity of current (pack per 00:00:00 00:00:00 [facility] ) - Reported Branch Cigarette 2020-01-16 2020-01-16 University of pack-years 00:00:00 00:00:00 [facility] Sex Ass[birth year] [employer] 00:00:00 00:00:00 Hospital Smoking Status Start Date Stop Date Source Tobacco smoking consumption [facility] unknown Light tobacco smoker 2020-01-16 00:00:00 [facility] Medications Ordered Filled Start Stop Current Ordering Indication Dosage Frequency Signature Comments Components Source Medication Medication Date Date Medication? Clinician (SIG) Name Name fluconazole 2021- No [id number] 150mg Take 1 Univers 150 mg 09-16 tablet by ity of tablet 00:00: 05:59 mouth [place] 00 :00 every 72 [facility] for 2 doses. fluconazole 2020-09- No [id number] 150mg Take 1 Univers (DIFLUCAN) 2-16 12-21 tablet by ity of 150 mg 00:00: 05:59 mouth [place] tablet 00 :00 every 72 Medical ([facility] Branch wo) hours for 2 doses. fluconazole 2020-09- No [id number] 150mg Take 1 Univers (DIFLUCAN) 2-16 12-21 tablet by ity of 150 mg 00:00: 05:59 mouth [place] tablet 00 :00 every 72 Medical [facility] hours for 2 doses. losartan-hy Yes Univer s drochloroth 5-08 ity of iazide 00:00: [place] 100-25 mg 00 Medical per tablet Branch metFORMIN 2020-0 Yes Univers 500 mg 5-08 ity of tablet 00:00: [place] 00 Medical Branch pravastatin 2020-0 Yes Univer s 40 mg 5-08 ity of tablet 00:00: [place] 00 Medical Branch losartan-hy 2020-0 Yes Univer s drochloroth 5-08 ity of iazide 00:00: [place] 100-25 mg 00 Medical per tablet Branch metFORMIN 2020-0 Yes Univers 500 mg 5-08 ity of tablet 00:00: [place] 00 Medical Branch pravastatin 2020-0 Yes Univer s 40 mg 5-08 ity of tablet 00:00: [place] [address] Medical Branch losartan-hy 2020-0 Yes Univer s drochloroth 5-08 ity of iazide 00:00: [place] 100-25 mg 00 Medical per tablet Branch metFORMIN 2020-0 Yes Univers 500 mg 5-08 ity of tablet 00:00: [place] [address] Medical Branch pravastatin 2020-0 Yes Univer s 40 mg 5-08 ity of tablet 00:00: [place] [address] Medical Branch losartan-hy 2020-0 Yes Univer s drochloroth 5-08 ity of iazide 00:00: [place] 100-25 mg 00 Medical per tablet Branch metFORMIN 2020-0 Yes Univers 500 mg 5-08 ity of tablet 00:00: [place] [address] Medical Branch pravastatin 2020-0 Yes Univer s 40 mg 5-08 ity of tablet 00:00: [place] [address] Medical Branch losartan-hy 2020-0 Yes Univer s drochloroth 5-08 ity of iazide 00:00: [place] 100-25 mg 00 Medical per tablet Branch metFORMIN 2020-0 Yes Univers 500 mg 5-08 ity of tablet 00:00: [place] [address] Medical Branch pravastatin 2020-0 Yes Univer s 40 mg 5-08 ity of tablet 00:00: [place] [address] Medical Branch losartan-hy 2020-0 Yes Univer s drochloroth 5-08 ity of iazide 00:00: [place] 100-25 mg 00 Medical per tablet Branch metFORMIN 2020-0 Yes Univers 500 mg 5-08 ity of tablet 00:00: [place] [address] Medical Branch pravastatin 2020-0 Yes Univer s 40 mg 5-08 ity of tablet 00:00: [place] [address] Medical Branch Immunizations Ordered Filled Immunization Date Status Comments Sour e Immunization Name Name SARS-COV-2 COVID-19 2020-12-30 Completed Unive rsity of PFIZER VACCINE 00:00:00 [facility] SARS-COV-2 COVID-19 2020-12-30 Completed Unive rsity of PFIZER VACCINE 00:00:00 [facility] SARS-COV-2 COVID-19 2020-12-30 Completed Unive rsity of PFIZER VACCINE 00:00:00 [facility] SARS-COV-2 COVID-19 2020-12-30 Completed Unive rsity of PFIZER VACCINE 00:00:00 [facility] SARS-COV-2 COVID-19 2020-12-30 Completed Unive rsity of PFIZER VACCINE 00:00:00 [facility] SARS-COV-2 COVID-19 2020-12-30 Completed Unive rsity of PFIZER VACCINE 00:00:00 [facility] SARS-COV-2 COVID-19 2020-12-09 Completed Unive rsity of PFIZER VACCINE 00:00:00 [facility] SARS-COV-2 COVID-19 2020-12-09 Completed Unive rsity of PFIZER VACCINE 00:00:00 [facility] SARS-COV-2 COVID-19 2020-12-09 Completed Unive rsity of PFIZER VACCINE 00:00:00 [facility] SARS-COV-2 COVID-19 2020-12-09 Completed Unive rsity of PFIZER VACCINE 00:00:00 [facility] SARS-COV-2 COVID-19 2020-12-09 Completed Unive rsity of PFIZER VACCINE 00:00:00 [facility] SARS-COV-2 COVID-19 2020-12-09 Completed Unive rsity of PFIZER VACCINE 00:00:00 [facility] Vital Signs Vital Name Observation Time Observation Value Comments Source BMI 2021-08-25 22:12:00 37.32 kg/m2 [facility] Systolic blood 2021-08-25 22:12:00 113 mm[Hg] Univer sity of pressure [facility] Diastolic blood 2021-08-25 22:12:00 78 mm[Hg] Unive rsity of pressure [facility] Heart rate 2021-08-25 22:12:00 96 /min [facility] Body temperature 2021-08-25 22:12:00 36.83 Hiral [facility] Respiratory rate 2021-08-25 22:12:00 18 /min [facility] Body height 2021-08-25 22:12:00 152.4 cm [facility] Body weight 2021-08-25 22:12:00 86.682 kg [facility] Height 2020-07-30 04:10:00 152.4 CM Weight 2020-07-30 04:10:00 96.16 KG Height 2020-07-29 13:54:00 152.4 CM Weight 2020-07-29 13:54:00 94.8 KG Procedures Procedure Date / Time Performing Clinician Source Performed [place] HEPATOBILIARY 2022-07-12 15:08:18 Damian Medina [facility] PAP SMEAR-LIQUID 2021-08-25 22:29:00 Sofy Lamb [facility] AUTHORIZATION TO RELEASE 2021-08-25 06:01:00 Doctor Unassigned, No [facility] PHI TO [facility] Name [facility] Branch EXCISION OF LEFT FOOT 2020-07-30 00:00:00 Hortencia mccoy [facility] OPEN Center Plan of Care Planned Activity Planned Date Details Comments Source Future Scheduled 2022-07-17 HEPATITIS B VACCINES Met [facility] Test 12:57:24 (1 of 3 - 3-dose series) [code = HEPATITIS B VACCINES (1 of 3 - 3-dose series)] Future Scheduled 2022-07-17 Hepatitis C screening [facility] Test 12:57:24 (procedure) [code = 433342152] Future Scheduled 2022-07-[address] [facility] Test 12:57:24 malignant neoplasm of cervix (procedure) [code = 481211099] Future Scheduled 2022-07-[address] [facility] Test 12:57:24 SCREENING [code = BREAST CANCER SCREENING] Future Scheduled 2022-07-17 COVID-19 VACCINE (3 - [facility] Test 12:57:24 Booster for Pfizer series) [code = COVID-19 VACCINE (3 - Booster for Pfizer series)] Future Scheduled 2022-07-17 COLONOSCOPY SCREENING [facility] Test 12:57:24 [code = COLONOSCOPY SCREENING] Future Scheduled 2022-07-17 [facility]ACCINE [facility] 12:57:24 [code = INFLUENZA VACCINE] Encounters Start End Encounter Admission Attending Care Care Encounter Source Date/Time Date/Time Type Type Clinicians Facility Department ID 2022-09-01 2022-09-01 Outpatient Chaya AMBROSE [facility] [id number] [facility] 13:00:00 13:00:00 ity [facility] 2022-08-29 2022-08-29 Outpatient SOFY FARRIS [facility] [id number] [facility] 14:00:00 14:00:00 ity [facility] 2022-07-12 2022-07-12 [facility] 1.2.840.1 [id number] Methodi 08:01:02 23:59:00 Encounter Damian [id number] [place] 3.430.2.7 Hospit a .3.546143 l .8 2022-07-12 2022-07-12 Travel 1.2.840.1 [id number] [id number] Methodi 00:00:00 00:00:[address] 3.430.2.7 0.2.7.3.698 spita .3.239321 084.8 l .8 2022-07-12 2022-07-12 Outpatient [facility] [id number] 00:00:00 00:00:[address] 2022-06-08 2022-06-08 Transcribe [facility] 1.2.840.1 [id number] Methodi 00:00:00 00:00:00 Orders Damian [id number] [place] 3.430.2.7 Hospit a .3.848246 l .8 2021-12-19 2021-12-19 Tim Lamb Sofy [facility] 1.2.840.[id number] [facility] 00:00:00 00:00:00 HOLLY 350.1.13.10 it y of WOMEN'S 4.2.7.2.686 [facility] [id number] [place] [address] Branch 2021-09-16 2021-09-16 Telephone Sofy Lamb 1.2.840.11 [id number] Univers 00:00:00 00:00:00 HO[place] 350.1.13.10 [place] [facility] [id number] [facility] [address] [place] 2021-09-01 2021-09-01 Telephone Sofy Lamb 1.2.840.11 [id number] Univers 00:00:00 00:00:00 [place] 350.1.13.10 [place] [id number] [address] 2021-08-25 2021-08-25 Outpatient R SOFY LAMB [facility] [id number] Univers 15:30:00 16:43:33 ity of [facility] 2021-08-25 2021-08-25 Outpatient R SOFY LAMB [facility] [id number] Univers 15:30:00 16:43:33 ity of [facility] 2021-08-25 2021-08-25 Office Sofy Lamb [facility] 1.2.840.114 [id number] Univers 15:30:00 16:43:33 Visit HO[place] 350.1.13.10 it [place]2.[place] [id number] [address] 2021-08-25 2021-08-25 Orders Doctor DARRION 1.2.840.114 [id number] Univers 00:00:00 00:00:00 Only Unassigned, EBONY 350.1.13.10 ity of [place] [facility] 4.2.7.2.686 Robert as [id number] [place] [address] Branch 2021-07-25 2021-07-25 Pre Visit ADITYA Dale 1.2.653.639 [id number] Univers 00:00:00 00:00:00 Outreach Sarah HAMM 350.1.13.10 i [place] [id number] [facility] [address] [place] 2021-05-12 2021-05-12 Letter DARRION Cash 1.2.840.114 [id number] Univers 00:00:00 00:00:00 (Out) Linda BECK 350.1.13.10 it y of HOSPITAL 4.2.7.2.686 Robert as [id number] [address] 2021-05-10 2021-05-10 Laboratory Only, Ang Db Test [facility] 1.2.8 40.114 [id number] Univers 11:29:32 11:39:32 Only [facility] 350.1.13.10 ity [facility] 4.2.7.2.686 Robert as Tan?Blea [id number] [address] Medical Office Building 2021-05-10 2021-05-10 Outpatient R [facility] [id number] Univers 11:15:00 11:15:00 ity of [facility] 2021-02-21 2021-02-21 Nurse DARRION Serrato [id number] Univers 00:00:00 00:00:00 Triage Willi BECK 350.1.13.10 it y of HOSPITAL 4.2.7.2.686 Robert as [id number] [address] 2020-07-30 2020-07-30 Outpatient Johanny BABCOCK [facility] [id number] [facility] 04:00:00 06:30:00 YASMIN Sullivana [facility] 2020-01-17 2020-01-17 Telephone DARRION Wheeler 1.2.840.114 [id number] Univers 00:00:00 00:00:00 Vanda BECK 350.1.13.10 it y of HOSPITAL 4.2.7.2.686 Robert as [id number] [address] 2020-01-17 2020-01-17 Telephone DARRION Wheeler 1.2.840.114 [id number] 00:00:00 00:00:00 Vanda BECK 350.1.13.10 HOSPITAL 4.2.7.2.686 [id number] 2020-01-16 2020-01-16 Urgent Pob1, Acute Care Clinic [facility] 1. 2.840.114 [id number] Univers 15:27:32 15:47:32 [facility] 350.1.13.10 ity of [place] 4.2.7.2.686 Robert as Professio [id number] Ne dical [facility] [address] One 2020-01-16 2020-01-16 Urgent Pob1, Acute [facility] 1.2.840.114 [id number] 15:27:32 15:47:32 Care [facility] 350.1.13.10 [place] 4.2.7.2.686 Professio [id number] nal [address] One 2020-01-16 2020-01-16 Outpatient R [facility] [id number] Univers 15:40:00 15:40:00 JOANA sheikh [facility] Results Test Description Test Time Test Comments Results Result Comments Source GLUCOMETER GLUCOSE- LAB USE ONLY 2020-07-30 07:30:00 Test Item Value Reference Range Interpretation Comme nts GLUCOMETER (test code = GMG) 167 mg/dL 70-100 H Meter ID: [id number]: [id number] [facility] GLUCOMETER GLUCOSE- LAB USE [id number] 07:30:00 Test Item Value Reference Range Interpretation Comments GLUCOMETER (test code = 178 mg/dL 70-100 H Mete r ID: GMG) [id number] tor: [id number] BECKI SID URINE MONOCLONALFB2020-07-30 04:32:00 Test Item Value Reference Range Interpretation Comments PREG UR (test code = PGU) NEGATIVE NEGATIVE
[2022-08-07] MEDS ORDERED: MAGNES/ALUMIN/SIMET 30ML UCUP ONE (05:58)
[2022-08-07] MEDS ORDERED: LIDOCAINE VISCOUS 2% SOLN 15 ML UDC ONE (05:59)
[2022-08-07] MEDS ORDERED: PANTOPRAZOLE 40 MG INJ ONE (05:59)
[2022-08-07 06:25] LABS: Absolute Lymphocytes (CBC) 2.2 K/uL (0.7-4.9); Hematocrit 35.1 % (36.0-45.0); Lymphocytes % 24.1 % (15.3-44.8); MCV 88.2 fL (80-100); MPV 8.4 fL (7.6-11.3); RBC Red Blood Cell Count 3.98 M/uL (3.86-4.86)
[2022-08-07 07:11] LABS: Albumin 3.1 g/dL (3.4-5.0); Bilirubin Total 0.3 mg/dL (0.2-1.0); Protein, Total 7.5 g/dL (6.4-8.2); Troponin High Sensitivity 5.9 pg/mL (<58.9)
[2022-08-07] MEDS ORDERED: SUCRALFATE 1 GM TABLET ONE (08:26)
--- NOTE | 2022-08-07 08:27 | RAD REPORT ---
EXAM DESCRIPTION: CTAbdomen Pelvis W Contrast - 08/07/2022 7:24 am CLINICAL HISTORY: Abdominal pain. Epigastric pain COMPARISON: Abdomen Pelvis W Contrast dated 06/02/2022; Abdomen Pelvis W Contrast dated 08/10/2020 ; Abdomen Pelvis W Contrast dated 08/08/2020; Abdomen Pelvis W Contrast dated 11/14/2016 TECHNIQUE: Biphasic CT imaging of the abdomen and pelvis was performed with 100 ml non-ionic IV cont rast. All CT scans are performed using dose optimization technique as appropriate and may include automated exposure control or mA/KV adjustment according to patient size. FINDINGS: The lung bases are emphysematous. The liver is diffusely fatty. Cholecystectomy. Spleen, pancreas, adrenal glands and kidneys are withi n normal limits. No bowel obstruction, free air, free fluid or abscess. 7 cm length of sigmoid colon in the left lower quadrant shows numerous diverticula. The wall of the sigmoid colon is thickened with mild surroundin g inflammation. The appendix is normal. Small fat containing umbilical hernia. No evidence of signifi cant lymphadenopathy. No suspicious bony findings. IMPRESSION: 7 cm length of sigmoid colon in the left lower quadrant shows finding suspected to repre sent acute diverticulitis. No abscess seen. Follow-up colonoscopy is recommended after appropriate th erapy to exclude underlying mass. Fatty liver.
[2022-08-07 09:35] LABS: Urine Blood Negative (Negative); Urine Glucose Trace (Negative); Urine Protein Negative (Negative); Urine Specific Gravity 1.025 (1.005-1.030); Urine pH 5.5 (5.0-7.0)
[2022-08-07 09:47] LABS: Urine Mucus Slight /HPF (None Seen); Urine RBC <5 /HPF (None Seen)
--- NOTE | 2022-08-07 09:54 | ER ---
Nurse's Notes [facility] [place] [place] Name: Alesia De Souza Age: 47 yrs Sex: Female : 1975 Arrival Date: 08/07/2022 Time: 05:31 Bed 8 Private MD: Diagnosis: Diverticulitis of large intestine without perforation or abscess without bleeding;Anemia, unspecified Presentation: 08/07 05:47 Chief complaint: Patient states: I have this horrible burning pain. Coronavirus screen: aa9 Vaccine status: Patient reports receiving the 2nd dose of the covid vaccine. Ebola Screen: No symptoms or risks identified at this time. Initial Sepsis Screen: Does the patient meet any 2 criteria? No. Patient's initial sepsis screen is negative. Does the patient have a suspected source of infection? No. Patient's initial sepsis screen is negative. Risk Assessment: Do you want to hurt yourself or someone else? Patient reports no desire to harm self or others. Onset of symptoms was August 07, 2022. 05:47 Method Of Arrival: Ambulatory aa9 05:47 Acuity: EILEEN 3 aa9 Triage Assessment: 05:49 General: Appears uncomfortable, obese, Behavior is cooperative, appropriate for age, aa9 anxious. Pain: Complains of pain in epigastric area Quality of pain is described as burning, Also complains of. Neuro: Level of Consciousness is awake, alert, obeys commands, Oriented to person, place, time, situation. Cardiovascular: Capillary refill < 3 seconds Patient's skin is warm and dry. Rhythm is regular. Respiratory: Airway is patent Respiratory effort is even, unlabored. GI: Abdomen is obese, Reports bloating, diarrhea, Patient currently denies nausea, vomiting. : No signs and/or symptoms were reported regarding the genitourinary system. Derm: Skin is intact, is healthy with good turgor. Musculoskeletal: No signs and/or symptoms reported regarding the musculoskeletal system. 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 - Social history:: Smoking status: Patient reports the use of cigarette tobacco products, denies chronic smoking, but will smoke occasionally. Screenin:51 Abuse screen: Denies threats or abuse. Denies injuries from another. Nutritional aa9 screening: No deficits noted. Tuberculosis screening: No symptoms or risk factors identified. Fall Risk None identified. Assessment: 06:22 Reassessment: Patient appears in no apparent distress at this time. Patient is alert, aa9 oriented x 3, equal unlabored respirations, skin warm/dry/pink. Reassessment: pt states, PO meds eased her pain, she is now feeling hungry. 07:00 Reassessment: Patient appears in no apparent distress at this time. Patient is alert, aa9 oriented x 3, equal unlabored respirations, skin warm/dry/pink. report provided to receiving nurses. 08:31 Reassessment: Patient and/or family updated on plan of care and expected duration. Pain ap3 level reassessed. Patient is alert, oriented x 3, equal unlabored respirations, skin warm/dry/pink. 10:50 Pain: Pain does not radiate. Pain began gradually, 1 day ago. ap3 Vital Signs: 05:47 BP 168 / 94; Pulse 83; Resp 35; Temp 98.4; Pulse Ox 100% ; rv1 05:47 BP 168 / 94; Pulse 86; Resp 29 S; Temp 98.4(O); Pulse Ox 100% on R/A; Weight 88.45 kg aa9 (R); Height 5 ft. 0 in. (152.40 cm) (R); 06:23 BP 171 / 97; Pulse 65; Resp 27 S; Pulse Ox 97% on R/A; aa9 08:41 BP 167 / 90; Pulse 65; Pulse Ox 99% on R/A; ap3 05:47 Body Mass Index 38.08 (88.45 kg, 152.40 cm) aa9 ED Course: 05:31 Patient arrived in ED. bp1 05:34 Chris Addison MD is Attending Physician. rt 05:49 Triage completed. aa9 05:51 Arm band placed on. aa9 05:51 Patient has correct armband on for positive identification. Placed in gown. Bed in low aa9 position. Call light in reach. Side rails up X2. Client placed on continuous cardiac and pulse oximetry monitoring. NIBP monitoring applied. 05:51 Patient maintains SpO2 saturation greater than 95% on room air. aa9 05:56 Shantelle Johns, RN is Primary Nurse. aa9 06:15 Inserted saline lock: 20 gauge in left hand, using aseptic technique. Blood collected. aa9 06:22 Lipase Sent. aa9 06:22 CMP Sent. aa9 06:22 CBC with Diff Sent. aa9 06:22 Test, Serum Sent. aa9 06:22 Troponin High Sensitivity Sent. aa9 06:26 Door closed. Lights dimmed. Warm blanket given. aa9 06:37 Inserted saline lock: 22 gauge in left antecubital area, using aseptic technique. jb4 07:06 Attending Physician role handed off by Chris Addison MD ms3 07:06 Austen Dasilva DO is Attending Physician. ms3 07:26 CT Abd/Pelvis - IV Contrast Only In Process Unspecified. EDMS 08:20 Alexandra South, SYMONE is Primary Nurse. ap3 09:52 Jose Miguel Byrnes DO is Referral Physician. ms3 09:53 Samson Norman MD is Referral Physician. ms3 10:50 No provider procedures requiring assistance completed. IV discontinued, intact, ap3 bleeding controlled, No redness/swelling at site. Pressure dressing applied. Administered Medications: 06:21 Drug: ProTONIX (pantoprazole) 40 mg Route: IVP; Site: left hand; aa9 11:03 Follow up: Response: No adverse reaction ap3 06:22 Drug: GI Cocktail without - (Maalox Suspension 30 ml, Lidocaine Liquid 2 % 15 aa9 ml) Route: PO; 11:03 Follow up: Response: No adverse reaction ap3 08:31 Drug: Sucralfate Suspension 1 grams Route: PO; ap3 11:03 Follow up: Response: No adverse reaction ap3 Medication: 05:51 VIS not applicable for this client. aa9 Outcome: 09:53 Discharge ordered by . ms3 10:50 Discharged to home ambulatory. ap3 10:50 Condition: good 10:50 Discharge instructions given to patient, Instructed on discharge instructions, follow up and referral plans. medication usage, Demonstrated understanding of instructions, follow-up care, medications, Prescriptions given X 1. 11:03 Patient left the ED. ap3 Signatures: Dispatcher [employer] EDMS Alexi Montanez, RN RN jb4 Alexandra South RN RN ap3 Austen Dasilva DO DO ms3 Marilu Cox Aylin, RN RN aa9 Chris Addison MD MD rt Villegas, Rebecca rv1
--- NOTE | 2022-08-07 09:54 | EDPHYS ---
Physician Documentation [facility] Name: Alesia De Souza Age: 47 yrs Sex: Female : 1975 Arrival Date: 08/07/2022 Time: 05:31 Bed 8 Private MD: ED Physician Austen Dasilva HPI: 08/07 05:58 This 47 yrs old Female presents to ER via Ambulatory with complaints of Chest rt Pain, - burning. 05:58 The patient or guardian reports chest pain that is located primarily in the epigastric rt area. Onset: 8 hour(s) ago. The pain does not radiate. The chest pain is described as burning. Duration: The patient or guardian reports a single episode, that is still ongoing. Modifying factors: The symptoms are alleviated by nothing. the symptoms are aggravated by nothing. Severity of pain: At its worst the pain was moderate. Patient presents to the ED with a burning epigastric pain starting at about 10:00. It is nonradiating. She has had the symptoms previously, states that they were resolved with antacids, PPIs. The patient took a tramadol to no relief. The patient denies nausea but does report diarrhea. Denies other acute complaints at this time, symptoms are moderate severity, no other aggravating or alleviating factors.. 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 - Social history:: Smoking status: Patient reports the use of cigarette tobacco products, denies chronic smoking, but will smoke occasionally. ROS: 06:01 Constitutional: Negative for fever, chills, and weight loss, Eyes: Negative for injury, rt pain, redness, and discharge, Neck: Negative for injury, pain, and swelling, Cardiovascular: Negative for chest pain, palpitations, and edema, Respiratory: Negative for shortness of breath, cough, wheezing, and pleuritic chest pain, MS/Extremity: Negative for injury and deformity, Skin: Negative for injury, rash, and discoloration, Neuro: Negative for headache, weakness, numbness, tingling, and seizure, Psych: Negative for depression, anxiety, suicide ideation, homicidal ideation, and hallucinations. 06:01 Cardiovascular: Positive for chest pain, Negative for edema. 06:01 Abdomen/GI: Positive for abdominal pain, diarrhea. Exam: 05:55 ECG was reviewed by the Attending Physician. rt 06:01 Constitutional: This is a well developed, well nourished patient who is awake, alert, rt and in no acute distress. Head/Face: Normocephalic, atraumatic. Eyes: Pupils equal round and reactive to light, extra-ocular motions intact. Lids and lashes normal. Conjunctiva and sclera are non-icteric and not injected. Cornea within normal limits. Periorbital areas with no swelling, redness, or edema. Chest/axilla: Normal chest wall appearance and motion. Nontender with no deformity. No lesions are appreciated. Cardiovascular: Regular rate and rhythm with a normal S1 and S2. No gallops, murmurs, or rubs. Normal PMI, no JVD. No pulse deficits. Respiratory: Lungs have equal breath sounds bilaterally, clear to auscultation and percussion. No rales, rhonchi or wheezes noted. No increased work of breathing, no retractions or nasal flaring. 06:01 Skin: Warm, dry with normal turgor. Normal color with no rashes, no lesions, and no evidence of cellulitis. MS/ Extremity: Pulses equal, no cyanosis. Neurovascular intact. Full, normal range of motion. Neuro: Awake and alert, GCS 15, oriented to person, place, time, and situation. Cranial nerves II-XII grossly intact. Motor strength 5/5 in all extremities. Sensory grossly intact. Cerebellar exam normal. Normal gait. Psych: Awake, alert, with orientation to person, place and time. Behavior, mood, and affect are within normal limits. 06:01 Abdomen/GI: Newness to the epigastrium with mild guarding, no rebound, no abdominal distention.. Vital Signs: 05:47 BP 168 / 94; Pulse 83; Resp 35; Temp 98.4; Pulse Ox 100% ; rv1 05:47 BP 168 / 94; Pulse 86; Resp 29 S; Temp 98.4(O); Pulse Ox 100% on R/A; Weight 88.45 kg aa9 (R); Height 5 ft. 0 in. (152.40 cm) (R); 06:23 BP 171 / 97; Pulse 65; Resp 27 S; Pulse Ox 97% on R/A; aa9 08:41 BP 167 / 90; Pulse 65; Pulse Ox 99% on R/A; ap3 05:47 Body Mass Index 38.08 (88.45 kg, 152.40 cm) aa9 MDM: 05:39 Patient medically screened. rt 06:35 Differential diagnosis: acute myocardial infarction, esophagitis, gastritis, rt gastroesophageal reflux disease (GERD), pneumonia, pneumothorax, pulmonary embolus, stable angina. 09:54 Data reviewed: vital signs, nurses notes, lab test result(s), radiologic studies, and ms3 as a result, I will discharge patient. Counseling: I had a detailed discussion with the patient and/or guardian regarding: the historical points, exam findings, and any diagnostic results supporting the discharge/admit diagnosis, lab results, radiology results, the need for outpatient follow up, to return to the emergency department if symptoms worsen or persist or if there are any questions or concerns that arise at home. ED course: Discussed labs and CT findings with patient. Patient to follow-up with Dr. Byrnes and Dr. Green in 2 to 3 days. Patient understands and agrees with plan. All questions were answered. Return precautions discussed include worsening symptoms, or any other concerns. On reevaluation patient's abdomen is benign, patient is improved, alert and orient x4, in no apparent distress, speaking full sentences. 08/07 05:51 Order name: CBC with Diff; Complete Time: 07:53 rt 08/07 05:51 Order name: CMP; Complete Time: 07:53 rt 08/07 05:51 Order name: Lipase; Complete Time: 07:53 rt 08/07 05:51 Order name: UA MICROSCOPIC; Complete Time: 09:50 rt 08/07 05:51 Order name: Troponin High Sensitivity; Complete Time: 07:53 rt 08/07 05:51 Order name: Test, Serum; Complete Time: 07:53 rt 08/07 05:51 Order name: Urine Dipstick-Ancillary (obtain specimen); Complete Time: 09:36 rt 08/07 05:51 Order name: EKG; Complete Time: 05:52 rt 08/07 06:01 Order name: CT Abd/Pelvis - IV Contrast Only; Complete Time: 08:41 rt 08/07 09:35 Order name: Urine Dipstick-Ancillary; Complete Time: 09:50 EDMS 08/07 09:36 Order name: EKG Electrocardiogram EDMS 08/07 05:51 Order name: EKG - Nurse/Tech; Complete Time: 05:52 rt EC:55 Rate is 69 beats/min. Rhythm is regular, Normal Sinus Rhythm with No ectopy. QRS Malcolm rt is Normal. ID interval is normal. QRS interval is normal. QT interval is normal. No Q waves. T waves are Normal. No ST changes noted. Clinical impression: Normal ECG. Interpreted by me. Administered Medications: 06:21 Drug: ProTONIX (pantoprazole) 40 mg Route: IVP; Site: left hand; aa9 11:03 Follow up: Response: No adverse reaction ap3 06:22 Drug: GI Cocktail without - (Maalox Suspension 30 ml, Lidocaine Liquid 2 % 15 aa9 ml) Route: PO; 11:03 Follow up: Response: No adverse reaction ap3 08:31 Drug: Sucralfate Suspension 1 grams Route: PO; ap3 11:03 Follow up: Response: No adverse reaction ap3 Disposition Summary: 08/07/22 09:53 Discharge Ordered Location: Home ms3 Condition: Stable ms3 Diagnosis - Diverticulitis of large intestine without perforation or abscess without bleeding ms3 - Anemia, unspecified ms3 Followup: ms3 - With: Jose Miguel Byrnes DO - When: - Reason: Re-evaluation by your physician Followup: ms3 - With: Samson Norman MD - When: 2 - 3 days - Reason: Recheck today's complaints Discharge Instructions: - Discharge Summary Sheet ms3 - Anemia ms3 - Diverticulitis, [id number] ms3 Forms: - Medication Reconciliation Form ms3 - Thank You Letter ms3 - Antibiotic Education ms3 - Prescription Opioid Use ms3 Prescriptions: - Augmentin 875-125 mg Oral Tablet - take 1 tablet by ORAL route every 12 hours for 10 days; 20 tablet; Refills: 0, ms3 Product Selection Permitted Signatures: Dispatcher [employer] Aelxandra Butt RN RN ap3 Austen Dasilva DO DO ms3 Shantelle Johns RN RN aa9 Chris Addison MD MD rt
[2022-08-07 11:07] VITALS: TEMP 98.4
[2022-08-07 11:10] VITALS: BP 167/90; O2SAT 99
--- NOTE | 2022-08-07 12:47 | EKG ---
Test Date: 2022-08-07 Test Time: 05:45:09 Bar Welder: SAVANNAH MEASUREMENT RESULTS: Intervals: Rate: 69 VA: 146 QRSD: 96 QT: 398 QTc: 426 [place]: P: 48 VA: 146 QRS: 52 T: 67 INTERPRETIVE STATEMENTS: Normal sinus rhythm Normal ECG Compared to ECG 08/07/2022 05:44:44 Atrial premature complex(es) no longer present Aberrant conduction of supraventricular beat(s) no longer present Electronically Signed On 08-07-22 12:47:30 NITRATE OPERATOR by Nasir Germain
--- NOTE | 2022-08-07 12:48 | EKG ---
Test Date: 2022-08-07 Test Time: 05:44:44 Group Cio: SAVANNAH MEASUREMENT RESULTS: Intervals: Rate: 70 [place]: 152 QRSD: 96 QT: 398 QTc: 429 [place]: P: 44 WV: 152 QRS: 56 T: 56 INTERPRETIVE STATEMENTS: Sinus rhythm with premature atrial complexes with aberrant conduction Otherwise normal ECG Compared to ECG 06/02/2022 21:17:01 Atrial premature complex(es) now present Aberrant conduction of supraventricular beat(s) now present Incomplete right bundle-branch block no longer present Myocardial infarct finding no longer present Electronically Signed On 08-07-22 12:47:32 AUTO REPAIR TECHNICIAN by Nasir Germain
== END 2022-08-07 11:03 | disposition home or self-care (01) ==
LOC: ER 05:27
DX: K57.32 Diverticulitis of large intestine without perforation or abscess without bleeding (principal); D64.9 Anemia, unspecified; I10 Essential (primary) hypertension; E11.9 Type 2 diabetes mellitus without complications; F17.210 Nicotine dependence, cigarettes, uncomplicated
CPT/HCPCS: 93005 ×2; 85025; 36415; 84703; 84484; 83690; 80053; 74177; Q9967; C9113; 81003; 81015; 96374; 99284

== ENCOUNTER 2023-02-07 12:10 | Emergency (ER) | payer BC ==
--- OUTSIDE RECORDS SUMMARY | 2023-02-07 12:15 | XMS REPORT | Continuity of Care Document ---
:1975 Author Organization [facility] t Address [address] [place] [address] [place] [id number] Care Team Providers Name Role Phone Asked, No Pcp Primary Care Physician Unavailable SHERWIN AMBROSE Attending Clinician Unavailable FOREIGN OBRIEN Attending Clinician Unavailable Sherwin Ambrose MD Attending Clinician Doctor Unassigned, Disney Attending Clinician Unavailable DAMIAN MEDINA Attending Clinician Unavailable SOFY LAMB Attending Clinician Unavailable Damian Medina MD Attending Clinician Sofy Lamb MD Attending Clinician Sarah Dale MA Attending Clinician Unavailable Linda Cash RN Attending Clinician Unavailable Only, Ang Db Test Attending Clinician Unavailable Malachi Aguayo Attending Clinician Willi Serrato RN Attending Clinician Unavailable DR YASMIN BABCOCK Attending Clinician Unavailable Vanda Wheeler RN Attending Clinician Unavailable [facility] Attending Clinician Unavailable Joana Gastelum Attending Clinician JOANA SCHOFIELD Attending Clinician Unavailable SHERWIN AMBROSE Admitting Clinician Unavailable DR YASMIN BABCOCK Admitting Clinician Unavailable Payers Payer Name Policy Type Policy Number Effective Date Expiration Date Jane marcano [employer] [id number] 2017 [facility] [place] 00:00:00 [employer] [facility] [facility] [id number] 2017 00:00:00 Problems Condition Condition Condition Status Onset Resolution Last Treating Co mments Source Name Details Category Date Date Treatment Clinician Date No known No known Disease Unive rs active active ity of problems problems [facility] Allergies, Adverse Reactions, Alerts Allergy Allergy Status Severity Reaction(s) Onset Inactive Treating Comm ents Source Name Type Date Date Clinician NO KNOWN Drug Active Univers ALLERGIE Class ity of S [facility] No Known DA Active [facility] s Social History Social Habit Start Date Stop Date Quantity Comments Source History of tobacco Cigarette Smoker [facility] use [facility] Gender identity [facility] Exposure to 2022-10-31 2022-11-10 Not sure University SARS-CoV-2 (event) 00:00:00 14:02:00 [facility] Alcohol intake 2022-11-10 2022-11-10 Current drinker Unive rsity of 00:00:00 00:00:00 of alcohol [facility] (finding) [place] Tobacco Comment 2022-09-01 2022-09-01 3 cigs a day Univers ity of 00:00:00 00:00:00 [facility] Alcohol Comment 2022-09-01 2022-09-01 rare Universit y of 00:00:00 00:00:00 [facility] Tobacco use and 2022-09-01 2022-09-01 Smokeless Universit y of exposure 00:00:00 00:00:00 tobacco non-user [facility] dical Branch Cigarettes smoked 2021-08-25 2021-08-25 Univers ity of current (pack per 00:00:00 00:00:00 ) - Reported Branch Cigarette 2021-08-25 2021-08-25 University of pack-years 00:00:00 00:00:00 [facility] Sex Ass[birth year] At [birth year] [facility] Smoking Status Start Date Stop Date Source Tobacco smoking consumption Meth [facility] unknown Light tobacco smoker 2022-09-01 00:00:00 Univers ity of [facility] Medications Ordered Filled Start Stop Current Ordering Indication Dosage Frequency Signature Comments Components Source Medication Medication Date Date Medication? Clinician (SIG) Name Name [facility] 2021-09 Yes Univers 0.25 mg or 2-17 ity of 0.5 mg(2 00:00: [place] mg/1.5 mL) 00 [facility] 2021-09 Yes Univers 0.25 mg or 2-17 ity of 0.5 mg(2 00:00: [place] mg/1.5 mL) [facility] 2021-09 Yes Univers 0.25 mg or 2-17 ity of 0.5 mg(2 00:00: [place] mg/1.5 mL) 00 [facility] 2021-09 Yes Univers 0.25 mg or 2-17 ity of 0.5 mg(2 00:00: [place] mg/1.5 mL) [facility] 2021-09 Yes Univers 0.25 mg or 2-17 ity of 0.5 mg(2 00:00: [place] mg/1.5 mL) [facility] 2021-09 Yes Univers 0.25 mg or 2-17 ity of 0.5 mg(2 00:00: [place] mg/1.5 mL) [facility] 2021-09 Yes Univers 0.25 mg or 2-17 ity of 0.5 mg(2 00:00: [place] mg/1.5 mL) [facility] 2021-09 Yes Univers 0.25 mg or 2-17 ity of 0.5 mg(2 00:00: [place] mg/1.5 mL) [facility] 2021-09 Yes Univers 0.25 mg or 2-17 ity of 0.5 mg(2 00:00: [place] mg/1.5 mL) [facility] traMADoL 50 2021-09 Yes Univer s mg tablet 1-11 ity of 00:00: [facility] traMADoL 50 2021-09 Yes Univer s mg tablet 1-11 ity of 00:00: [facility] traMADoL 50 2021-09 Yes Univer s mg tablet 1-11 ity of 00:00: [place] 00 [facility] traMADoL 50 2021-09 Yes Univer s mg tablet 1-11 ity of 00:00: Medical Branch traMADoL 50 2021-09 Yes Univer s mg tablet 1-11 ity of 00:00: Medical Branch traMADoL 50 2021-09 Yes Univer s mg tablet 1-11 ity of 00:00: [place] [facility] traMADoL 50 2021-09 Yes Univer s mg tablet 1-11 ity of 00:00: Medical Branch traMADoL 50 2021-09 Yes Univer s mg tablet 1-11 ity of 00:00: [place] [facility] traMADoL 50 2021-09 Yes Univer s mg tablet 1-11 ity of 00:00: [place] [facility] traMADoL 50 2021-09 Yes Univer s mg tablet 1-11 ity of 00:00: Medical Branch glimepiride 2021-09 Yes Univer s 1 mg tablet 0-10 ity of 00:00: [place] [facility] pantoprazol 2021-09 Yes Univer s e 40 mg EC 0-10 ity of tablet 00:00: [place] [facility] glimepiride 2021-09 Yes Univer s 1 mg tablet 0-10 ity of 00:00: [place] [facility] pantoprazol 2021-09 Yes Univer s e 40 mg EC 0-10 ity of tablet 00:00: [place] [facility] glimepiride 2021-09 Yes Univer s 1 mg tablet 0-10 ity of 00:00: [place] [facility] pantoprazol 2021-09 Yes Univer s e 40 mg EC 0-10 ity of tablet 00:00: [place] [facility] glimepiride 2021-09 Yes Univer s 1 mg tablet 0-10 ity of 00:00: [place] [facility] pantoprazol 2021-09 Yes Univer s e 40 mg EC 0-10 ity of tablet 00:00: [place] [facility] glimepiride 2021-09 Yes Univer s 1 mg tablet 0-10 ity of 00:00: [place] [facility] pantoprazol 2021-09 Yes Univer s e 40 mg EC 0-10 ity of tablet 00:00: Medical Branch glimepiride 2021-09 Yes Univer s 1 mg tablet 0-10 ity of 00:00: Medical Branch pantoprazol 2021- Yes Univer s e 40 mg EC 0-10 ity of tablet 00:00: [place] [facility] glimepiride 2021-09 Yes Univer s 1 mg tablet 0-10 ity of 00:00: Medical Branch pantoprazol 1 Yes Univer s e 40 mg EC 0-10 ity of tablet 00:00: [place] [facility] glimepiride 2021- Yes Univer s 1 mg tablet 0-10 ity of 00:00: [place] [facility] pantoprazol 2021-09 Yes Univer s e 40 mg EC 0-10 ity of tablet 00:00: [place] [facility] glimepiride 2021-09 Yes Univer s 1 mg tablet 0-10 ity of 00:00: [place] [facility] pantoprazol 2021-09 Yes Univer s e 40 mg EC 0-10 ity of tablet 00:00: [place] [facility] glimepiride 2021-09 Yes Univer s 1 mg tablet 0-10 ity of 00:00: [place] [facility] pantoprazol 2021-09 Yes Univer s e 40 mg EC 0-10 ity of tablet 00:00: [place] [facility] foLIC acid 2-0 Yes Univers 1 mg tablet 05-16 ity of 00:00: [place] [facility] foLIC acid 2-0 Yes Univers 1 mg tablet 05-16 ity of 00:00: [place] [facility] foLIC acid 2-0 Yes Univers 1 mg tablet 05-16 ity of 00:00: [place] [facility] foLIC acid 2-0 Yes Univers 1 mg tablet 05-16 ity of 00:00: [place] [facility] foLIC acid 2022-0 Yes Univers 1 mg tablet - ity of 00:00: [place] [facility] foLIC acid 2-0 Yes Univers 1 mg tablet 05-16 ity of 00:00: [place] [facility] foLIC acid 2022-0 Yes Univers 1 mg tablet 05-16 ity of 00:00: [place] [facility] foLIC acid 2022-0 Yes Univers 1 mg tablet 05-16 ity of 00:00: [place] [facility] foLIC acid 2-0 Yes Univers 1 mg tablet 05-16 ity of 00:00: [facility] foLIC acid Yes Univers 1 mg tablet 05-16 ity of 00:00: [facility] methotrexat Yes Take by Uni vers e 2.5 mg 3-22 mouth ity of tablet 00:00: [facility] methotrexat Yes Take by Uni vers e 2.5 mg 3-22 mouth ity of tablet 00:00: [facility] methotrexat Yes Take by Uni vers e 2.5 mg 3-22 mouth ity of tablet 00:00: [facility] methotrexat Yes Take by Uni vers e 2.5 mg 3-22 mouth ity of tablet 00:00: [facility] methotrexat Yes Take by Uni vers e 2.5 mg 3-22 mouth ity of tablet 00:00: [facility] methotrexat Yes Take by Uni vers e 2.5 mg 3-22 mouth ity of tablet 00:00: [facility] methotrexat Yes Take by Uni vers e 2.5 mg 3-22 mouth ity of tablet 00:00: [facility] methotrexat Yes Take by Uni vers e 2.5 mg 3-22 mouth ity of tablet 00:00: [place] [facility] methotrexat Yes Take by Uni vers e 2.5 mg 3-22 mouth ity of tablet 00:00: [facility] methotrexat Yes Take by Uni vers e 2.5 mg 3-22 mouth ity of tablet 00:00: [place] [facility] fluconazole 2021- No [id number] 150mg Take 1 Univers 150 mg 1-07 -12 tablet by ity of tablet 00:00: 05:59 mouth [place] 00 :00 every 72 Medical ([facility]) hours for 2 doses. fluconazole 2020-09- No [id number] 150mg Take 1 Univers (DIFLUCAN) 2-16 12-21 tablet by ity of 150 mg 00:00: 05:59 mouth [place] tablet 00 :00 every 72 Medical ([facility]) hours for 2 doses. fluconazole 2020-09- No [id number] 150mg Take 1 Univers (DIFLUCAN) 2-16 12-21 tablet by ity of 150 mg 00:00: 05:59 mouth [place] tablet 00 :00 every 72 Medical ([facility] wo) hours for 2 doses. losartan-hy 2020-0 Yes Univer s drochloroth 5-08 ity of iazide 00:00: [place] 100-25 mg 00 Medical per tablet Branch metFORMIN 2020-0 Yes Univers 500 mg 5-08 ity of tablet 00:00: [place] 00 Medical Branch pravastatin 2020-0 Yes Univer s 40 mg 5-08 ity of tablet 00:00: [place] [address] Medical Branch losartan-hy 2020-0 Yes Univer s drochloroth 5-08 ity of iazide 00:00: [place] 100-25 mg 00 Medical per tablet Branch metFORMIN 2020-0 Yes Univers 500 mg 5-08 ity of tablet 00:00: [place] [address] Medical Branch pravastatin 2020-0 Yes Univer s 40 mg 5-08 ity of tablet 00:00: [place] [address] Medical Branch losartan-hy 2020-0 Yes Univer s drochloroth 5-08 ity of iazide 00:00: [place] 100-25 mg 00 Medical per tablet Branch metFORMIN 2020-0 Yes Univers 500 mg 5-08 ity of tablet 00:00: [place] [address] Medical Branch pravastatin 2020-0 Yes Univer s 40 mg 5-08 ity of tablet 00:00: [place] [address] Medical Branch losartan-hy 2020-0 Yes Univer s drochloroth 5-08 ity of iazide 00:00: [place] 100-25 mg 00 Medical per tablet Branch metFORMIN 2020-0 Yes Univers 500 mg 5-08 ity of tablet 00:00: [place] [address] Medical Branch pravastatin 2020-0 Yes Univer s 40 mg 5-08 ity of tablet 00:00: [place] [address] Medical Branch losartan-hy 2020-0 Yes Univer s drochloroth 5-08 ity of iazide 00:00: [place] 100-25 mg 00 Medical per tablet Branch metFORMIN 2020-0 Yes Univers 500 mg 5-08 ity of tablet 00:00: [place] [address] Medical Branch pravastatin 2020-0 Yes Univer s 40 mg 5-08 ity of tablet 00:00: [place] [address] Medical Branch losartan-hy 2020-0 Yes Univer s drochloroth 5-08 ity of iazide 00:00: [place] 100-25 mg 00 Medical per tablet Branch metFORMIN 2020-0 Yes Univers 500 mg 5-08 ity of tablet 00:00: [place] 00 Medical Branch pravastatin 2020-0 Yes Univer s 40 mg 5-08 ity of tablet 00:00: [place] 00 Medical Branch losartan-hy 2020-0 Yes Univer s drochloroth 5-08 ity of iazide 00:00: [place] 100-25 mg 00 Medical per tablet Branch metFORMIN 2020-0 Yes Univers 500 mg 5-08 ity of tablet 00:00: [place] [address] Medical Branch pravastatin 2020-0 Yes Univer s 40 mg 5-08 ity of tablet 00:00: [place] [address] Medical Branch losartan-hy 2020-0 Yes Univer s drochloroth 5-08 ity of iazide 00:00: [place] 100-25 mg 00 Medical per tablet Branch metFORMIN 2020-0 Yes Univers 500 mg 5-08 ity of tablet 00:00: [place] [address] Medical Branch pravastatin 2020-0 Yes Univer s 40 mg 5-08 ity of tablet 00:00: [place] [address] Medical Branch losartan-hy 2020-0 Yes Univer s drochloroth 5-08 ity of iazide 00:00: [place] 100-25 mg 00 Medical per tablet Branch metFORMIN 2020-0 Yes Univers 500 mg 5-08 ity of tablet 00:00: [place] [address] Medical Branch pravastatin 2020-0 Yes Univer s 40 mg 5-08 ity of tablet 00:00: [place] [address] Medical Branch losartan-hy 2020-0 Yes Univer s drochloroth 5-08 ity of iazide 00:00: [place] 100-25 mg 00 Medical per tablet Branch metFORMIN 2020-0 Yes Univers 500 mg 5-08 ity of tablet 00:00: [place] [address] Medical Branch pravastatin 2020-0 Yes Univer s 40 mg 5-08 ity of tablet 00:00: [place] [address] Medical Branch losartan-hy 2020-0 Yes Univer s drochloroth 5-08 ity of iazide 00:00: [place] 100-25 mg 00 Medical per tablet Branch metFORMIN 2020-0 Yes Univers 500 mg 5-08 ity of tablet 00:00: [place] [address] Medical Branch pravastatin 2020-0 Yes Univer s 40 mg 5-08 ity of tablet 00:00: [place] [address] Medical Branch losartan-hy 2020-0 Yes Univer s drochloroth 5-08 ity of iazide 00:00: [place] 100-25 mg 00 Medical per tablet Branch metFORMIN 2020-0 Yes Univers 500 mg 5-08 ity of tablet 00:00: [place] 00 Medical Branch pravastatin 2020-0 Yes Univer s 40 mg 5-08 ity of tablet 00:00: [place] 00 Medical Branch losartan-hy 2020-0 Yes Univer s drochloroth 5-08 ity of iazide 00:00: [place] 100-25 mg 00 Medical per tablet Branch metFORMIN 2020-0 Yes Univers 500 mg 5-08 ity of tablet 00:00: [place] 00 Medical Branch pravastatin 2020-0 Yes Univer s 40 mg 5-08 ity of tablet 00:00: [place] 00 Medical Branch losartan-hy 2020-0 Yes Univer s drochloroth 5-08 ity of iazide 00:00: [place] 100-25 mg 00 Medical per tablet Branch metFORMIN 2020-0 Yes Univers 500 mg 5-08 ity of tablet 00:00: [place] 00 Medical Branch pravastatin 2020-0 Yes Univer s 40 mg 5-08 ity of tablet 00:00: [place] 00 Medical Branch losartan-hy 2020-0 Yes Univer s drochloroth 5-08 ity of iazide 00:00: [place] 100-25 mg 00 Medical per tablet Branch metFORMIN 2020-0 Yes Univers 500 mg 5-08 ity of tablet 00:00: [place] 00 Medical Branch pravastatin 2020-0 Yes Univer s 40 mg 5-08 ity of tablet 00:00: [place] 00 Medical Branch losartan-hy 2020-0 Yes Univer s drochloroth 5-08 ity of iazide 00:00: [place] 100-25 mg 00 Medical per tablet Branch metFORMIN 2020-0 Yes Univers 500 mg 5-08 ity of tablet 00:00: [place] 00 Medical Branch pravastatin 2020-0 Yes Univer s 40 mg 5-08 ity of tablet 00:00: [place] 00 Medical Branch Immunizations Ordered Filled Immunization Date Status Comments [facility] e Immunization Name Name Influenza Virus 2022-09-01 Completed Universit y of Vaccine Quad IM, 00:00:00 [facility] dical Preserv and ABX Branch Free 6 MO-64 YRS Influenza Virus 2022-09-01 Completed Universit y of Vaccine Quad IM, 00:00:00 [facility] dical Preserv and ABX Branch Free 6 MO-64 YRS Influenza Virus 2022-09-01 Completed Universit y of Vaccine Quad IM, 00:00:00 [place] [facility] dical Preserv and ABX Branch Free 6 MO-64 YRS Influenza Virus 2022-09-01 Completed Universit y of Vaccine Quad IM, 00:00:00 [place] Me dical Preserv and ABX Branch Free 6 MO-64 YRS Influenza Virus 2022-09-01 Completed Universit y of Vaccine Quad IM, 00:00:00 [place] Me dical Preserv and ABX Branch Free 6 MO-64 YRS Influenza Virus 2022-09-01 Completed Universit y of Vaccine [facility] IM, 00:00:00 [place] Me dical Preserv and ABX Branch Free 6 MO-64 YRS Influenza Virus 2022-09-01 Completed Universit y of Vaccine Quad IM, 00:00:00 [place] Me dical Preserv and ABX Branch Free 6 MO-64 YRS Influenza Virus 2022-09-01 Completed Universit y of Vaccine [facility] IM, 00:00:00 [place] Me dical Preserv and ABX Branch Free 6 MO-64 YRS Influenza Virus 2022-09-01 Completed Universit y of Vaccine Quad IM, 00:00:00 [place] Me dical Preserv and ABX Branch Free 6 MO-64 YRS SARS-COV-2 COVID-19 2020-12-30 Completed Unive rsity of PFIZER VACCINE 00:00:00 [facility] SARS-COV-2 COVID-19 2020-12-30 Completed Unive rsity of PFIZER VACCINE 00:00:00 [facility] SARS-COV-2 COVID-19 2020-12-30 Completed Unive rsity of PFIZER VACCINE 00:00:00 [facility] SARS-COV-2 COVID-19 2020-12-30 Completed Unive rsity of PFIZER VACCINE 00:00:00 [facility] SARS-COV-2 COVID-19 2020-12-30 Completed Unive rsity of PFIZER VACCINE 00:00:00 [facility] SARS-COV-2 COVID-19 2020-12-30 Completed Unive rsity of PFIZER VACCINE 00:00:00 [facility] SARS-COV-2 COVID-19 2020-12-30 Completed Unive rsity of PFIZER VACCINE 00:00:00 [facility] SARS-COV-2 COVID-19 2020-12-30 Completed Unive rsity of PFIZER VACCINE 00:00:00 [facility] SARS-COV-2 COVID-19 2020-12-30 Completed Unive rsity of PFIZER VACCINE 00:00:00 [facility] SARS-COV-2 COVID-19 2020-12-30 Completed Unive rsity of PFIZER VACCINE 00:00:00 [facility] SARS-COV-2 COVID-19 2020-12-30 Completed Unive rsity of PFIZER VACCINE 00:00:00 [facility] SARS-COV-2 COVID-19 2020-12-30 Completed Unive rsity of PFIZER VACCINE 00:00:00 [facility] SARS-COV-2 COVID-19 2020-12-30 Completed Unive rsity of PFIZER VACCINE 00:00:00 [facility] SARS-COV-2 COVID-19 2020-12-30 Completed Unive rsity of PFIZER VACCINE 00:00:00 [facility] SARS-COV-2 COVID-19 2020-12-30 Completed Unive rsity of PFIZER VACCINE 00:00:00 [facility] SARS-COV-2 COVID-19 2020-12-30 Completed Unive rsity of PFIZER VACCINE 00:00:00 [facility] SARS-COV-2 COVID-19 2020-12-09 Completed Unive rsity of PFIZER VACCINE 00:00:00 [facility] SARS-COV-2 COVID-19 2020-12-09 Completed Unive rsity of PFIZER VACCINE 00:00:00 [facility] SARS-COV-2 COVID-19 2020-12-09 Completed Unive rsity of PFIZER VACCINE 00:00:00 [facility] SARS-COV-2 COVID-19 2020-12-09 Completed Unive rsity of PFIZER VACCINE 00:00:00 [facility] SARS-COV-2 COVID-19 2020-12-09 Completed Unive rsity of PFIZER VACCINE 00:00:00 [facility] SARS-COV-2 COVID-19 2020-12-09 Completed Unive rsity of PFIZER VACCINE 00:00:00 [facility] SARS-COV-2 COVID-19 2020-12-09 Completed Unive rsity of PFIZER VACCINE 00:00:00 [facility] SARS-COV-2 COVID-19 2020-12-09 Completed Unive rsity of PFIZER VACCINE 00:00:00 [facility] SARS-COV-2 COVID-19 2020-12-09 Completed Unive rsity of PFIZER VACCINE 00:00:00 [facility] SARS-COV-2 COVID-19 2020-12-09 Completed Unive rsity of PFIZER VACCINE 00:00:00 [facility] SARS-COV-2 COVID-19 2020-12-09 Completed Unive rsity of PFIZER VACCINE 00:00:00 [facility] SARS-COV-2 COVID-19 2020-12-09 Completed Unive rsity of PFIZER VACCINE 00:00:00 [facility] SARS-COV-2 COVID-19 2020-12-09 Completed Unive rsity of PFIZER VACCINE 00:00:00 [facility] SARS-COV-2 COVID-19 2020-12-09 Completed Unive rsity of PFIZER VACCINE 00:00:00 [facility] SARS-COV-2 COVID-19 2020-12-09 Completed Unive rsity of PFIZER VACCINE 00:00:00 [facility] SARS-COV-2 COVID-19 2020-12-09 Completed Unive rsity of PFIZER VACCINE 00:00:00 [facility] Vital Signs Vital Name Observation Time Observation Value Comments Source Systolic blood 2022-09-01 19:17:00 119 mm[Hg] Univer sity of pressure [facility] Diastolic blood 2022-09-01 19:17:00 82 mm[Hg] Unive rsity of pressure [facility] Heart rate 2022-09-01 19:17:00 76 /min [facility] Body temperature 2022-09-01 19:17:00 36.67 Hiral [facility] Body weight 2022-09-01 19:17:00 88.406 kg [facility] BMI 2022-09-01 19:17:00 38.06 kg/m2 [facility] BMI 2021-08-25 22:12:00 37.32 kg/m2 [facility] Systolic blood 2021-08-25 22:12:00 113 mm[Hg] Univer sity of pressure [facility] Diastolic blood 2021-08-25 22:12:00 78 mm[Hg] Unive rsity of [facility] Heart rate 2021-08-25 22:12:00 96 /min [facility] Body temperature 2021-08-25 22:12:00 36.83 Hiral [facility] Respiratory rate 2021-08-25 22:12:00 18 /min [facility] Body height 2021-08-25 22:12:00 152.4 cm [facility] Body weight 2021-08-25 22:12:00 86.682 kg [facility] Height 2020-07-30 04:10:00 152.4 CM Weight 2020-07-30 04:10:00 96.16 KG Height 2020-07-29 13:54:00 152.4 CM Weight 2020-07-29 13:54:00 94.8 KG Procedures Procedure Date / Time Performing Clinician Source Performed BI HI GUIDED CORE 2022-12-05 19:08:00 Sherwin Ambrose [facility] BREAST BIOPSY LEFT [facility] BI ULTRASOUND BREAST 2022-11-10 21:08:45 Sherwin Ambrose [facility] COMPLETE LEFT [facility] BI DESMOND BASINS LEFT 2022-11-10 21:08:45 Sherwin Ambrose [facility] BI DIAGNOSTIC 2022-11-10 20:46:05 Sherwin Ambrose [facility] [place] TOMOSYNTHESIS LEFT [facility] ASSIGNMENT OF BENEFITS 2022-10-13 20:03:14 Doctor Unassigned, No [facility] FLU VACC ([id number]), 6 2022-09-01 19:33:08 Sherwin Ambrose [facility] MO-64 YRS, .5ML, IM, Medical Bra nch QUAD (FLUCELVAX) ASSIGNMENT OF BENEFITS 2022-09-01 18:56:39 Doctor Unassigned, No [facility] NM HEPATOBILIARY 2022-07-12 15:08:18 Damian Medina [facility] PAP SMEAR-LIQUID 2021-08-25 22:29:00 Sofy Lamb [facility] AUTHORIZATION TO RELEASE 2021-08-25 06:01:00 Doctor Unassigned, No University [facility] [place] [facility] PHI TO [facility] Name Medical Branch EXCISION OF LEFT FOOT 2020-07-30 00:00:[address] [facility] Plan of Care Planned Activity Planned Date Details Comments Source Future Scheduled 2022-12-12 Hepatitis C screening [facility] Test 12:47:19 (procedure) [code = [id number]] Future Scheduled 2022-12-12 Screening for [facility] Test 12:47:19 malignant neoplasm of cervix (procedure) [code = [id number]] Future Scheduled 2022-12-12 [facility] Test 12:47:19 SCREENING [code = BREAST CANCER SCREENING] Future Scheduled 2022-12-12 COVID-19 VACCINE (3 - Me [facility] Test 12:47:19 Booster for Pfizer series) [code = COVID-19 VACCINE (3 - Booster for Pfizer series)] Future Scheduled 2022-12-12 COLONOSCOPY SCREENING [facility] Test 12:47:19 [code = COLONOSCOPY SCREENING] Future Scheduled 2022-12-12 [facility]ACCINE [facility] 12:47:19 [code = INFLUENZA VACCINE] Future Scheduled 2022-08-22 Hepatitis C screening [facility] Test 14:53:24 (procedure) [code = [id number]] Future Scheduled 2022-08-22 BREAST CANCER [facility] Test 14:53:24 SCREENING [code = BREAST CANCER SCREENING] Future Scheduled 2022-08-22 COVID-19 VACCINE (3 - Me [facility] Test 14:53:24 Booster for Pfizer series) [code = COVID-19 VACCINE (3 - Booster for Pfizer series)] Future Scheduled 2022-08-22 COLONOSCOPY SCREENING [facility] Test 14:53:24 [code = COLONOSCOPY SCREENING] Future Scheduled 2022-08-22 IN[facility]ZA VACCINE [facility] 14:53:24 [code = INFLUENZA VACCINE] Future Scheduled 2022-07-17 HEPATITIS B VACCINES [facility] Test 12:57:24 (1 of 3 - 3-dose series) [code = HEPATITIS B VACCINES (1 of 3 - 3-dose series)] Future Scheduled 2022-07-17 Hepatitis C screening [facility] Test 12:57:24 (procedure) [code = 049029748] Future Scheduled 2022-07-17 Screening for [facility] Test 12:57:24 malignant neoplasm of cervix (procedure) [code = 819821903] Future Scheduled 2022-07-17 BREAST CANCER [facility] Test 12:57:24 SCREENING [code = BREAST CANCER SCREENING] Future Scheduled 2022-07-17 COVID-19 VACCINE (3 - Me [facility] Test 12:57:24 Booster for Pfizer series) [code = COVID-19 VACCINE (3 - Booster for Pfizer series)] Future Scheduled 2022-07-17 COLONOSCOPY SCREENING [facility] Test 12:57:24 [code = COLONOSCOPY SCREENING] Future Scheduled 2022-07-17 INFLUENZA VACCINE Method [facility] Test 12:57:24 [code = INFLUENZA VACCINE] Encounters Start End Encounter Admission Attending Care Care Encounter Source Date/Time Date/Time Type Type Clinicians Facility Department ID 2022-08-17 Outpatient [facility] [id number] [place] 12:35:15 [id number] Health 2022-12-26 2022-12-26 Outpatient Chaya OBRIEN [facility] [id number] Univers 15:00:00 15:00:00 [facility]22-12-05 2022-12-05 Outpatient Chaya AMBROSE [facility] [id number] Univers 12:38:50 23:59:00 ity [facility] 2022-12-05 2022-12-05 [facility] 1.2.840.114 [id number] Univers 12:38:50 23:59:00 Encounter Cam SPECIALTY 350.1.13.10 [place] [phone] [address] 2022-11-10 2022-11-10 [facility] 1.2.840.114 [id number] Univers 14:08:22 23:59:00 Encounter Cam SPECIALTY 350.1.13.10 [place] [id number] [address] 2022-11-10 2022-11-10 Outpatient Chaya [facility] [id number] Univers 14:03:19 14:07:00 ity of [facility] 2022-11-10 2022-11-10 [facility] Sherwin Ambrose [facility] 1.2.840.114 [id number] Univers 14:03:19 14:07:00 Encounter Cam SPECIALTY 350.1.13.10 ity of CARE 4.2.7.2.686 [place] [facility] AT [phone] [place]ical VICTORY 800 [facility] 2022-11-10 2022-11-10 Case Sherwin Ambrose [facility] 1.2.656.263 [id number] Univers 00:00:00 00:00:00 Management Cam [place] 350.1.13.10 it[place] PROF[place] [id number] [place] NAL 134 [facility] 2022-10-18 2022-10-18 [facility] Sherwin Ambrose [facility] 1.2.975.559 [id number] Univers 00:00:00 00:00:00 Management Cam [place] 350.1.13.10 [facility] 4.2.7.2.[place] [phone] [place] NAL [address] [place] [address] 2022-10-13 2022-10-13 Outpatient R SHERWIN AMBROSE [facility] [id number] Univers 14:06:02 23:59:00 ity of [facility] 2022-10-13 2022-10-13 [facility] Sherwin Ambrose [facility] 1.2.840.114 [id number] Univers 14:06:02 23:59:00 Encounter Cam [place] 350.1.13.10 ity of [place] 4.2.7.2.686 [place] [facility] [phone] [facility] [address] 2022-10-13 2022-10-13 Orders Doctor DARRION 1.2.840.114 [id number] Univers 00:00:00 00:00:00 Only Unassigned, EBONY 350.1.13.10 ity of [place] [facility] 4.2.7.2.686 Robert as [phone] [facility] [address] 2022-09-27 2022-09-27 Outpatient JENNIFER MEDINA TERI [address] 08:40:00 12:20:00 DAMIAN 2022-09-01 2022-09-01 Outpatient R AMBROSENERIEN [facility] [id number] Univers 13:00:00 13:38:48 ity of [facility] 2022-09-01 2022-09-01 Office Sherwin Ambrose [facility] 1.2.840.114 [id number] Univers 13:00:00 13:38:48 Visit Heri BARRERA 350.1.13.10 it y of [place]2.[place] [id number] [facility] [address] 2022-09-01 2022-09-01 Orders Doctor DARRION 1.2.840.114 [id number] Univers 00:00:00 00:00:00 Only Unassigned, EBONY 350.1.13.10 ity of [place] [facility] 4.2.7.2.686 Robert as [id number] [place] [address] [place] 2022-08-29 2022-08-29 Outpatient R SOFY LAMB [facility] [id number] Univers 14:00:00 14:00:00 ity of [facility] 2022-07-12 2022-07-12 [facility], 1.2.840.1 [id number] Methodi 08:01:02 23:59:00 Encounter Damian 94100.1.[address] [place] 3.430.2.7 Hospit a .3.129773 l .8 2022-07-12 2022-07-12 [facility], 1.2.840.1 [id number] Methodi 08:01:02 23:59:00 Encounter Damian 82824.1.[address] [place] 3.430.2.7 Hospit a .3.664809 l .8 2022-07-12 2022-07-12 Travel 1.2.840.1 1.2.828.145 [id number] Methodi 00:00:00 00:00:[address] 3.430.2.7 0.2.7.3.698 Ho spita .3.180507 084.8 l .8 2022-07-12 2022-07-12 Travel 1.2.840.1 1.2.105.552 [id number] Methodi 00:00:00 00:00:[address] 3.430.2.7 0.2.7.3.698 Ho spita .3.663306 084.8 l .8 2022-06-08 2022-06-08 Transcribe Daram, 1.2.840.1 [id number] Methodi 00:00:00 00:00:00 Orders Damian 25904.1.[address] [place] 3.430.2.7 Hospit a .3.639054 l .8 2022-06-08 2022-06-08 Transcribe Daram, 1.2.840.1 [id number] Methodi 00:00:00 00:00:00 Orders Damian 85597.1.[address] [place] 3.430.2.7 Hospit a .3.040393 l .8 2021-12-19 2021-12-19 Telephone Sofy Lamb AGUILAR 1.2.840.11 [id number] Univers 00:00:00 00:00:00 HOLLY 350.1.13.10 it y of WOMEN'S 4.2.7.2.686 [facility] [id number] [address] 2021-09-16 2021-09-16 Telephone Sofy Lamb AGUILAR 1.2.840.11 [id number] Univers 00:00:00 00:00:00 HOLLY 350.1.13.10 it [place] [facility] [id number] [address] 2021-09-01 2021-09-01 Telephone Sofy Lamb [place] 1.2.840.11 [id number] Univers 00:00:00 00:00:00 HOLLY 350.1.13.10 it y of WOMEN'S 4.2.7.2.686 [facility] [id number] [address] 2021-08-25 2021-08-25 Outpatient R SOFY LAMB [facility] [id number] Univers 15:30:00 16:43:33 ity of [facility] 2021-08-25 2021-08-25 Outpatient R SOFY LAMB [facility] [id number] Univers 15:30:00 16:43:33 ity of [facility] 2021-08-25 2021-08-25 Office Sofy Lamb [facility] 1.2.840.114 [id number] Univers 15:30:00 16:43:33 Visit HO[place] 350.1.13.10 it y of [place]2.[place] [id number] [facility] [address] 2021-08-25 2021-08-25 Orders Doctor DARRION 1.2.840.114 [id number] Univers 00:00:00 00:00:00 Only Unassigned, EBONY 350.1.13.10 ity of [place] [facility] 4.2.7.2.686 Robert as [id number] [facility] [address] 2021-07-25 2021-07-25 Pre Visit ADITYA Dale 1.2.112.900 [id number] Univers 00:00:00 00:00:00 Outreach Sarah HAMM 350.1.13.10 i [place].2.[place] [id number] [facility] [address] 2021-05-12 2021-05-12 Letter DARRION Cash 1.2.840.114 [id number] Univers 00:00:00 00:00:00 (Out) Linda BECK 350.1.13.10 it y of HOSPITAL 4.2.7.2.686 [place] as [id number] [facility] [address] 2021-05-10 2021-05-10 Laboratory Only, Ang Db Test [facility] 1.2.8 40.114 [id number] Univers 11:29:32 11:39:32 Only Malachi [facility] 350.1.13.10 ity of [place] 4.2.7.2.686 Robert as Tan?Blea [id number] [address] Medical Office Building 2021-05-10 2021-05-10 Outpatient R [facility] [id number] Univers 11:15:00 11:15:00 ity of [facility] 2021-02-21 2021-02-21 Nurse DARRION Serrato 1.2.284.065 [id number] Univers 00:00:00 00:00:00 Triage Willi BECK 350.1.13.10 it y of HOSPITAL 4.2.7.2.686 [place] as [id number] [address] 2020-07-30 2020-07-30 Outpatient C SADIQ [facility] [id number] 04:00:00 [facility]30[facility] 2020-01-17 2020-01-17 Telephone DARRION Wheeler 1.2.840.114 [id number] 00:00:00 00:00:00 Vanda BECK 350.1.13.10 [facility] 4.2.7.2.686 [id number] [facility] 2020-01-17 2020-01-17 Telephone DARRION Wheeler 1.2.840.114 [id number] [facility] 00:00:00 00:00:00 Vanda BECK 350.1.13.10 it y of HOSPITAL 4.2.7.2.686 [place] as [id number] [address] 2020-01-16 2020-01-16 Urgent Pob1, Acute Care Clinic [facility] 1. 2.840.114 [id number] Univers 15:27:32 15:47:32 Joana [facility] 350.1.13.10 ity of [place] 4.2.7.2.686 Robert as Professio [id number] Va dical [address] Office Building One 2020-01-16 2020-01-16 Urgent Pob1, Acute [facility] 1.2.840.114 [id number] 15:27:32 15:47:32 Care Care Clinic Health 350.1.13.10 [place] 4.2.7.2.686 Professio [id number] nal [facility] Office Building One 2020-01-16 2020-01-16 [facility] [id number] Univers 15:40:00 15:40:00 JOANA ity [facility] Results Test Description Test Time Test Comments Results Result Comments Source GLUCOMETER GLUCOSE- LAB USE ONLY 2020-07-30 07:30:00 Test Item Value Reference Range Interpretation Comme nts GLUCOMETER (test code = GMG) 167 mg/dL 70-100 H Meter ID: [id number]: [id number] BACILIO KRISHNAN GLUCOMETER GLUCOSE- LAB USE [id number] 07:30:00 Test Item Value Reference Range Interpretation Comments GLUCOMETER (test code = 178 mg/dL 70-100 H Mete r ID: GMG) [id number] tor: [id number] BECKI SID URINE MONOCLONALFB2020-07-30 04:32:00 Test Item Value Reference Range Interpretation Comments PREG UR (test code = PGU) NEGATIVE NEGATIVE
[2023-02-07] MEDS ORDERED: TRAMADOL HCL 50 MG TAB ONE (13:55)
[2023-02-07] MEDS ORDERED: IBUPROFEN 400 MG TAB ONE (13:56)
--- NOTE | 2023-02-07 14:05 | RAD REPORT ---
EXAM DESCRIPTION: RAD - Tib Fib Right - 02/07/2023 1:16 pm CLINICAL HISTORY: PAIN COMPARISON: No comparisons TECHNIQUE: Right tibia and fibula, 2 views. FINDINGS: No fracture is identified. There is no dislocation or periosteal reaction noted. No acute or suspicious bony finding. Mild tricompartmental knee degenerative changes. No foreign body or other soft tissue abnormality. IMPRESSION: No acute osseus abnormality. Mild degenerative changes as above.
--- NOTE | 2023-02-07 14:42 | RAD REPORT ---
EXAM DESCRIPTION: RAD - Knee Right 3 View - 02/07/2023 1:15 pm CLINICAL HISTORY: PAIN COMPARISON: No comparisons TECHNIQUE: Right knee, 3 views. FINDINGS: No fracture, dislocation or periosteal reaction.No joint effusion seen. Mild tricompartmen jessee degenerative changes with marginal spurring, however no significant joint space loss. . No soft t issue abnormality. Clinical concerns for internal derangement or occult bony injury could be further assessed with MR im aging. IMPRESSION: No acute osseous abnormality. Mild degenerative changes.
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
[2023-02-07 16:13] VITALS: TEMP 98.2
[2023-02-07 16:14] VITALS: BP 120/68; O2SAT 98
== END 2023-02-07 15:41 | disposition home or self-care (01) ==
LOC: ER 12:10
DX: S86.811A Strain of other muscle(s) and tendon(s) at lower leg level, right leg, initial encounter (principal); F17.210 Nicotine dependence, cigarettes, uncomplicated; I10 Essential (primary) hypertension
CPT/HCPCS: 99283

== ENCOUNTER → 2023-08-31 | Emergency (ER) | payer BC ==
[~2023-08-31] MED LIST: HYDROCODONE/APAP 5/325 MG TAB ONE
--- NOTE | 2023-08-31 03:31 | EDPHYS ---
Physician Documentation [facility] Name: Alesia De Souza Age: 48 yrs Sex: Female : 1975 Arrival Date: 08/31/2023 Time: 02:05 Bed 5 Private MD: ED Physician Gordon Byrnes HPI: 08/31 02:36 This 48 yrs old Female presents to ER via Wheelchair with complaints of Knee sp3 Injury, Knee Pain. 02:36 48-year-old female with prior right knee pain presents to the ED for "pop in her knee" sp3 while she was walking today. She denies any direct trauma or injury. ROS otherwise negative. No distal symptoms and patient is ambulatory but it is painful.. 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 - Social history:: Smoking status: Patient reports the use of cigarette tobacco products, smokes one-half pack cigarettes per day, Patient/guardian denies using alcohol, street drugs. ROS: 02:38 Constitutional: Negative for fever, chills, and weight loss, Eyes: Negative for injury, sp3 pain, redness, and discharge, ENT: Negative for injury, pain, and discharge, Neck: Negative for injury, pain, and swelling, Cardiovascular: Negative for chest pain, palpitations, and edema, Respiratory: Negative for shortness of breath, cough, wheezing, and pleuritic chest pain, Abdomen/GI: Negative for abdominal pain, nausea, vomiting, diarrhea, and constipation, Back: Negative for injury and pain, Skin: Negative for injury, rash, and discoloration, Neuro: Negative for headache, weakness, numbness, tingling, and seizure, Psych: Negative for depression, anxiety, suicide ideation, homicidal ideation, and hallucinations, Allergy/Immunology: Negative for hives, rash, and allergies, Endocrine: Negative for neck swelling, polydipsia, polyuria, polyphagia, and marked weight changes, Hematologic/Lymphatic: Negative for swollen nodes, abnormal bleeding, and unusual bruising, 02:38 All other systems are negative, Exam: 02:38 Constitutional: This is a well developed, well nourished patient who is awake, alert, sp3 and in no acute distress. Head/Face: Normocephalic, atraumatic. Eyes: Pupils equal round and reactive to light, extra-ocular motions intact. Lids and lashes normal. Conjunctiva and sclera are non-icteric and not injected. Cornea within normal limits. Periorbital areas with no swelling, redness, or edema. Neck: Trachea midline, no thyromegaly or masses palpated, and no cervical lymphadenopathy. Supple, full range of motion without nuchal rigidity, or vertebral point tenderness. No Meningismus. Chest/axilla: Normal chest wall appearance and motion. Nontender with no deformity. No lesions are appreciated. Cardiovascular: Regular rate and rhythm with a normal S1 and S2. No gallops, murmurs, or rubs. Normal PMI, no JVD. No pulse deficits. Respiratory: Lungs have equal breath sounds bilaterally, clear to auscultation and percussion. No rales, rhonchi or wheezes noted. No increased work of breathing, no retractions or nasal flaring. Back: No spinal tenderness. No costovertebral tenderness. Full range of motion. Skin: Warm, dry with normal turgor. Normal color with no rashes, no lesions, and no evidence of cellulitis. Neuro: Awake and alert, GCS 15, oriented to person, place, time, and situation. Cranial nerves II-XII grossly intact. Motor strength 5/5 in all extremities. Sensory grossly intact. Cerebellar exam normal. Normal gait. Psych: Awake, alert, with orientation to person, place and time. Behavior, mood, and affect are within normal limits. 02:38 Musculoskeletal/extremity: No joint effusion or other pain noted. Patient has lateral and medial knee pain on palpation. Distal neurovascular exam is normal.. Vital Signs: 02:27 BP 129 / 77; Pulse 92; Resp 20; Temp 97.7(IR); Pulse Ox 100% on R/A; Weight 84.82 kg km8 (R); Height 5 ft. 0 in. (R); Pain 10/10; 02:27 Body Mass Index 36.52 (84.82 kg, 152.4 cm) km8 02:27 Pain Scale: Adult km8 Radha Coma Score: 02:33 Eye Response: spontaneous(4). Motor Response: obeys commands(6). Verbal Response: km8 oriented(5). Total: 15. MDM: 02:10 Patient medically screened. sp3 02:39 Data reviewed: vital signs, nurses notes, radiologic studies. ED course: 48-year-old sp3 female with stress fracture versus internal derangement of the knee. Will obtain x-ray and if negative send patient home for orthopedic follow-up for likely MRI on knee immobilizer and crutches. Rhome 2 tabs p.o. for pain control. I am not suspicious for vascular compromise.. 03:23 ED course: X-ray is normal. We will place a knee immobilizer, crutches and discharge sp3 safely home with Ortho follow-up.. 08/31 02:10 Order name: Knee Right 3 View XRAY sp3 08/31 03:22 Order name: Knee Immobilizer; Complete Time: 03:47 sp3 08/31 03:22 Order name: Crutch Training; Complete Time: 03:47 sp3 Administered Medications: 02:47 Drug: HYDROcodone-acetaminophen PO 5 mg-325 mg 2 tabs PO once Route: PO; jw7 03:57 Follow up: Response: No adverse reaction km8 Disposition Summary: 08/31/23 03:30 Discharge Ordered Notes: Location: Home sp3 Condition: Stable sp3 Diagnosis - Internal derangement of the right knee sp3 Followup: sp3 - With: Private Physician - When: Upon discharge from the Emergency Department - Reason: Continuance of care Followup: sp3 - With: Urban Amado MD - When: Upon discharge from the Emergency Department - Reason: Continuance of care Discharge Instructions: - Discharge Summary Sheet sp3 - How to Use a Knee Immobilizer sp3 - Acute Knee Pain, Adult sp3 Forms: - Medication Reconciliation Form sp3 - Thank You Letter sp3 - Antibiotic Education sp3 - Prescription Opioid Use sp3 - Patient Portal Instructions sp3 - Leadership Thank You Letter sp3 Prescriptions: - Diclofenac Sodium 75 mg Oral Tablet Sustained Release - take 1 tablet ORAL route 2 times per day; 30 tablet; Refills: 0, Product sp3 Selection Permitted Signatures: Dispatcher [employer] Gordon Gerardo MD MD sp3 Latricia Valdes RN RN jw7 Joie Taylor RN RN km8
--- NOTE | 2023-08-31 03:31 | ER ---
Nurse's Notes [facility] Name: Alesia De Souza Age: 48 yrs Sex: Female : 1975 Arrival Date: 08/31/2023 Time: 02:05 Bed 5 Private MD: Diagnosis: Internal derangement of the right knee Presentation: 08/31 02:27 Chief complaint: Patient states: right knee pain for 1-1.5 weeks, tonight while putting km8 on PJ's pt's right knee popped and pain got worse. Coronavirus screen: Client denies travel out of the [place] in the last 14 days. Ebola Screen: No symptoms or risks identified at this time. Initial Sepsis Screen: Does the patient meet any 2 criteria? HR > 90 bpm. Does the patient have a suspected source of infection? No. Patient's initial sepsis screen is negative. Risk Assessment: Do you want to hurt yourself or someone else? Patient reports no desire to harm self or others. Onset of symptoms is unknown. 02:27 Method Of Arrival: Wheelchair km8 02:27 Acuity: EILEEN 3 km8 Triage Assessment: 02:27 General: Appears uncomfortable, Behavior is appropriate for age, anxious. Pain: km8 Complains of pain in right knee Pain currently is 10 out of 10 on a pain scale. EENT: No signs and/or symptoms were reported regarding the EENT system. Neuro: Level of Consciousness is awake, alert, obeys commands, Oriented to person, place, time, situation. Cardiovascular: Capillary refill < 3 seconds Patient's skin is warm and dry. Respiratory: Airway is patent Respiratory effort is even, unlabored, Respiratory pattern is regular, symmetrical. GI: No signs and/or symptoms were reported involving the gastrointestinal system. : No signs and/or symptoms were reported regarding the genitourinary system. Derm: Skin is intact, Skin is dry, Skin is pink, warm \\T\\ dry. normal, Skin temperature is warm. Musculoskeletal: Range of motion: limited in right knee. Injury Description: "popped". 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 - Social history:: Smoking status: Patient reports the use of cigarette tobacco products, smokes one-half pack cigarettes per day, Patient/guardian denies using alcohol, street drugs. Screenin:33 [facility] ED Fall Risk Assessment (Adult) History of falling in the last 3 months, km8 including since admission No falls in past 3 months (0 pts) Confusion or Disorientation No (0 pts) Intoxicated or Sedated No (0 pts) Impaired Gait No (0 pts) Mobility Assist Device Used No (0 pt) Altered Elimination No (0 pt) Score/Fall Risk Level 0 - 2 = Low Risk Oriented to surroundings, Maintained a safe environment, Educated pt \\T\\ family on fall prevention, incl call for assistance when getting out of bed, Assessed \\T\\ reinforced patient's understanding of fall precautions. Abuse screen: Denies threats or abuse. Denies injuries from another. Nutritional screening: No deficits noted. Tuberculosis screening: No symptoms or risk factors identified. Assessment: 02:33 General: see triage notes/assessment. km8 Vital Signs: 02:27 BP 129 / 77; Pulse 92; Resp 20; Temp 97.7(IR); Pulse Ox 100% on R/A; Weight 84.82 kg km8 (R); Height 5 ft. 0 in. (R); Pain 10/10; 02:27 Body Mass Index 36.52 (84.82 kg, 152.4 cm) km8 02:27 Pain Scale: Adult km8 Radha Coma Score: 02:33 Eye Response: spontaneous(4). Motor Response: obeys commands(6). Verbal Response: km8 oriented(5). Total: 15. ED Course: 02:06 Patient arrived in ED. jj6 02:09 Gordon Byrnes MD is Attending Physician. sp3 02:27 Arm band placed on right wrist. km8 02:29 Triage completed. km8 02:33 Patient has correct armband on for positive identification. Placed in gown. Bed in low km8 position. Call light in reach. Side rails up X 1. Pulse ox on. NIBP on. Door closed. Noise minimized. Lights dimmed. Warm blanket given. 02:33 No provider procedures requiring assistance completed. Patient maintains SpO2 km8 saturation greater than 95% on room air. 03:14 Knee Right 3 View XRAY In Process Unspecified. EDMS 03:32 Urban Amado MD is Referral Physician. sp3 03:55 Provided Education on: d/c teaching. km8 03:55 Patient did not have IV access during this emergency room visit. km8 Administered Medications: 02:47 Drug: HYDROcodone-acetaminophen PO 5 mg-325 mg 2 tabs PO once Route: PO; jw7 03:57 Follow up: Response: No adverse reaction km8 Medication: 02:33 VIS not applicable for this client. km8 Outcome: 03:30 Discharge ordered by MD. sp3 03:57 Discharged to home via wheelchair, km8 03:57 Condition: good 03:57 Discharge instructions given to patient, Instructed on discharge instructions, follow up and referral plans. crutch walking, Demonstrated understanding of instructions, follow-up care, crutch walking, 03:59 Patient left the ED. km8 Signatures: Dispatcher [employer] EDMS Gordon Byrnes MD MD sp3 Portia [id number] Latricia Valdes RN RN jw7 Joie Taylor RN RN km8
[2023-08-31 06:48] VITALS: BP 129/77; TEMP 97.7; O2SAT 100
--- NOTE | 2023-08-31 14:17 | RAD REPORT ---
EXAM DESCRIPTION: RAD - Knee Right 3 View - 08/31/2023 3:12 am CLINICAL HISTORY: 48 years, Female, PAIN COMPARISON: None FINDINGS: 3 X-ray views of the right knee (frontal lateral and oblique views) were performed. Bones: No areas of acute bony injuries were demonstrated. Soft tissues: No significant soft tissue swelling. Joints: There is no joint effusion. Minimal spondylosis intercondylar eminence. Others: There are no gross intraosseous lesions. No periosteal reaction were seen. IMPRESSION: No acute bony injuries were demonstrated. 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 The interpreting radiologist is fully responsible for the content of the report.
== END ==
LOC: ER 02:05
DX: M23.91 Unspecified internal derangement of right knee (principal); F17.210 Nicotine dependence, cigarettes, uncomplicated
CPT/HCPCS: 99284

== ENCOUNTER 2024-08-23 16:35 | Emergency (ER) | payer SELFPAY ==
[2024-08-23 18:23] LABS: Specific Gravity 1.025 (1.005-1.030); Sqamous Epithelial <5 /HPF (None Seen); Urine Bacteria <20 /HPF (<20); Urine Bilirubin NEGATIVE (Negative); Urine Blood 1+ (Negative); Urine Clarity Extremely Turbid (Clear); Urine Color Dark-Yellow (Yellow); Urine Culture Reflex Order REFLEXED; Urine Glucose 4+ (Over) (Negative); Urine Ketones NEGATIVE (Negative); Urine Micro Reflex YN NO BILL MICROSCOPIC; Urine Nitrite 1+ (Negative); Urine Protein TRACE (Negative); Urine RBC 21-50 /HPF (None Seen); Urine Urobilinogen Normal (Normal); Urine WBC >50 /HPF (<5); Urine pH 5.5 (5.0-7.0)
--- NOTE | 2024-08-23 18:45 | ER ---
Nurse's Notes [facility] Name: Alesia eD Souza Age: 49 yrs Sex: Female : 1975 Arrival Date: 08/23/2024 Time: 16:35 Bed DX4 Private MD: Diagnosis: UTI/ Urinary tract infection, site not specified Presentation: 08/23 16:57 Chief complaint: Patient states: Dysuria, and lower abdominal pain with nausea for 2 ll1 days. Just had UTI last month, but this feels worse. Coronavirus screen: Client denies travel out of the [place] in the last 14 days. At this time, the client does not indicate any symptoms associated with coronavirus-19. Ebola Screen: Patient denies travel to an Ebola-affected area in the 21 days before illness onset. Initial Sepsis Screen: Does the patient meet any 2 criteria? No. Patient's initial sepsis screen is negative. Does the patient have a suspected source of infection? No. Patient's initial sepsis screen is negative. Risk Assessment: Do you want to hurt yourself or someone else? Patient reports no desire to harm self or others. Onset of symptoms was August 22, 2024. 16:57 Method Of Arrival: Ambulatory ll1 16:57 Acuity: EILEEN 3 ll1 Triage Assessment: 16:57 General: Appears uncomfortable, Behavior is calm, cooperative, appropriate for age. ll1 Pain: Complains of pain in pelvis. GI: Reports lower abdominal pain, nausea. : Reports pain with urination, urgency, urinary frequency. 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 - Infectious Disease History:: Denies. - Social history:: Smoking status: Patient reports the use of cigarette tobacco products, denies chronic smoking, but will smoke occasionally. Screenin:01 [facility] ED Fall Risk Assessment (Adult) History of falling in the last 3 months, ll1 including since admission No falls in past 3 months (0 pts) Confusion or Disorientation No (0 pts) Intoxicated or Sedated No (0 pts) Impaired Gait No (0 pts) Mobility Assist Device Used No (0 pt) Altered Elimination No (0 pt) Score/Fall Risk Level 0 - 2 = Low Risk Maintained a safe environment, Hourly rounding (assess needs \T\ fall precautionary measures) done. Abuse screen: Denies threats or abuse. Nutritional screening: No deficits noted. Tuberculosis screening: No symptoms or risk factors identified. Assessment: 18:08 Reassessment: No changes from previously documented assessment. Patient and/or family ll1 updated on plan of care and expected duration. Pain level reassessed. 19:00 Reassessment: No changes from previously documented assessment. Patient and/or family ll1 updated on plan of care and expected duration. Pain level reassessed. Patient is alert, oriented x 3, equal unlabored respirations, skin warm/dry/pink. Vital Signs: 16:57 BP 120 / 73; Pulse 88; Resp 17; Temp 97.4; Pulse Ox 99% ; Weight 80.74 kg; Height 5 ft. ll1 1 in. ; Pain 10/10; 18:58 BP 108 / 69; Pulse 70; Resp 16; Pulse Ox 98% on R/A; ll1 16:57 Body Mass Index 33.63 (80.74 kg, 154.94 cm) ll1 16:57 Pain Scale: Adult ll1 ED Course: 16:37 Patient arrived in ED. mr 16:51 Arm band placed on. ll1 16:59 Triage completed. ll1 18:08 Urine collected: clean catch specimen, senait colored, Amount Voided: 300mL. ll1 18:09 Urinalysis W/Microscopic Sent. ll1 18:43 Lily Reno FNP-C is PHCP. kb 18:43 Anderson Andres MD is Attending Physician. kb 19:01 Patient has correct armband on for positive identification. Provided Education on: ll1 finish all prescribed antibiotics. 19:01 No provider procedures requiring assistance completed. Patient did not have IV access ll1 during this emergency room visit. Administered Medications: 19:00 Drug: Amoxicillin-Clavulanate PO 875 mg PO once Route: PO; ll1 19:00 Follow up: Response: No adverse reaction ll1 Medication: 19:01 VIS not applicable for this client. ll1 Outcome: 18:44 Discharge ordered by . kb 19:01 Patient left the ED. ll1 19:01 Discharged to home ambulatory, ll1 19:01 Condition: stable 19:01 Discharge instructions given to patient, family, Instructed on discharge instructions, follow up and referral plans. medication usage, Demonstrated understanding of instructions, follow-up care, medications, Prescriptions given X 1, Signatures: Lily Reno, COCONUT BOILER-C COCONUT BOILER-CkSirisha Lang, Reg Reg mr Radha Nunn, RN RN ll1
--- NOTE | 2024-08-23 18:45 | EDPHYS ---
Physician Documentation [facility] Name: Alesia De Souza Age: 49 yrs Sex: Female : 1975 Arrival Date: 08/23/2024 Time: 16:35 Bed DX4 Private MD: ED Physician Anderson Andres HPI: 08/23 21:37 This 49 yrs old Female presents to ER via Ambulatory with complaints of kb Urinary Problem. 21:37 Pt is a 49 year old female who presents for dysuria, frequency and low back pain that kb started yesterday and got worse today. Denies fever, abd pain, n/v/d. States the back pain is similar to normal back pain. . 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 - Infectious Disease History:: Denies. - Social history:: Smoking status: Patient reports the use of cigarette tobacco products, denies chronic smoking, but will smoke occasionally. ROS: 21:36 Constitutional: As per HPI kb Exam: 21:36 Constitutional: This is a well developed, well nourished patient who is awake, alert, kb and in no acute distress. Head/Face: Normocephalic, atraumatic. ENT: Moist Mucous membranes Cardiovascular: Regular rate Respiratory: Respirations even and unlabored. No increased work of breathing. Talking in full sentences Abdomen/GI: Soft, non-tender. No distention Back: No spinal tenderness. No costovertebral tenderness. Full range of motion. Skin: Warm, dry with normal turgor. Normal color. MS/ Extremity: Pulses equal, no cyanosis. Neurovascular intact. Full, normal range of motion. Neuro: Awake and alert, GCS 15, oriented to person, place, time, and situation. Vital Signs: 16:57 BP 120 / 73; Pulse 88; Resp 17; Temp 97.4; Pulse Ox 99% ; Weight 80.74 kg; Height 5 ft. ll1 1 in. ; Pain 10/10; 18:58 BP 108 / 69; Pulse 70; Resp 16; Pulse Ox 98% on R/A; ll1 16:57 Body Mass Index 33.63 (80.74 kg, 154.94 cm) ll1 16:57 Pain Scale: Adult ll1 MDM: 18:43 Medical Screening Exam initiated kb 21:36 Differential diagnosis: UTI, pyelonephritis. Data reviewed: vital signs, nurses notes. kb Test considered but Not performed: Labs: cbc, cmp considered but pt is nontoxic in appearance, afebrile, tolerating po intake. CT: ct considered pt pt has no abd or CVA tenderness. Counseling: I had a detailed discussion with the patient and/or guardian regarding the historical points, exam findings, and any diagnostic results supporting the discharge/admit diagnosis, lab results, the need for outpatient follow up, a family practitioner, to return to the emergency department if symptoms worsen or persist or if there are any questions or concerns that arise at home. 08/23 18:08 Order name: Urinalysis W/Microscopic; Complete Time: 18:37 ll1 08/23 18:27 Order name: Urine Culture EDDC Administered Medications: 19:00 Drug: Amoxicillin-Clavulanate PO 875 mg PO once Route: PO; ll1 19:00 Follow up: Response: No adverse reaction ll1 Disposition Summary: 08/23/24 18:44 Discharge Ordered Notes: Location: Home kb Condition: Stable kb Diagnosis - UTI/ Urinary tract infection, site not specified kb Followup: kb - With: Emergency Department - When: As needed - Reason: Worsening of condition Followup: kb - With: Private Physician - When: 2 - 3 days - Reason: Recheck today's complaints, Continuance of care, Re-evaluation by your physician Discharge Instructions: - Discharge Summary Sheet kb - Urinary Tract Infection, Adult, [id number] kb Forms: - Medication Reconciliation Form kb - Antibiotic Education kb - Prescription Opioid Use kb - Patient Portal Instructions kb - Leadership Thank You Letter kb Prescriptions: - Augmentin 875-125 mg Oral Tablet - take 1 tablet ORAL route every 12 hours for 10 days; 20 tablet; Refills: 0, kb Product Selection Permitted Signatures: Dispatcher [employer] EDLily Constantino FNP-C FNP-Ckb Lewis, Lynsay RN RN ll1
[2024-08-23] MEDS ORDERED: AMOX/K CLAV 875 MG TAB ONE (18:47)
[2024-08-23 19:32] VITALS: BP 120/73; TEMP 97.4; O2SAT 99
== END 2024-08-23 19:01 | disposition home or self-care (01) ==
LOC: ER 16:35
DX: N39.0 Urinary tract infection, site not specified (principal)
CPT/HCPCS: 81001; 87086; 87088; 99283

== ENCOUNTER 2024-12-14 12:14 | Emergency (ER) | payer SELFPAY ==
[2024-12-14 12:52] LABS: Absolute Eosinophils 0.2 K/uL (0-0.5); Absolute Lymphocytes (CBC) 2.4 K/uL (0.7-4.9); Absolute Monocytes 0.7 K/uL (0.1-1.3); Absolute Neutrophil 6.5 K/uL (1.8-8.0); Basophils % 0.5 % (0-1.3); Eosinophils % 1.9 % (0-4.4); Hematocrit 40.8 % (36.0-45.0); Lymphocytes % 24.5 % (15.3-44.8); MCH 29.8 pg (27.0-35.0); MCHC 34.2 g/dL (32.0-36.0); MCV 87.1 fL (80-100); MPV 8.9 fL (7.6-11.3); Monocytes % 7.1 % (3.3-12.3); Nucleated Red Blood Cells % 0.1 % (0-0); Platelets 301 thou/uL (152-406); RBC Red Blood Cell Count 4.68 M/uL (3.86-4.86)
[2024-12-14 13:04] LABS: Protime INR 0.96
[2024-12-14 13:05] LABS: PTT, Activated Partial Thromb 27.1 SECONDS (27.2-37.4)
--- NOTE | 2024-12-14 13:08 | RAD REPORT ---
EXAM: CT Head Brain Wo Cont HISTORY: AMS COMPARISON: 12/15/2021 TECHNIQUE: Multiple contiguous axial images were obtained for a CT of the brain without contrast. Sag ittal and coronal reformats were performed. One or more of the following dose reduction techniques were used: Automated exposure control, adjus tment of the mA and kV according to patient size, and iterative reconstruction. Unless otherwise specified, incidental findings do not require dedicated imaging follow-up. FINDINGS: No evidence of hydrocephalus, intracranial hemorrhage, or extra-axial fluid collection. The brain is normal in morphology. The calvarium is intact. The visualized paranasal sinuses and mastoid air cells are essentially clear . IMPRESSION: No evidence of acute intracranial abnormality.
[2024-12-14 13:17] LABS: ALT/SGPT 21 U/L (13-56); Albumin 3.2 g/dL (3.4-5.0); Albumin/Globulin Ratio 0.8 (1.1-1.8); Alkaline Phosphatase 120 U/L (45-117); Anion Gap 9.4 mEq/L (5.0-15.0); BUN Blood Urea Nitrogen 13 mg/dL (7-18); Bicarbonate 25 mEq/L (21-32); Bilirubin Total 0.4 mg/dL (0.2-1.0); Globulin 3.9 g/dL (2.3-3.5); Glomerular Filtration Rate 108 ml/min (=/>90); Glucose Level 203 mg/dL (74-106); Potassium 3.4 mEq/L (3.5-5.1); Protein, Total 7.1 g/dL (6.4-8.2); Sodium Level 139 mEq/L (136-145); Troponin High Sensitivity 3.9 pg/mL (<58.9)
[2024-12-14 13:19] LABS: AST/SGOT < 10 U/L (15-37); Bilirubin Direct < 0.2 mg/dL (0-0.2); Bilirubin Indirect, Calculated 0.2 mg/dL (0.2-0.8)
[2024-12-14 14:30] LABS: Specific Gravity > 1.030 (1.005-1.030); Urine Bilirubin NEGATIVE (Negative); Urine Blood Negative (Negative); Urine Clarity Clear (Clear); Urine Color Yellow (Yellow); Urine Glucose 4+ (Over) (Negative); Urine Ketones NEGATIVE (Negative); Urine Microscopic Reflex YN NO UMIC; Urine Nitrite NEGATIVE (Negative); Urine Protein NEGATIVE (Negative); Urine Urobilinogen Normal (Normal); Urine pH 5.5 (5.0-7.0)
[2024-12-14 14:39] LABS: Barbiturates NEGATIVE (NEGATIVE); Benzodiazepines NEGATIVE (NEGATIVE); Cocaine POSITIVE (NEGATIVE); METHAMPHETAM NEGATIVE (NEGATIVE); Methadone NEGATIVE (NEGATIVE); Opiates NEGATIVE (NEGATIVE); Phencyclidine NEGATIVE (NEGATIVE); THC Cannibis POSITIVE (NEGATIVE)
--- NOTE | 2024-12-14 14:46 | ER ---
Nurse's Notes [facility] Name: Alesia De Souza Age: 49 yrs Sex: Female : 1975 Arrival Date: 12/14/2024 Time: 12:14 Bed 14 Private MD: Diagnosis: Cocaine abuse, marijuana abuse, altered mental status (now resolved) Presentation: 12/14 12:27 Chief complaint: EMS states: chest pain, lethargy. Coronavirus screen: Client denies kj2 travel out of the [place] in the last 14 days. Ebola Screen: No symptoms or risks identified at this time. Initial Sepsis Screen: Does the patient meet any 2 criteria? No. Patient's initial sepsis screen is negative. Does the patient have a suspected source of infection? No. Patient's initial sepsis screen is negative. Risk Assessment: Do you want to hurt yourself or someone else? Patient reports no desire to harm self or others. Onset of symptoms was December 13, 2024. 12:27 Method Of Arrival: EMS: [facility] kj2 12:27 Acuity: EILEEN 3 kj2 Triage Assessment: 12:31 General: Appears in no apparent distress. Behavior is drowsy. Pain: Complains of pain kj2 in chest Pain currently is 5 out of 10 on a pain scale. Neuro: Level of Consciousness is awake, alert, Oriented to person, place, time, situation. Cardiovascular: Patient's skin is warm and dry. Respiratory: Airway is patent Respiratory effort is even, unlabored. GI: No signs and/or symptoms were reported involving the gastrointestinal system. : No signs and/or symptoms were reported regarding the genitourinary system. 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 - Infectious Disease History:: Denies. - Social history:: Smoking status: unknown. Screenin:32 [facility] ED Fall Risk Assessment (Adult) History of falling in the last 3 months, kj2 including since admission No falls in past 3 months (0 pts) Confusion or Disorientation No (0 pts) Intoxicated or Sedated No (0 pts) Impaired Gait No (0 pts) Mobility Assist Device Used No (0 pt) Altered Elimination No (0 pt) Score/Fall Risk Level 0 - 2 = Low Risk. 12:47 Abuse screen: Denies threats or abuse. Denies injuries from another. Nutritional kj2 screening: No deficits noted. 12:47 Tuberculosis screening: No symptoms or risk factors identified. kj2 Assessment: 12:20 Pain: Pain does not radiate. Pain began. kj2 12:30 General: see triage assessment. kj2 13:33 Reassessment: Patient appears in no apparent distress at this time. Patient and/or kj2 family updated on plan of care and expected duration. Pain level reassessed. Patient is alert, oriented x 3, equal unlabored respirations, skin warm/dry/pink. 14:38 Reassessment: Patient appears in no apparent distress at this time. Patient and/or kj2 family updated on plan of care and expected duration. Pain level reassessed. Patient is alert, oriented x 3, equal unlabored respirations, skin warm/dry/pink. 14:57 Reassessment: Patient appears in no apparent distress at this time. Patient and/or kj2 family updated on plan of care and expected duration. Pain level reassessed. Patient is alert, oriented x 3, equal unlabored respirations, skin warm/dry/pink. Vital Signs: 12:27 BP 139 / 103; Pulse 62; Resp 18; Temp 98.2; Pulse Ox 99% on R/A; Weight 74.84 kg; kj2 Height 5 ft. 0 in. ; Pain 5/10; 13:33 BP 161 / 104; Pulse 59; Resp 20; Pulse Ox 97% ; kj2 14:38 BP 151 / 102; Pulse 78; Resp 18; Pulse Ox 99% on R/A; kj2 14:57 BP 150 / 90; Pulse 80; Resp 20; Temp 98; Pulse Ox 100% on R/A; kj2 12:27 Body Mass Index 32.22 (74.84 kg, 152.4 cm) kj2 12:27 Pain Scale: Adult kj2 ED Course: 12:15 Patient arrived in ED. sp3 12:15 Gordon Byrnes MD is Attending Physician. sp3 12:20 Patient has correct armband on for positive identification. Provided Education on: call kj2 light. Client placed on continuous cardiac and pulse oximetry monitoring. NIBP monitoring applied. secured entrance monitor on. Pulse ox on. NIBP on. 12:20 Arm band placed on Patient placed in an exam room. kj2 12:20 Patient maintains SpO2 saturation greater than 95% on room air. kj2 12:25 Doris Cuevas, RN is Primary Nurse. kj2 12:30 Triage completed. kj2 12:40 EKG done, by ED staff, reviewed by Doris Cuevas RN. nh2 12:47 Maintain EMS IV. Dressing intact. Good blood return noted. Site clean \T\ dry. Gauge \T\ nh 2 site: 20 G L AC. Flushed with 10 mL NS. 12:48 Acetaminophen Sent. nh2 12:48 Basic Metabolic Panel Sent. nh2 12:48 CBC with Diff Sent. nh2 12:48 ETOH Level Sent. nh2 12:48 Hepatic Function Sent. nh2 12:48 PT-INR Sent. nh2 12:48 Ptt, Activated Sent. nh2 12:48 Salicylate Sent. nh2 13:01 CT Head Brain wo Cont In Process Unspecified. EDMS 14:59 No provider procedures requiring assistance completed. IV discontinued, intact, kj2 bleeding controlled, No redness/swelling at site. Pressure dressing applied. Administered Medications: No medications were administered Medication: 12:45 VIS not applicable for this client. kj2 Outcome: 14:46 Discharge ordered by . sp3 14:59 Discharged to home ambulatory, kj2 14:59 Condition: stable 14:59 Discharge instructions given to patient, family, Instructed on discharge instructions, follow up and referral plans. Demonstrated understanding of instructions, follow-up care, 15:25 Patient left the ED. kj2 Signatures: Dispatcher [employer] EDMS Gordon Byrnes MD MD sp3 Doris Cuevas, RN RN kj2 Emery Kearns, [place] nh2
--- NOTE | 2024-12-14 14:46 | EDPHYS ---
Physician Documentation [facility] Name: Alesia De Souza Age: 49 yrs Sex: Female : 1975 Arrival Date: 12/14/2024 Time: 12:14 Bed 14 Private MD: ED Physician Gordon Byrnes HPI: 12/14 12:27 This 49 yrs old Female presents to ER via Unassigned with complaints of sp3 altered mental status. 12:27 49-year-old female with history of hypertension, hyperlipidemia, diabetes, rheumatoid sp3 arthritis, prior with amphetamine/cocaine use, now presents to the ED with chief complaint altered mental status consisting of being difficult to arouse and generally globally weak. EMS was activated by son. Patient states her chest hurt earlier but is now resolved. She is awake and alert however just slow to respond. She denies any new medications or drug use. She denies any trauma, headache, head injury, neck pain, back pain, shortness breath, abdominal pain, nausea, vomiting, diarrhea, bleeding, or any other signs or symptoms on ROS at this time.. 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 - Infectious Disease History:: Denies. - Social history:: Smoking status: unknown. ROS: 12:28 Constitutional: Negative for fever, chills, and weight loss, Eyes: Negative for injury, sp3 pain, redness, and discharge, Neck: Negative for injury, pain, and swelling, Cardiovascular: Negative for chest pain, palpitations, and edema, Respiratory: Negative for shortness of breath, cough, wheezing, and pleuritic chest pain, Abdomen/GI: Negative for abdominal pain, nausea, vomiting, diarrhea, and constipation, Back: Negative for injury and pain, MS/Extremity: Negative for injury and deformity, Skin: Negative for injury, rash, and discoloration, Psych: Negative for depression, anxiety, suicide ideation, homicidal ideation, and hallucinations, Allergy/Immunology: Negative for hives, rash, and allergies, Endocrine: Negative for neck swelling, polydipsia, polyuria, polyphagia, and marked weight changes, Hematologic/Lymphatic: Negative for swollen nodes, abnormal bleeding, and unusual bruising, 12:28 All other systems are negative, Exam: 12:28 Constitutional: This is a well developed, well nourished patient who is awake, alert, sp3 and in no acute distress. Head/Face: Normocephalic, atraumatic. Eyes: Pupils equal round and reactive to light, extra-ocular motions intact. Lids and lashes normal. Conjunctiva and sclera are non-icteric and not injected. Cornea within normal limits. Periorbital areas with no swelling, redness, or edema. ENT: Nares patent. No nasal discharge, no septal abnormalities noted. External auditory canals are clear. Oropharynx with no redness, swelling, or masses, exudates, or evidence of obstruction, uvula midline. Mucous membranes moist. Neck: Trachea midline, no thyromegaly or masses palpated, and no cervical lymphadenopathy. Supple, full range of motion without nuchal rigidity, or vertebral point tenderness. No Meningismus. Chest/axilla: Normal chest wall appearance and motion. Nontender with no deformity. No lesions are appreciated. Cardiovascular: Regular rate and rhythm with a normal S1 and S2. No gallops, murmurs, or rubs. Normal PMI, no JVD. No pulse deficits. Respiratory: Lungs have equal breath sounds bilaterally, clear to auscultation and percussion. No rales, rhonchi or wheezes noted. No increased work of breathing, no retractions or nasal flaring. Abdomen/GI: Soft, non-tender, with normal bowel sounds. No distension or tympany. No guarding or rebound. No evidence of tenderness throughout. Back: No spinal tenderness. No costovertebral tenderness. Full range of motion. Skin: Warm, dry with normal turgor. Normal color with no rashes, no lesions, and no evidence of cellulitis. MS/ Extremity: Pulses equal, no cyanosis. Neurovascular intact. Full, normal range of motion. Psych: Awake, alert, with orientation to person, place and time. Behavior, mood, and affect are within normal limits. 12:28 Neuro: Normal neurological exam other than being slow to arouse. Pupils equal round reactive to light. Patient is speaking slowly but in full sentences without speech abnormality., 12:49 ECG was reviewed by the Attending Physician. EKG demonstrates normal sinus rhythm at 68 sp3 bpm with normal intervals, normal QRS, normal axis, normal ST/T-segment's without evidence of acute ischemia. Vital Signs: 12:27 BP 139 / 103; Pulse 62; Resp 18; Temp 98.2; Pulse Ox 99% on R/A; Weight 74.84 kg; kj2 Height 5 ft. 0 in. ; Pain 5/10; 13:33 BP 161 / 104; Pulse 59; Resp 20; Pulse Ox 97% ; kj2 14:38 BP 151 / 102; Pulse 78; Resp 18; Pulse Ox 99% on R/A; kj2 14:57 BP 150 / 90; Pulse 80; Resp 20; Temp 98; Pulse Ox 100% on R/A; kj2 12:27 Body Mass Index 32.22 (74.84 kg, 152.4 cm) kj2 12:27 Pain Scale: Adult kj2 MDM: 12:15 Medical Screening Exam initiated sp3 12:30 Data reviewed: vital signs, nurses notes, EMS record, lab test result(s), EKG, sp3 radiologic studies. ED course: 49-year-old female with PMH above now with altered mental status and slow to arouse. Differential diagnosis includes dehydration, diabetic related pathology, drug use, infection, among others. I am at highly suspicious of intracranial abnormality, sepsis, shock, ACS, or any other critical process at this time. Workup include EKG, CT scan of the head, general labs including tox screen, troponin and general supportive care. Disposition pending workup and patient course.. 14:45 ED course: Full workup negative. Patient is alert and oriented in no distress in no sp3 pain whatsoever. Urine is positive for cocaine and marijuana. We will group home counselor patient and discharged home at this time.. 12/14 12:17 Order name: Acetaminophen; Complete Time: 13:54 sp3 12/14 12:17 Order name: Basic Metabolic Panel; Complete Time: 13:54 sp3 12/14 12:17 Order name: CBC with Diff; Complete Time: 13:09 sp3 12/14 12:17 Order name: ETOH Level; Complete Time: 13:54 sp3 12/14 12:17 Order name: Hepatic Function; Complete Time: 13:54 sp3 04/06 12:17 Order name: PT-INR; Complete Time: 13:09 sp3 12/14 12:17 Order name: Ptt, Activated; Complete Time: 13:09 sp3 12/14 12:17 Order name: Salicylate; Complete Time: 13:54 sp3 12/14 12:17 Order name: Urinalysis w/ reflexes; Complete Time: 14:44 sp3 12/14 12:17 Order name: Urine Drug Screen; Complete Time: 14:44 sp3 12/14 12:17 Order name: Troponin High Sensitivity; Complete Time: 13:54 sp3 12/14 12:17 Order name: CT Head Brain wo Cont; Complete Time: 13:09 sp3 12/14 12:17 Order name: EKG; Complete Time: 12:18 sp3 12/14 12:17 Order name: EKG - Nurse/Tech; Complete Time: 12:48 sp3 12/14 12:17 Order name: IV Saline Lock; Complete Time: 12:48 sp3 12/14 12:17 Order name: Labs collected and sent; Complete Time: 12:48 sp3 Administered Medications: No medications were administered Disposition Summary: 12/14/24 14:46 Discharge Ordered Notes: Location: Home sp3 Condition: Stable sp3 Diagnosis - Cocaine abuse, marijuana abuse, altered mental status (now resolved) sp3 Followup: sp3 - With: Private Physician - When: Upon discharge from the Emergency Department - Reason: Continuance of care Discharge Instructions: - Discharge Summary Sheet sp3 - Cocaine Use Disorder sp3 - Substance Use Disorder sp3 Forms: - Medication Reconciliation Form sp3 - Antibiotic Education sp3 - Prescription Opioid Use sp3 - Patient Portal Instructions sp3 - Leadership Thank You Letter sp3 Signatures: Dispatcher [employer] EDGordon Rodriguez MD MD sp3 Doris Cuevas, RN RN kj2 Corrections: (The following items were deleted from the chart) 12:18 12:18 ACETAMINOPHEN+C.LAB.BRZ ordered. EDMS EDMS 12:18 12:18 BASIC METABOLIC PANEL+C.LAB.BRZ ordered. EDMS EDMS 12:18 12:18 CBC+H.LAB.BRZ ordered. EDMS EDMS 12:18 12:18 ETHANOL+C.LAB.BRZ ordered. EDMS EDMS 12:18 12:18 HEPATIC FUNCTION+C.LAB.BRZ ordered. EDMS EDMS 12:18 12:18 PROTIME (+INR)+COAG.LAB.BRZ ordered. EDMS EDMS 12:18 12:18 PTT, ACTIVATED+COAG.LAB.BRZ ordered. EDMS EDMS 12:18 12:18 SALICYLATE+C.LAB.BRZ ordered. EDMS EDMS 12:18 12:18 Urinalysis+U.LAB.BRZ ordered. EDMS EDMS 12:18 12:18 URINE DRUG SCREEN+UC.LAB.BRZ ordered. EDMS EDMS 12:18 12:18 Troponin High Sensitivity+C.LAB.BRZ ordered. EDMS EDMS
[2024-12-14 15:35] VITALS: BP 150/90; TEMP 98; O2SAT 100
--- NOTE | 2024-12-15 11:30 | EKG ---
Test Date: 2024-12-14 Test Time: 12:30:02 Wet Silk Hanger: MARÍA MEASUREMENT RESULTS: Intervals: Rate: 68 DE: 154 QRSD: 96 QT: 424 QTc: 450 [place]: P: 63 DE: 154 QRS: 54 T: 56 INTERPRETIVE STATEMENTS: Normal sinus rhythm with sinus arrhythmia Normal ECG Compared to ECG 08/07/2022 05:45:09 No significant changes Electronically Signed On 12-15-24 11:28:54 CDT by Orion Wiley
== END 2024-12-14 15:25 | disposition home or self-care (01) ==
LOC: ER 12:14
DX: F14.10 Cocaine abuse, uncomplicated (principal); F12.10 Cannabis abuse, uncomplicated
CPT/HCPCS: 36415; 70450; 80048; 80076; 80143; 80179; 80307; 81003; 82077; 84484; 85025; 85610; 85730; 93005; 99284